=== PATIENT | female | born 1965 | race Caucasian/White ===

== ENCOUNTER 2019-11-18 10:42 | Day surgery (SDC) | payer OTHER ==
[2019-11-13 09:42] VITALS: BMI 32.5
[~2019-11-18 10:42] MED LIST: ACETAMINOPHEN TAB 500 MG TAB PO ONE; DEXAMETHASONE SOD PHOSPHATE 10 MG/ML 1 ML VIAL IV ONE; HEPARIN SODIUM,PORCINE 5,000 UNIT/ML 1 ML VIAL SQ ONE; LACTATED RINGERS 1,000 ML IV SCH; LIDOCAINE 1% (10MG/ML) FOR IV START INTRADERMA PRN; ONDANSETRON 4 MG/2 ML VIAL IVP ONE; Pre Op ABX Message 1 EACH MISC MISCELLANE ONE
[2019-11-18] MEDS ORDERED: HEPARIN SODIUM,PORCINE 5,000 UNIT/ML 1 ML VIAL ONE (11:16)
[2019-11-18] MEDS ORDERED: ACETAMINOPHEN TAB 500 MG TAB ONE (11:16)
[2019-11-18] MEDS ORDERED: ONDANSETRON 4 MG/2 ML VIAL ONE (11:16)
[2019-11-18] MEDS ORDERED: LIDOCAINE 1% INJ 10MG/ML (20 ML MDV) ONE (12:11)
[2019-11-18] MEDS ORDERED: PROPOFOL 10 MG/ML 20 ML VIAL IV ONE (12:11)
[2019-11-18] MEDS ORDERED: MIDAZOLAM 2 MG/2 ML VIAL ONE (12:11)
[2019-11-18] MEDS ORDERED: fentaNYL (PF) 50 MCG/ML 2 ML AMP ONE (12:11)
[2019-11-18] MEDS ORDERED: LIDOCAINE 1%-EPI 1:100,000 20 ML VIAL SQ ONE ×2 (12:23→12:31)
[2019-11-18 12:42] VITALS: RESP 16; TEMP 98
--- NOTE | 2019-11-18 12:49 | P.OP ---
Date of Procedure: 11/18/19 Preoperative Diagnosis: Right arm lipoma 2 Postoperative Diagnosis: Right arm lipoma 2 Procedure(s) Performed: Excision of right arm lipoma 2 Anesthesia: BENNY Surgeon: Bobby Mccullough Estimated Blood Loss (ml): 5 Pathology: other (Right arm lipoma) Condition: stable Disposition: PACU Description of Procedure: The patient's placed on the operating table in the supine position. She received general anesthesia. Her right arm was prepped and draped in sterile fashion. The patient to lipomas. The right upper lipoma was just below the elbow measuring 3 cm diameter. The second lower lipoma was located just above the wrist measuring 3 cm diameter. The skin was incised over each lipoma then using left cautery the lipoma was dissected free and sent to pathology. Identical fashion was used to dissect each lipoma. The skin was then closed interrupted 3-0 Monocryl suture. Dermabond was applied. Patient top she will well she was sent to recovery in stable condition.
--- NOTE | 2019-11-18 12:50 | P.GSHP ---
History of Present Illness H&P Date: 11/18/19 Chief Complaint: Right arm lipoma 2 This 54-year-old female comes today for excision of right arm with posterior patient is to lipomas right arm measuring approximately 3 cm diameter each the upper lipoma is located just below the elbow the lower lipomas located just above the wrist in the right arm. Past Medical History Past Medical History: Asthma, Deep Vein Thrombosis (DVT), GERD/Reflux, Hearing Disorder / Deafness, Hyperlipidemia, Osteoarthritis (OA), Sleep Apnea/CPAP/BIPAP, Thyroid Disorder Additional Past Medical History / Comment(s): BLOOD CLOT LEFT ARM, GRAVES DISEASE History of Any Multi-Drug Resistant Organisms: MRSA Date of last positivie culture/infection: 2017 MDRO Source:: UNDER THE RIGHT BREAST Past Surgical History: Breast Surgery, Cholecystectomy, Tubal Ligation Additional Past Surgical History / Comment(s): RIGHT BREAST SURGERY X2, RIGHT SHOULDER- LIPOMA ,THYROID REMOVED Past Anesthesia/Blood Transfusion Reactions: No Reported Reaction Smoking Status: Current every day smoker - Past Family History Mother Family Medical History: Cancer Father Family Medical History: Cancer Medications and Allergies Home Medications Medication Instructions Recorded Confirmed Type Albuterol Inhaler [Ventolin Hfa 2 puff INHALATION RT-TID PRN 11/13/19 11/18/19 History Inhaler] Chick [place] 4 ml PO BID 11/13/19 11/18/19 History Glysen 1 tab PO QID 11/13/19 11/18/19 History Hemp Oil 2 ml PO BID 11/13/19 11/18/19 History Levothyroxine Sodium [Synthroid] 175 mcg PO DAILY 11/13/19 11/18/19 History Milk Thistle 1,000 mg PO DAILY 11/13/19 11/18/19 History Omeprazole 20 mg PO DAILY 11/13/19 11/18/19 History Paratosin 2 tab PO HS 11/13/19 11/18/19 History Red Marine Algae 2 tab PO BID 11/13/19 11/18/19 History Repair Vit 1 mg pe PO DAILY 11/13/19 11/18/19 History diphenhydrAMINE [Benadryl] 25 mg PO BID 11/13/19 11/18/19 History Allergies Allergy/AdvReac Type Severity Reaction Status Date / Time adhesive tape Allergy Itching Verified 11/18/19 11:07 aripiprazole [From Abilify] Allergy Swelling Verified 11/18/19 11:07 OF THROAT guaifenesin [From Mucinex] Allergy Anaphylaxis Verified 11/18/19 11:07 haloperidol [From Haldol] Allergy Swelling Verified 11/18/19 11:07 OF THROAT latex Allergy Swelling Verified 11/18/19 11:07 tramadol Allergy Swelling Verified 11/18/19 11:07 OF THROAT Surgical - Exam Vital Signs Temp Pulse Resp BP Pulse Ox 97.2 F L 81 18 107/62 98 11/18/19 11:10 11/18/19 11:10 11/18/19 11:10 11/18/19 11:10 11/18/19 11:10 - General well developed, well nourished - Eyes PERRL - Integumentary 3 cm lipoma located on the right arm just below elbow, 3 cm lipoma located just above the right wrist Assessment and Plan Assessment: Lipoma 2. We'll perform excision. We'll perform excision.
[2019-11-18] MEDS: HYDROmorphone 0.5 MG/0.5 ML SYRINGE IVP PRN ×2 (13:05→13:17)
[2019-11-18] MEDS ORDERED: LACTATED RINGERS 1,000 ML IV ONE (13:22)
[2019-11-18 14:04] VITALS: BP 112/77; PULSE 69
== END 2019-11-18 14:10 | disposition home or self-care (01) ==
LOC: OR 10:42
PROVIDERS: ATTEND Surgery
DX: D17.21 Benign lipomatous neoplasm of skin and subcutaneous tissue of right arm (principal); E05.00 Thyrotoxicosis with diffuse goiter without thyrotoxic crisis or storm; K21.9 Gastro-esophageal reflux disease without esophagitis; M19.90 Unspecified osteoarthritis, unspecified site; E78.5 Hyperlipidemia, unspecified; G47.30 Sleep apnea, unspecified; E89.0 Postprocedural hypothyroidism; H91.90 Unspecified hearing loss, unspecified ear; F17.200 Nicotine dependence, unspecified, uncomplicated; Z91.040 Latex allergy status; Z91.048 Other nonmedicinal substance allergy status; Z88.6 Allergy status to analgesic agent; Z88.8 Allergy status to other drugs, medicaments and biological substances; Z86.718 Personal history of other venous thrombosis and embolism; J45.909 Unspecified asthma, uncomplicated; Z86.14 Personal history of Methicillin resistant Staphylococcus aureus infection; Z86.19 Personal history of other infectious and parasitic diseases; Z79.899 Other long term (current) drug therapy; Z80.9 Family history of malignant neoplasm, unspecified; Z90.49 Acquired absence of other specified parts of digestive tract; Z98.890 Other specified postprocedural states
CPT/HCPCS: 88304; 24071; 25071; J2250; J1644; J1100; J2405; J2001; J3010; J2704; J1170

== ENCOUNTER → 2019-12-26 | Day surgery (SDC) | payer OTHER ==
[2019-12-20 11:58] VITALS: BMI 30.9
[~2019-12-26] MED LIST changes: -ACETAMINOPHEN TAB 500 MG TAB PO ONE; -DEXAMETHASONE SOD PHOSPHATE 10 MG/ML 1 ML VIAL IV ONE; -HEPARIN SODIUM,PORCINE 5,000 UNIT/ML 1 ML VIAL SQ ONE; +LIDOCAINE 1% (10MG/ML) FOR IV START INTRADERMA ONE; -LIDOCAINE 1% (10MG/ML) FOR IV START INTRADERMA PRN; +LIDOCAINE 1% INJ 10MG/ML (20 ML MDV) ONE; -ONDANSETRON 4 MG/2 ML VIAL IVP ONE; +PROPOFOL 10 MG/ML 20 ML VIAL IV ONE; -Pre Op ABX Message 1 EACH MISC MISCELLANE ONE
[2019-12-26 08:22] VITALS: RESP 16; TEMP 97.4
--- NOTE | 2019-12-26 08:56 | P.GSHP ---
History of Present Illness H&P Date: 12/26/19 Chief Complaint: GERD, screening colonoscopy This a 54-year-old female been presents for EGD and screening colonoscopy. She's had issues with GERD. Past Medical History Past Medical History: Asthma, COPD, Deep Vein Thrombosis (DVT), GERD/Reflux, Hearing Disorder / Deafness, Hyperlipidemia, Liver Disease, Osteoarthritis (OA), Pneumonia, Sleep Apnea/CPAP/BIPAP, Thyroid Disorder Additional Past Medical History / Comment(s): hx BLOOD CLOT LEFT ARM, GRAVES DISEASE, no cpap used, IBS, diff swallowing, hx hepatitis C-tx 2018, History of Any Multi-Drug Resistant Organisms: MRSA Date of last positivie culture/infection: 2017 MDRO Source:: UNDER THE RIGHT BREAST Past Surgical History: Breast Surgery, Cholecystectomy, Orthopedic Surgery, Tubal Ligation Additional Past Surgical History / Comment(s): RIGHT BREAST SURGERY X2(cyst,abscess), mult lipoma removed from RIGHT SHOULDER, THYROIDECTOMY, lipoma x 2 removed rt arm Past Anesthesia/Blood Transfusion Reactions: No Reported Reaction Smoking Status: Current every day smoker - Past Family History Mother Family Medical History: Cancer Father Family Medical History: Cancer Medications and Allergies Home Medications Medication Instructions Recorded Confirmed Type Albuterol Inhaler [Ventolin Hfa 2 puff INHALATION RT-TID PRN 11/13/19 12/20/19 History Inhaler] Chick [place] 2 ml PO QAM 11/13/19 12/20/19 History Glysen 1 tab PO TID 11/13/19 12/20/19 History Levothyroxine Sodium [Synthroid] 175 mcg PO DAILY 11/13/19 12/20/19 History Milk Thistle 175 mg PO DAILY 11/13/19 12/20/19 History Omeprazole 20 mg PO DAILY 11/13/19 12/20/19 History Red Marine Algae 700 mg PO QAM 11/13/19 12/20/19 History Repair Vit 1 mg pe PO DAILY 11/13/19 12/20/19 History diphenhydrAMINE [Benadryl] 25 mg PO BID PRN 11/13/19 12/20/19 History Calcium/Magnesium/Zinc 1 each PO DAILY 12/20/19 12/20/19 History [Lpfwcbb-Jduetfxps-Ejsq Tablet] Calm 5 2 ml PO QAM 12/20/19 12/20/19 History Fuse 1 applicate PO BID 12/20/19 12/20/19 History Tiffany Cap 2 cap PO DAILY 12/20/19 12/20/19 History Magnesium 400 mg PO BID 12/20/19 12/20/19 History Parastosin 3 tab PO HS 12/20/19 12/20/19 History Allergies Allergy/AdvReac Type Severity Reaction Status Date / Time adhesive tape Allergy Itching Verified 12/26/19 08:17 aripiprazole [From Abilify] Allergy Swelling Verified 12/26/19 08:17 OF THROAT guaifenesin [From Mucinex] Allergy Anaphylaxis Verified 12/20/19 11:40 haloperidol [From Haldol] Allergy Swelling Verified 12/26/19 08:17 OF THROAT latex Allergy Swelling/it Verified 12/26/19 08:17 armand tramadol Allergy Swelling Verified 12/26/19 08:17 OF THROAT Surgical - Exam Vital Signs Temp Pulse Resp BP Pulse Ox 97.4 F L 69 16 107/66 99 12/26/19 08:21 12/26/19 08:21 12/26/19 08:21 12/26/19 08:21 12/26/19 08:21 - General well developed, well nourished, no distress - Eyes PERRL - ENT normal pinna - Neck no masses - Respiratory normal expansion - Cardiovascular Rhythm: regular - Abdomen Abdomen: soft, non tender Assessment and Plan Assessment: GERD we'll perform EGD and screening colonoscopy
--- NOTE | 2019-12-26 09:11 | P.OP ---
Date of Procedure: 12/26/19 Preoperative Diagnosis: . GERD Screening colonoscopy Postoperative Diagnosis: Antral gastritis Small hiatal hernia Procedure(s) Performed: EGD Colonoscopy Anesthesia: MAC Surgeon: Bobby Mccullough Pathology: other (Antrum) Condition: stable Disposition: PACU Description of Procedure: The patient's placed on the endoscopy table in the lateral position. She received IV sedation. The gastroscope was placed in the oropharynx passed in the esophagus and stomach. Scope was then placed through the pylorus. The first and second portion of the duodenum appeared normal. Scope was then brought back the antrum and this was mildly inflamed. A biopsies performed. Scope was retroflexed and remainder stomach appeared normal. There was a small hiatal hernia. The GE junction was at 40 cm. The distal esophagus appeared normal. The proximal esophagus. Normal. The scope was withdrawn for patient. Next digital rectal exam is performed which revealed external hemorrhoids. Flexible colonoscope was then placed patient anus passed throughout the entire colon. The ileocecal valve was visualized. The cecum, ascending and transverse colon appeared normal. In the descending colon was a few scattered diverticula. Scope was brought back the sigmoid colon this appeared normal. Scope was back the rectum there was a small sessile polyp removed with a cold forcep. Scope was withdrawn for patient.
[2019-12-26 09:46] VITALS: BP 121/80; PULSE 79
== END | disposition home or self-care (01) ==
LOC: MERGE 12-12 09:05 → ORWHC2ENDO 07:50
PROVIDERS: ATTEND Surgery
DX: Z12.11 Encounter for screening for malignant neoplasm of colon (principal); K62.1 Rectal polyp; K29.50 Unspecified chronic gastritis without bleeding; K21.9 Gastro-esophageal reflux disease without esophagitis; K44.9 Diaphragmatic hernia without obstruction or gangrene; K64.4 Residual hemorrhoidal skin tags; K57.30 Diverticulosis of large intestine without perforation or abscess without bleeding; J44.9 Chronic obstructive pulmonary disease, unspecified; R13.10 Dysphagia, unspecified; K58.9 Irritable bowel syndrome, unspecified; Z86.718 Personal history of other venous thrombosis and embolism; H91.90 Unspecified hearing loss, unspecified ear; E78.5 Hyperlipidemia, unspecified; E89.0 Postprocedural hypothyroidism; K76.9 Liver disease, unspecified; M19.90 Unspecified osteoarthritis, unspecified site; Z87.01 Personal history of pneumonia (recurrent); G47.30 Sleep apnea, unspecified; Z99.89 Dependence on other enabling machines and devices; E05.00 Thyrotoxicosis with diffuse goiter without thyrotoxic crisis or storm; F25.9 Schizoaffective disorder, unspecified; Z86.19 Personal history of other infectious and parasitic diseases; Z86.14 Personal history of Methicillin resistant Staphylococcus aureus infection; Z90.49 Acquired absence of other specified parts of digestive tract; Z98.51 Tubal ligation status; Z98.890 Other specified postprocedural states; F17.200 Nicotine dependence, unspecified, uncomplicated; Z80.9 Family history of malignant neoplasm, unspecified; Z79.890 Hormone replacement therapy; Z79.899 Other long term (current) drug therapy; Z91.040 Latex allergy status; Z88.5 Allergy status to narcotic agent; Z88.8 Allergy status to other drugs, medicaments and biological substances; Z91.09 Other allergy status, other than to drugs and biological substances
CPT/HCPCS: 88305; 45380; 43239; J2001; J2704

== ENCOUNTER 2020-06-30 19:23 | Observation (INO) | payer OTHER ==
[2020-06-30] MEDS ORDERED: SODIUM CHLORIDE 0.9% 500 ML 500 ML IV STA (19:44)
--- NOTE | 2020-06-30 19:59 | ED ---
General Adult HPI - General Chief complaint: Weakness Stated complaint: Slurred speach,Arm numbness Time Seen by Provider: 06/30/20 19:39 Source: patient, RN notes reviewed, old records reviewed Mode of arrival: ambulatory Limitations: no limitations - History of Present Illness Initial comments: 54-year-old female presenting with right arm weakness which has been ongoing for the past 2 weeks. This is associated with pain and she was scheduled to see her primary care for evaluation. However the symptoms have worsened. She states that she no reported some weakness in her right leg. And at 5:30 PM she had an episode of slurred speech. This has since resolved. She has no previous history of CVA. She states that her limb weakness was associated with pain and ongoing for several weeks but the slurred speech was new. She has no slurred speech or facial weakness at the time my evaluation the symptoms have completely resolved. No chest pain or dyspnea. No abdominal pain nausea vomiting. No fever. - Related Data Home Medications Medication Instructions Recorded Confirmed Albuterol Inhaler [Ventolin Hfa 2 puff INHALATION RT-Q4H PRN 11/13/19 06/30/20 Inhaler] Omeprazole 20 mg PO DAILY 11/13/19 06/30/20 Levothyroxine Sodium [Synthroid] 150 mcg PO DAILY 06/30/20 06/30/20 Lurasidone HCl [Latuda] 120 mg PO HS 06/30/20 06/30/20 Prazosin HCl 1 mg PO HS 06/30/20 06/30/20 Sulfamethox-Tmp 800-160Mg [Bactrim 1 tab PO BID 06/30/20 06/30/20 DS 800-160 mg] Varenicline [Chantix Continuing 1 mg PO BID 06/30/20 06/30/20 Pack] hydrOXYzine pamoate [hydrOXYzine 25 mg PO BID PRN 06/30/20 06/30/20 PAMOATE] metroNIDAZOLE [Flagyl] 500 mg PO DIRECTED 06/30/20 06/30/20 traZODone HCL 300 mg PO HS PRN 06/30/20 06/30/20 Allergies Allergy/AdvReac Type Severity Reaction Status Date / Time adhesive tape Allergy Itching Verified 06/30/20 21:36 aripiprazole [From Abilify] Allergy Swelling Verified 06/30/20 21:36 OF THROAT guaifenesin [From Mucinex] Allergy Anaphylaxis Verified 06/30/20 21:36 haloperidol [From Haldol] Allergy Swelling Verified 06/30/20 21:36 OF THROAT latex Allergy Swelling/it Verified 06/30/20 21:36 armand tramadol Allergy Swelling Verified 06/30/20 21:36 OF THROAT Review of Systems ROS Statement: Those systems with pertinent positive or pertinent negative responses have been documented in the HPI. ROS Other: All systems not noted in ROS Statement are negative. Past Medical History Past Medical History: Asthma, COPD, Deep Vein Thrombosis (DVT), GERD/Reflux, Hearing Disorder / Deafness, Hyperlipidemia, Liver Disease, Osteoarthritis (OA), Pneumonia, Sleep Apnea/CPAP/BIPAP, Thyroid Disorder Additional Past Medical History / Comment(s): hx BLOOD CLOT LEFT ARM, GRAVES DISEASE, no cpap used, IBS, diff swallowing, hx hepatitis C-tx 2017, History of Any Multi-Drug Resistant Organisms: MRSA Date of last positivie culture/infection: 2016 MDRO Source:: UNDER THE RIGHT BREAST Past Surgical History: Breast Surgery, Cholecystectomy, Orthopedic Surgery, Tubal Ligation Additional Past Surgical History / Comment(s): RIGHT BREAST SURGERY X2(cyst,abscess), mult lipoma removed from RIGHT SHOULDER, THYROIDECTOMY, lipoma x 2 removed rt arm Past Anesthesia/Blood Transfusion Reactions: No Reported Reaction Past Psychological History: Anxiety, Bipolar, Depression, PTSD, Schizoaffective Disorder Smoking Status: Current every day smoker Past Alcohol Use History: None Reported Past Drug Use History: None Reported - Past Family History Mother Family Medical History: Cancer Father Family Medical History: Cancer General Exam Limitations: no limitations General appearance: alert, in no apparent distress Head exam: Present: atraumatic, normocephalic Eye exam: Present: normal appearance, PERRL ENT exam: Present: normal exam Neck exam: Present: normal inspection, tenderness Respiratory exam: Present: normal lung sounds bilaterally. Absent: respiratory distress, wheezes Cardiovascular Exam: Present: regular rate, normal rhythm GI/Abdominal exam: Present: soft, distended. Absent: tenderness, guarding Extremities exam: Present: normal inspection, normal capillary refill. Absent: full ROM (Decreased range of motion of the right upper extremity secondary to pain.), pedal edema Neurological exam: Present: alert, oriented X3, CN II-XII intact, motor sensory deficit (Drift in the right upper extremity, normal speech) Psychiatric exam: Present: normal affect, normal mood Skin exam: Present: warm, dry, intact. Absent: cyanosis, diaphoretic Course Vital Signs 06/30/20 19:34 Temperature 98.6 F Pulse Rate 91 Respiratory 20 Rate Blood Pressure 131/77 O2 Sat by Pulse 97 Oximetry EKG Findings - EKG Comments: EKG Findings:: EKG: Normal sinus rhythm, possible left atrial enlargement, low voltage, rate of 88, Q ROS duration 68, NE interval 146, QTC 445, no ST segment elevation. Medical Decision Making - Medical Decision Making 54-year-old female with an episode of slurred speech currently resolved. Additional complaint of weakness in the right arm which is associated with pain and has been present for the last 2 weeks. This does seem more musculoskeletal rather than acute CVA. Her dysarthria was acute in onset and currently resolved suggestive of a TIA. Workup in the emergency department included CT CT angiography which is negative for intracranial hemorrhage, or acute occlusion or stenosis. Patient has normal CBC, normal CMP. She is given an aspirin in the emergency department. She will be admitted for TIA evaluation. Case discussed with Dr. Aden who will admit. Neurology placed on consult. - Lab Data Result diagrams: 06/30/20 20:16 06/30/20 20:16 Lab Results 06/30/20 06/30/20 06/30/20 Range/Units 20:16 20:16 20:16 WBC 8.5 (3.8-10.6) k/uL RBC 3.94 (3.80-5.40) m/uL Hgb 13.2 (11.4-16.0) gm/dL Hct 37.9 (34.0-46.0) % MCV 96.3 (80.0-100.0) fL MCH 33.5 (25.0-35.0) pg MCHC 34.7 (31.0-37.0) g/dL RDW 12.8 (11.5-15.5) % Plt Count 247 (150-450) k/uL MPV 6.6 Neutrophils % 45 % Lymphocytes % 42 % Monocytes % 5 % Eosinophils % 5 % Basophils % 1 % Neutrophils # 3.8 (1.3-7.7) k/uL Lymphocytes # 3.6 (1.0-4.8) k/uL Monocytes # 0.4 (0-1.0) k/uL Eosinophils # 0.5 (0-0.7) k/uL Basophils # 0.0 (0-0.2) k/uL PT 9.7 (9.0-12.0) sec INR 0.9 (<1.2) APTT 22.3 (22.0-30.0) sec Sodium (137-145) mmol/L Potassium (3.5-5.1) mmol/L Chloride (98-107) mmol/L Carbon Dioxide (22-30) mmol/L Anion Gap mmol/L BUN (7-17) mg/dL Creatinine (0.52-1.04) mg/dL Est GFR (CKD-EPI)AfAm (>60 ml/min/1.73 sqM) Est GFR (CKD-EPI)NonAf (>60 ml/min/1.73 sqM) Glucose (74-99) mg/dL Calcium (8.4-10.2) mg/dL Total Bilirubin (0.2-1.3) mg/dL AST (14-36) U/L ALT (4-34) U/L Alkaline Phosphatase (38-126) U/L Troponin I (0.000-0.034) ng/mL Total Protein (6.3-8.2) g/dL Albumin (3.5-5.0) g/dL Urine Color Yellow Urine Appearance Clear (Clear) Urine pH 7.5 (5.0-8.0) Ur Specific Craig 1.008 (1.001-1.035) Urine Protein Negative (Negative) Urine Glucose (UA) Negative (Negative) Urine Ketones Negative (Negative) Urine Blood Negative (Negative) Urine Nitrite Negative (Negative) Urine Bilirubin Negative (Negative) Urine Urobilinogen <2.0 (<2.0) mg/dL Ur Leukocyte Esterase Negative (Negative) 06/30/20 06/30/20 Range/Units 20:16 20:16 WBC (3.8-10.6) k/uL RBC (3.80-5.40) m/uL Hgb (11.4-16.0) gm/dL Hct (34.0-46.0) % MCV (80.0-100.0) fL MCH (25.0-35.0) pg MCHC (31.0-37.0) g/dL RDW (11.5-15.5) % Plt Count (150-450) k/uL MPV Neutrophils % % Lymphocytes % % Monocytes % % Eosinophils % % Basophils % % Neutrophils # (1.3-7.7) k/uL Lymphocytes # (1.0-4.8) k/uL Monocytes # (0-1.0) k/uL Eosinophils # (0-0.7) k/uL Basophils # (0-0.2) k/uL PT (9.0-12.0) sec INR (<1.2) APTT (22.0-30.0) sec Sodium 135 L (137-145) mmol/L Potassium 4.5 (3.5-5.1) mmol/L Chloride 102 (98-107) mmol/L Carbon Dioxide 26 (22-30) mmol/L Anion Gap 7 mmol/L BUN 11 (7-17) mg/dL Creatinine 1.07 H (0.52-1.04) mg/dL Est GFR (CKD-EPI)AfAm 68 (>60 ml/min/1.73 sqM) Est GFR (CKD-EPI)NonAf 59 (>60 ml/min/1.73 sqM) Glucose 100 H (74-99) mg/dL Calcium 9.2 (8.4-10.2) mg/dL Total Bilirubin 0.4 (0.2-1.3) mg/dL AST 23 (14-36) U/L ALT 14 (4-34) U/L Alkaline Phosphatase 57 (38-126) U/L Troponin I <0.012 (0.000-0.034) ng/mL Total Protein 7.9 (6.3-8.2) g/dL Albumin 4.6 (3.5-5.0) g/dL Urine Color Urine Appearance (Clear) Urine pH (5.0-8.0) Ur Specific Craig (1.001-1.035) Urine Protein (Negative) Urine Glucose (UA) (Negative) Urine Ketones (Negative) Urine Blood (Negative) Urine Nitrite (Negative) Urine Bilirubin (Negative) Urine Urobilinogen (<2.0) mg/dL Ur Leukocyte Esterase (Negative) Disposition Clinical Impression: TIA (transient ischemic attack) Disposition: ADMITTED IP TO THIS HOSP Condition: Stable Is patient prescribed a controlled substance at d/c from ED?: No Referrals: Corinne Guzmán MD [Primary Care Provider] - 1-2 days Decision to Admit Reason: Admit from EC Decision Date: 06/30/20 Decision Time: 21:55
[2020-06-30 20:31] LABS: Basophils % (A) 1 %; Eosinophils # (A) 0.5 k/uL (0-0.7); Eosinophils % (A) 5 %; HCT 37.9 % (34.0-46.0); HGB 13.2 gm/dL (11.4-16.0); Lymphocytes # (A) 3.6 k/uL (1.0-4.8); Lymphocytes % (A) 42 %; MCH 33.5 pg (25.0-35.0); MCHC 34.7 g/dL (31.0-37.0); MCV 96.3 fL (80.0-100.0); Mean Platelet Volume 6.6; Monocytes # (A) 0.4 k/uL (0-1.0); Monocytes % (A) 5 %; Neutrophils # (A) 3.8 k/uL (1.3-7.7); Neutrophils % (A) 45 %; Platelet Count 247 k/uL (150-450); RBC 3.94 m/uL (3.80-5.40); RDW 12.8 % (11.5-15.5); WBC 8.5 k/uL (3.8-10.6)
[2020-06-30 20:47] LABS: Appearance,Urine Clear (Clear); Bilirubin,Urine Negative (Negative); Blood,Urine Negative (Negative); Color,Urine Yellow; Glucose,Urine (UA) Negative (Negative); Ketones,Urine Negative (Negative); Leukocyte Esterase,Urine Negative (Negative); Nitrite,Urine Negative (Negative); PH, Urine 7.5 (5.0-8.0); Protein,Urine Negative (Negative); Specific Gravity,Urine 1.008 (1.001-1.035); Urobilinogen,Urine <2.0 mg/dL (<2.0)
[2020-06-30 20:51] LABS: Albumin 4.6 g/dL (3.5-5.0); Calcium 9.2 mg/dL (8.4-10.2); Potassium 4.5 mmol/L (3.5-5.1); Total Bilirubin 0.4 mg/dL (0.2-1.3); Total Protein 7.9 g/dL (6.3-8.2)
[2020-06-30 20:52] LABS: INR 0.9 (<1.2); Partial Thromboplastin Time 22.3 sec (22.0-30.0); Prothrombin Time 9.7 sec (9.0-12.0)
--- NOTE | 2020-06-30 21:13 | CT ---
EXAMINATION TYPE: CT brain wo con DATE OF EXAM: 06/30/2020 COMPARISON: None HISTORY: Neuro deficits. Pt c/o slurred speech, numbness in RT hands and bilateral feet. Not called a s code stroke CT DLP: 1161.8 mGycm Automated exposure control for dose reduction was used. Ventricles have normal size. There is no mass effect nor midline shift. There is no sign of intracran ial hemorrhage. Calvarium is intact. Skull base is intact. There is no evidence of cerebral edema. IMPRESSION: Negative unenhanced head CT scan.
--- NOTE | 2020-06-30 21:26 | XR ---
EXAMINATION TYPE: XR chest 2V DATE OF EXAM: 06/30/2020 COMPARISON: NONE HISTORY: Altered mental status. Weakness. TECHNIQUE: 2 views FINDINGS: Heart and mediastinum are normal. Lungs are clear. Diaphragm is normal. Bony thorax appears normal. There are chest leads. IMPRESSION: Normal chest. Normal heart.
--- NOTE | 2020-06-30 21:33 | CT ---
EXAMINATION TYPE: CT angio head neck DATE OF EXAM: 06/30/2020 COMPARISON: None HISTORY: Neuro deficits. Pt c/o slurred speech, numbness in RT hands and bilateral feet. Not called a s code stroke. Isovue CT DLP: 537.3 mGycm Automated exposure control for dose reduction was used. CONTRAST: Performed with IV Contrast, patient injected with 100 mL of Isovue 370. There are 3-D post processed images. There is normal branching pattern of the great vessels on the aortic arch. There is bilateral arteria l flow in the subclavian arteries. There is arterial flow in the common internal and external carotid arteries bilaterally. There is arterial flow in both vertebral arteries. There is arterial flow in t he vertebrobasilar artery system. There is wide patency of the carotid artery bifurcations. I see no significant plaque formation. There is no evidence of carotid or vertebral artery aneurysm or dissect ion. There is arterial flow in the anterior middle and posterior cerebral arteries. There is no mass effec t. There is no evidence of intracranial aneurysm or neovascularity. There is normal contrast opacific ation of the venous sinuses. There is no evidence of intracranial arterial stenosis. IMPRESSION: Negative CT angiogram of the neck. Negative CT angiogram of the brain.
[2020-06-30] MEDS ORDERED: ASPIRIN 325 MG TAB PO STA (21:37)
[2020-06-30] MEDS ORDERED: ACETAMINOPHEN TAB 325 MG TAB PO PRN (21:52)
[2020-06-30] MEDS ORDERED: KETOROLAC 15 MG/ML 1 ML VIAL IVP STA (21:56)
[2020-06-30] MEDS: SODIUM CHLORIDE 0.9% 1,000 ML IV SCH (22:06)
[2020-07-01] MEDS ORDERED: hydrOXYzine pamoate 25 MG CAP PO PRN (01:00)
[2020-07-01] MEDS: traZODone HCL 100 MG TAB PO PRN ×2 (02:13→20:56)
[2020-07-01] MEDS: LURASIDONE HCL 120 MG PO SCH ×2 (02:14→20:53)
[2020-07-01 05:26] LABS: Cholesterol 211 mg/dL (<200); HDL Cholesterol 45 mg/dL (40-60); LDL Cholesterol,Calculated 133 mg/dL (0-99); Triglycerides 166 mg/dL (<150)
[2020-07-01] MEDS: LEVOTHYROXINE 75 MCG TAB PO SCH (05:49)
[2020-07-01] MEDS: SODIUM CHLORIDE 0.9% 1,000 ML IV SCH ×2 (08:49→18:08)
[2020-07-01] MEDS: PANTOPRAZOLE 40 MG TABLET PO SCH (08:49)
[2020-07-01] MEDS ORDERED: ASPIRIN 325 MG TAB PO SCH (09:00)
[2020-07-01] MEDS ORDERED: ALPRAZolam 0.5 MG TAB PO STA (09:18)
--- NOTE | 2020-07-01 12:01 | P.CNNES ---
History of Present Illness Consult date: 07/01/20 Requesting physician: Delroy Sahu Reason for Consult: transient episode of slurred speech History of Present Illness: This is a 54-year-old woman with medical history of poly-drug abuse for years (sober for 3 years), heavy alcohol use (sober for past 1 year), alcohol withdrawl seizue, hyperlipidemia, hypothyroidism, DVT (from IV drug use about 3 years ago), hepatitis C (from IV drug use that received treatment in past and is in remission for past 3 years) that presented emergency department on 06/30/2020 for a transient episode of slurred speech. Patient stated that the according to her sister yesterday she was at the patient had slurring the speech that lasted for a few hours to and resolved. Per the ED note the it is mentioned that the she had the episode of slurring the speech at 5:30 PM yesterday. Upon asking the patient if she felt like she was slurring her speech she said was hard for her to tell. But she denies any focal weakness or any new numbness she was seen with this. She stated for the last 2 weeks she's been having right arm pain that it's very excruciating and she is having difficulty raising her arm as a result of her right arm pain. He said the right arm radiates down all the way to her entire right hand. She said that this has happened all of a sudden about 2 weeks ago. Upon asking her if she is having neck pain that's rating down she said yes with further history she said she has chronic neck pain that radiates down basically bilateral arms but it seems that this is a new right arm pain but it is very hard to get that history from the patient. As well as she is having the pain and her right medial thigh region also going on for last 2 weeks and she's having difficulty as well as the raising the leg but she said the arm is worse than that the leg. She said that she has numbness in the the all the fingertips of the right hand as well as the right foot numbness but then later she was tell me that that she has numbness that been going on for some years of both hands and feet but possibly this is as been worsening. He notices intermittent cramping of her bilateral lower extremity mostly in the feet that intermittent for past couple weeks. She has this chronic back pain that sometimes shoots down all the way to the hands. She said she also has a chronic lower back pain and she was told the by optimization specialist that she has a missing disc in her lower back and the she was supposed to get surgery in the past but is was never addressed since she moved back after being the clean from drugs. She also has a chronic bilateral hip pain and she was told that she has some tearing of bilateral hips. As stated above the patient has a chronic history of poly-drug use but she is been the clean for the last 3 years. She stated that she was the IV drugs as a heroin and multiple drugs. She as a result of the IV drug use she had DVT about was not on any the long-term anticoagulation. She's been the heavy alcohol use and she's been sober for last 1 year. She said in the past she stopped a optimization specialist at at [place] and she was told that she needed surgery but this was not addressed because she was doing drugs and the currently moved back home since being sober Workup in the hospital consisted of: Initial vital signs: Blood pressure 131/77, heart rate of 91, temperature of 98.6 Fahrenheit, respiratory of 20, pulse ox of 97% at room air. CT of the head is reported as negative unenhanced head CT scan. CT angiography of the head and neck is reported as negative for both. EKG is reported as normal sinus rhythm. Possible left atrial enlargement. Low voltage QRS. Septal infarct, age undetermined. Abnormal EKG. Initial white blood cells 8.5 which is normal. Initial serum glucose was 100. Lipid panel: Triglyceride 166, triglyceride of 211, LDL is 133, HDL is 45. The ED felt the patient and they felt her weakness of the right arm is likely due to musculoskeletal because of the pain and felt this was more transient ischemic attack because of the slurred speech. Review of Systems Review of system: The 12 point system was reviewed and apparent positive and negative per HPI. Past Medical History Past Medical History: Asthma, COPD, Deep Vein Thrombosis (DVT), GERD/Reflux, Hearing Disorder / Deafness, Hyperlipidemia, Liver Disease, Osteoarthritis (OA), Pneumonia, Sleep Apnea/CPAP/BIPAP, Thyroid Disorder Additional Past Medical History / Comment(s): hx BLOOD CLOT LEFT ARM, GRAVES DISEASE, no cpap used, IBS, diff swallowing, hx hepatitis C-tx 2017, History of Any Multi-Drug Resistant Organisms: MRSA Date of last positivie culture/infection: 2016 MDRO Source:: UNDER THE RIGHT BREAST Past Surgical History: Breast Surgery, Cholecystectomy, Orthopedic Surgery, Tubal Ligation Additional Past Surgical History / Comment(s): RIGHT BREAST SURGERY X2(cyst,abscess), mult lipoma removed from RIGHT SHOULDER, THYROIDECTOMY, lipoma x 2 removed rt arm Past Anesthesia/Blood Transfusion Reactions: No Reported Reaction Past Psychological History: Anxiety, Bipolar, Depression, PTSD, Schizoaffective Disorder Smoking Status: Current every day smoker Past Alcohol Use History: None Reported Additional Past Alcohol Use History / Comment(s): STARTED SMOKING AT AGE 5 QUIT ON AND OFF (TRYING TO QUIT NOW) 1/2 PPD. HISTORY OF ALCOHOL ABUSE Past Drug Use History: None Reported Additional Drug Use History / Comment(s): LAST DRUGS TAKEN DEC 2017. USES HEMP OIL(fuse) NOW FOR DEPRESSION - Past Family History Mother Family Medical History: Cancer Father Family Medical History: Cancer Medications and Allergies Home Medications Medication Instructions Recorded Confirmed Type Albuterol Inhaler [Ventolin Hfa 2 puff INHALATION RT-Q4H PRN 11/13/19 06/30/20 History Inhaler] Omeprazole 20 mg PO DAILY 11/13/19 06/30/20 History Levothyroxine Sodium [Synthroid] 150 mcg PO DAILY 06/30/20 06/30/20 History Lurasidone HCl [Latuda] 120 mg PO HS 06/30/20 06/30/20 History Prazosin HCl 1 mg PO HS 06/30/20 06/30/20 History Sulfamethox-Tmp 800-160Mg [Bactrim 1 tab PO BID 06/30/20 06/30/20 History DS 800-160 mg] Varenicline [Chantix Continuing 1 mg PO BID 06/30/20 06/30/20 History Pack] hydrOXYzine pamoate [hydrOXYzine 25 mg PO BID PRN 06/30/20 06/30/20 History PAMOATE] metroNIDAZOLE [Flagyl] 500 mg PO DIRECTED 06/30/20 06/30/20 History traZODone HCL 300 mg PO HS PRN 06/30/20 06/30/20 History Allergies Allergy/AdvReac Type Severity Reaction Status Date / Time adhesive tape Allergy Itching Verified 06/30/20 21:36 aripiprazole [From Abilify] Allergy Swelling Verified 06/30/20 21:36 OF THROAT guaifenesin [From Mucinex] Allergy Anaphylaxis Verified 06/30/20 21:36 haloperidol [From Haldol] Allergy Swelling Verified 06/30/20 21:36 OF THROAT latex Allergy Swelling/it Verified 06/30/20 21:36 armand tramadol Allergy Swelling Verified 06/30/20 21:36 OF THROAT Physical Examination - Vital Signs Vital Signs: Vital Signs Temp Pulse Pulse Resp BP BP Pulse Ox 07/01/20 07:15 98.1 F 64 18 98/59 96 07/01/20 04:53 97.6 F 73 18 115/73 98 07/01/20 02:53 97.5 F L 75 18 115/73 96 07/01/20 02:00 97.6 F 73 18 110/75 96 07/01/20 00:53 97.4 F L 67 18 117/88 99 07/01/20 00:35 97.4 F L 67 18 117/58 99 07/01/20 00:00 98.8 F 91 20 138/65 97 06/30/20 22:00 91 20 139/75 97 06/30/20 21:00 91 20 97 06/30/20 19:34 98.6 F 91 20 131/77 97 Intake and Output 06/30/20 07/01/20 07/01/20 22:59 06:59 14:59 Other: Voiding Method Toilet # Voids 2 Weight 80.4 kg 86.183 kg GENERAL: The patient is lying in bed and is in moderate acute distress. CHEST: The heart rate is regular rate rhythm. No murmurs to auscultation. No carotid bruit bilaterally. LUNG: Clear to auscultation bilaterally no wheezing noted throughout. Not labored breathing. ABDOMEN/GI: Bowel sounds present in all 4 quadrants. No tenderness to palpation throughout. NEUROLOGICAL: Higher mental function: The patient is awake, alert, oriented to self, place and time. Patient is following commands. No aphasia and no neglect. Cranial nerves: The pupils are round, equal and reactive to light and accommodation. Visual guerrier are full to confrontation throughout. Extraocular movement is intact no nystagmus is noted. Facial sensation is normal to touch throughout (at times she felt it was decreased sporadically in different spots but with multiple repeated it was normal). The facial strength is normal throughout. Hearing is normal bilaterally to hand rub. Tongue is midline and moved [id number] without any difficulty. No dysarthria is noted. Shoulder shrug is limited over the right because of pain. While left is normal. Motor: Gait is deferred because of pain. The strength is able to have 4/5 over the right distal hand but entire right upper extremity is limited because of pain. The right lower extremity was able to lift above gravity but again limit ed because of pain. The left is 5 over 5 throughout. Normal tone and bulk. Cerebellum: Normal finger to nose bilaterally. Sensation: Sensation is normal to touch throughout (at times she felt it was decreased sporadically in different spots but with multiple repeated it was normal). Reflexes (right/left): 2+ throughout except patellar are 3+ bilaterally. Plantars are downgoing bilaterally. Results Sodium is 135 which is minimally low. Coagulation study: PT of 9.7, INR 0.9 and PTT of 22.3. Che virus PCR is nondetected Urinalysis is negative for urinary tract infection. - Laboratory Findings CBC and BMP: 06/30/20 20:16 06/30/20 20:16 Abnormal Lab Findings: Abnormal Labs 06/30/20 07/01/20 20:16 04:30 Sodium 135 L Creatinine 1.07 H Glucose 100 H Triglycerides 166 H Cholesterol 211 H LDL Cholesterol, Calc 133 H Assessment and Plan Assessment: This is a 54-year-old woman with medical history of hyperlipidemia, hypothyroidism, DVT, hepatitis C, sleep apnea that presented emergency department on 06/30/2020 for a transient episode of slurred speech. She's been having right arm pain as well as right medial thigh pain for the last 2 weeks to arm is worse in the thigh as well as chronic neck pain that radiates down as well as chronic lower back pain. He is been complaining of intermittent sensory loss in the hands and feet but she said that it's been going on for a while but may be worse lately ?Transient episode of dysarthria seems possibly transient ischemic attack (per patient she was not sure if she slurred or not but her sister felt that way) Two-week history of right arm pain and right thigh pain with chronic neck pain as well as lower back pain one of the consideration is a little radiculopathic/plexopathy/mononeuritis multiplex Chronic history of polysubstance use and the patient's been in the remission for 3 years Chronic heavy alcohol use and been sober for the last 1 year Dyslipidemia Hypothyroidism History of sleep apnea History of hepatitis C History of DVT from IV drug use in the past (not on anticoagulation). Plan: CT of the head is reported as negative unenhanced head CT scan. CT angiography of the head and neck is reported as negative for both. Lipid panel: Triglyceride 166, triglyceride of 211, LDL is 133, HDL is 45. Patient is on aspirin 325 mg daily. I lowered the aspirin from 325 to 81 mg. I started the patient on Lipitor 10 mg (for now since has arm pain and leg pain. If CPK is normal then increase lipitor to 40mg qhs). The goal strokes of LDL less than 70. I ordered MRI of the brain and MRI Cervical spine Ordered TSH, hemoglobin A1c (to rule out diabetes that can cause polyneuropathy or polyradiculopathy), Vitamin B12 level, b6, folate level. Ordered Hepatitis B and C panel 2-D echo was ordered by the ED and is pending PT, OT and [employer] team are consulted. Per speech therapy team "Pt exhibited a mild lateral lisp with distorted /s, sh/ phonemes. Performance was inconsistent at times with pt intermittently exhibiting normal articulatory precision. Abnormal jaw posturing was also observed with pt inconsistently exhibiting an underbite". Continue every 4 hour neuro checks Placed the patient on continuous cardiac monitoring. Place patient on thiamine 100mg daily. The patient needs EMG with nerve conduction study as an outpatient since we don't have one now facility. Recommend getting it within 1-2 weeks as outpatient. I consulted orthopedic team since patient has chronic neck pain and lower back pain and was told she needed surgery of lower back since missing a disc. The plan was discussed with the patient as well as the patient's nurse. Thank you for the consultation. Sabino Baez M.D. Neuro-hospitalist Time with Patient: Greater than 30
--- NOTE | 2020-07-01 12:29 | ECHOF ---
Referral Reason:Thrombus MEASUREMENTS -------- HEIGHT: 162.6 cm WEIGHT: 86.2 kg BP: IVSd: 1.1 cm (0.6 - 1.1) LVIDd: 3.9 cm (3.9 - 5.3) LVPWd: 1.4 cm (0.6 - 1.1) IVSs: 1.7 cm LVIDs: 2.4 cm LVPWs: 1.8 cm LAESV Index (A-L): 29.92 ml/m Ao Diam: 3.1 cm (2.0 - 3.7) AV Cusp: 1.7 cm (1.5 - 2.6) MV EXCURSION: 11.800 mm (> 18.000) MV EF SLOPE: 127 mm/s (70 - 150) EPSS: 0.8 cm MV E Billy: 0.76 m/s MV DecT: 213 ms MV A Billy: 0.62 m/s MV E/A Ratio: 1.22 AV maxP.16 mmHg AV meanP.79 mmHg RAP: 5.00 mmHg RVSP: 26.80 mmHg FINDINGS -------- This was a technically good study. The left ventricular size is normal. There is mild concentric left ventricular hypertrophy. Overa ll left ventricular systolic function is normal with, an EF between 55 - 60 %. The diastolic fillin g pattern is normal for the age of the patient 9.34. The right ventricle is normal in size. LA is midly dilated 29-33ml/m2. The right atrial size is normal. Interatrial and interventricular septum intact. Aortic valve is trileaflet and is mildly thickened. There is mild aortic valve sclerosis. Peak/me an gradient across the Aortic Valve is 12.16mmHg / 6.79mmHg. The mitral valve is normal. Mild mitral regurgitation is present. The tricuspid valve appears structurally normal. Mild tricuspid regurgitation present. Right vent ricular systolic pressure is normal at < 35 mmHg. There is no pulmonic regurgitation present. The aortic root size is normal. Normal inferior vena cava with normal inspiratory collapse consistent with estimated right atrial pre ssure of 5 mmHg. There is no pericardial effusion. CONCLUSIONS -------- 1. The left ventricular size is normal. 2. There is mild concentric left ventricular hypertrophy. 3. Overall left ventricular systolic function is normal with, an EF between 55 - 60 %. 4. The diastolic filling pattern is normal for the age of the patient 9.34 5. LA is midly dilated 29-33ml/m2. 6. Aortic valve is trileaflet and is mildly thickened. 7. There is mild aortic valve sclerosis. 8. Peak/mean gradient across the Aortic Valve is 12.16mmHg / 6.79mmHg. 9. Mild mitral regurgitation is present. 10. Mild tricuspid regurgitation present. 11. There is no pericardial effusion. WAREHOUSE ORDER SELECTOR: Mira Bruno RDCS
--- NOTE | 2020-07-01 16:59 | MR ---
EXAMINATION TYPE: MR brain wo con DATE OF EXAM: 07/01/2020 COMPARISON: CT brain from yesterday HISTORY: Acute onset neuro deficit, slurred speech. TECHNIQUE: Multiplanar, multisequence imaging of the brain and brainstem is performed without IV cont rast. FINDINGS: Exam noted suboptimal as due to claustrophobia, patient could not continue for complete im aging sequence. Diffusion weighted images demonstrate no evidence of a recent infarct or other diffusion abnormality. There is no extraaxial fluid collection or significant white matter signal abnormality. The ventricu lar system and cisternal spaces are normal in size and appearance. The brain volume is age appropria te. Midline structures demonstrate normal morphology. The craniocervical junction appears within normal limits. Normal vascular flow voids are present. The visualized sinuses are clear and the globes are i ntact. IMPRESSION: No MRI evidence for a recent infarct. Suboptimal otherwise unremarkable study.
[2020-07-01] MEDS ORDERED: PRAZOSIN 1 MG CAP PO SCH (21:00)
[2020-07-01] MEDS ORDERED: ATORVASTATIN 10 MG TAB PO SCH (21:00)
[2020-07-01 21:39] LABS: Hemoglobin A1C 4.8 % (4.0-6.0)
--- NOTE | 2020-07-01 23:47 | P.HPIM ---
History of Present Illness H&P Date: 07/01/20 Chief Complaint: weakness Qi Pena is a 54-year-old woman with PMH of alcoholism, IV drug use, hepatitis C, DVT who presented to the ED complaining of slurred speech and R sided paresthesia. She states that over the past few weeks she has been having RUE pain as well as decreased sensation along the entire RUE and RLE. Yesterday pt was with her sister and noticed she seemed to be slurring her speech. Pt reports a history of chronic neck and back pain and has not regularly followed with a physician. On presentation vitals stable, CT and CTA neck wnl, labs unremarkable. Review of Systems All systems: negative Constitutional: Reports weakness, Denies chills, Denies fever Eyes: denies blurred vision, denies pain Ears, nose, mouth and throat: Denies headache, Denies sore throat Cardiovascular: Denies chest pain, Denies shortness of breath Respiratory: Denies cough Gastrointestinal: Denies abdominal pain, Denies diarrhea, Denies nausea, Denies vomiting Genitourinary: Denies dysuria, Denies hematuria Musculoskeletal: Denies myalgias Integumentary: Denies pruritus, Denies rash Neurological: Reports change in speech, Reports numbness, Reports weakness Psychiatric: Denies anxiety, Denies depression Endocrine: Denies fatigue, Denies weight change Past Medical History Past Medical History: Asthma, COPD, Deep Vein Thrombosis (DVT), GERD/Reflux, Hearing Disorder / Deafness, Hyperlipidemia, Liver Disease, Osteoarthritis (OA), Pneumonia, Sleep Apnea/CPAP/BIPAP, Thyroid Disorder Additional Past Medical History / Comment(s): hx BLOOD CLOT LEFT ARM, GRAVES D ISEASE, no cpap used, IBS, diff swallowing, hx hepatitis C-tx 2018, History of Any Multi-Drug Resistant Organisms: MRSA Date of last positivie culture/infection: 2017 MDRO Source:: UNDER THE RIGHT BREAST Past Surgical History: Breast Surgery, Cholecystectomy, Orthopedic Surgery, Tubal Ligation Additional Past Surgical History / Comment(s): RIGHT BREAST SURGERY X2(cyst,abs cess), mult lipoma removed from RIGHT SHOULDER, THYROIDECTOMY, lipoma x 2 removed rt arm Past Anesthesia/Blood Transfusion Reactions: No Reported Reaction Past Psychological History: Anxiety, Bipolar, Depression, PTSD, Schizoaffective Disorder Smoking Status: Current every day smoker Past Alcohol Use History: None Reported Additional Past Alcohol Use History / Comment(s): STARTED SMOKING AT AGE 5 QUIT ON AND OFF (TRYING TO QUIT NOW) 1/2 PPD. HISTORY OF ALCOHOL ABUSE Past Drug Use History: None Reported Additional Drug Use History / Comment(s): LAST DRUGS TAKEN DEC 2017. USES HEMP OIL(fuse) NOW FOR DEPRESSION - Past Family History Mother Family Medical History: Cancer Father Family Medical History: Cancer Medications and Allergies Home Medications Medication Instructions Recorded Confirmed Type Albuterol Inhaler [Ventolin Hfa 2 puff INHALATION RT-Q4H PRN 11/13/19 06/30/20 History Inhaler] Omeprazole 20 mg PO DAILY 11/13/19 06/30/20 History Levothyroxine Sodium [Synthroid] 150 mcg PO DAILY 06/30/20 06/30/20 History Lurasidone HCl [Latuda] 120 mg PO HS 06/30/20 06/30/20 History Prazosin HCl 1 mg PO HS 06/30/20 06/30/20 History Sulfamethox-Tmp 800-160Mg [Bactrim 1 tab PO BID 06/30/20 06/30/20 History DS 800-160 mg] Varenicline [Chantix Continuing 1 mg PO BID 06/30/20 06/30/20 History Pack] hydrOXYzine pamoate [hydrOXYzine 25 mg PO BID PRN 06/30/20 06/30/20 History PAMOATE] metroNIDAZOLE [Flagyl] 500 mg PO DIRECTED 06/30/20 06/30/20 History traZODone HCL 300 mg PO HS PRN 06/30/20 06/30/20 History Allergies Allergy/AdvReac Type Severity Reaction Status Date / Time adhesive tape Allergy Itching Verified 06/30/20 21:36 aripiprazole [From Abilify] Allergy Swelling Verified 06/30/20 21:36 OF THROAT guaifenesin [From Mucinex] Allergy Anaphylaxis Verified 06/30/20 21:36 haloperidol [From Haldol] Allergy Swelling Verified 06/30/20 21:36 OF THROAT latex Allergy Swelling/it Verified 06/30/20 21:36 armand tramadol Allergy Swelling Verified 06/30/20 21:36 OF THROAT Physical Exam Vitals: Vital Signs Temp Pulse Pulse Resp BP BP BP 07/01/20 19:42 98.2 F 86 16 97/58 07/01/20 13:58 97.7 F 75 18 101/63 07/01/20 13:37 64 18 07/01/20 08:00 64 18 07/01/20 07:15 98.1 F 64 18 98/59 07/01/20 04:53 97.6 F 73 18 115/73 07/01/20 02:53 97.5 F L 75 18 115/73 07/01/20 02:00 97.6 F 73 18 110/75 07/01/20 00:53 97.4 F L 67 18 117/88 07/01/20 00:35 97.4 F L 67 18 117/58 07/01/20 00:00 98.8 F 91 20 138/65 Pulse Ox 07/01/20 19:42 95 07/01/20 13:58 96 07/01/20 13:37 07/01/20 08:00 07/01/20 07:15 96 07/01/20 04:53 98 07/01/20 02:53 96 07/01/20 02:00 96 07/01/20 00:53 99 07/01/20 00:35 99 07/01/20 00:00 97 Intake and Output 07/01/20 07/01/20 07/02/20 14:59 22:59 06:59 Intake Total 300 300 Balance 300 300 Intake: Oral 300 300 Other: Voiding Method Toilet # Voids 2 General: well nourished, well developed, NAD. Vitals reviewed Eyes: PERRL, EOMI, conjunctiva normal HENT: normocephalic, mucus membranes moist Neck: supple, no JVD Lungs: normal respiratory effort, no wheezes or rales CV: Regular rate and rhythm, no murmur. Peripheral pulses 2+ Abdomen: soft, nondistended, no organomegaly Lymph: no cervical or axillary LAD Skin: warm and dry. Neuro: A&Ox3, normal mood and affect. CN II-XII intact. RUE and RLE with decreased sensation Results CBC & Chem 7: 06/30/20 20:16 06/30/20 20:16 Labs: Abnormal Lab Results - Last 24 Hours (Table) 07/01/20 07/01/20 Range/Units 04:30 11:42 Creatine Kinase 156 H (30-135) U/L Triglycerides 166 H (<150) mg/dL Cholesterol 211 H (<200) mg/dL LDL Cholesterol, Calc 133 H (0-99) mg/dL Thrombosis Risk Factor Assmnt - Choose All That Apply Each Factor Represents 1 point: Age 41-60 years, Obesity (BMI >25) Other Risk Factors: No Other congenital or acquired thrombophilia - If yes, enter type in comment: No Thrombosis Risk Factor Assessment Total Risk Factor Score: 2 Thrombosis Risk Factor Assessment Level: Low Risk Assessment and Plan (1) Slurred speech Current Visit: Yes Status: Acute Code(s): R47.81 - SLURRED SPEECH SNOMED Code(s): 036801204 (2) Right sided numbness Current Visit: Yes Status: Acute Code(s): R20.0 - ANESTHESIA OF SKIN SNOMED Code(s): 90874105 (3) TIA (transient ischemic attack) Current Visit: Yes Status: Acute Code(s): G45.9 - TRANSIENT CEREBRAL ISCHEMIC ATTACK, UNSPECIFIED SNOMED Code(s): 442556134 Plan: 1. Slurred speech and R sided numbness. Possibly secondary to cervical strain vs TIA. Slurred speech now resolved. Neurology consulted, add lipitor. MRI ordered 2. Tobacco abuse 3. Hypothyroidism. Continue synthroid 4. PTSD. Continue prazosin qhs
[2020-07-02 04:04] LABS: Hepatitis B Core IgM Non-Reactive (Non-Reactive); Hepatitis B Surface AB- Quant >1000.0 mIU/mL; Hepatitis B Surface Antibody Reactive (Non-Reactive); Hepatitis B Surface Antigen Non-Reactive (Non-Reactive); Hepatitis C IgG Antibody Reactive (Non-Reactive)
[2020-07-02] MEDS: SODIUM CHLORIDE 0.9% 1,000 ML IV SCH (04:28)
[2020-07-02] MEDS: LEVOTHYROXINE 75 MCG TAB PO SCH (06:03)
[2020-07-02 08:32] VITALS: BP 101/69; PULSE 69; RESP 18; TEMP 97.7
[2020-07-02] MEDS: PANTOPRAZOLE 40 MG TABLET PO SCH (08:36)
[2020-07-02] MEDS ORDERED: THIAMINE 100 MG TAB PO SCH (09:00)
[2020-07-02] MEDS ORDERED: ASPIRIN 81 MG PO SCH (09:00)
--- NOTE | 2020-07-02 10:24 | P.CNOR ---
History of Present Illness - [facility] Consult date: 07/02/20 Consult reason: neck pain, other History of present illness: Patient is seen and examined at bedside. She 54-year-old pleasant female who presented in regards to possibility of transient ischemic attack when she felt she had significant weakness at her right upper extremity right lower extremity and changes in her speech. Things have been resolving and she feels she is making progress. She does have history of chronic neck and low back pain. She has a chronic history of some radicular symptoms at her right upper extremity as well as her right lower extremity. She says that all those together and it ch anges frequently for her. She has been having these symptoms for the past several years. She's been on disability since 2014 she says due to mental issues as well as pain in her lower back and issues in her bilateral hips. She says she is walker dependent for the past several years. She has been having increasing pain at her right upper extremity over the past several years with numbness into her middle 3 fingers. She says that has been giving her pain for years but has somewhat worsened over the past 6 months or so. She does not have acute change without pain. He denies any chest pain or shortness of breath. She denies any new weakness today. She feels overall her symptoms have improved since been in the hospital. She denies any specific treatment for her neck and low back. She says that a few years ago she was told that she was missing a disc at her lower back and was considering surgical intervention. Review of Systems Generalized complaints of pain at her neck and right upper extremity right lower extremity and into her left lower extremity without specific pattern. She denies any specific neck pain or abdominal pain. She denies any chest pain or shortness of breath. Past Medical History Past Medical History: Asthma, COPD, Deep Vein Thrombosis (DVT), GERD/Reflux, Hearing Disorder / Deafness, Hyperlipidemia, Liver Disease, Osteoarthritis (OA), Pneumonia, Sleep Apnea/CPAP/BIPAP, Thyroid Disorder Additional Past Medical History / Comment(s): hx BLOOD CLOT LEFT ARM, GRAVES DISEASE, no cpap used, IBS, diff swallowing, hx hepatitis C-tx 2018, History of Any Multi-Drug Resistant Organisms: MRSA Year Discovered:: 2017 MDRO Source:: UNDER THE RIGHT BREAST Past Surgical History: Breast Surgery, Cholecystectomy, Orthopedic Surgery, Tubal Ligation Additional Past Surgical History / Comment(s): RIGHT BREAST SURGERY X2(cyst,abscess), mult lipoma removed from RIGHT SHOULDER, THYROIDECTOMY, lipoma x 2 removed rt arm Past Anesthesia/Blood Transfusion Reactions: No Reported Reaction Past Psychological History: Anxiety, Bipolar, Depression, PTSD, Schizoaffective Disorder Smoking Status: Current every day smoker Past Alcohol Use History: None Reported Additional Past Alcohol Use History / Comment(s): STARTED SMOKING AT AGE 5 QUIT ON AND OFF (TRYING TO QUIT NOW) 1/2 PPD. HISTORY OF ALCOHOL ABUSE Past Drug Use History: None Reported Additional Drug Use History / Comment(s): LAST DRUGS TAKEN DEC 2017. USES HEMP OIL(fuse) NOW FOR DEPRESSION - Past Family History Mother Family Medical History: Cancer Father Family Medical History: Cancer Medications and Allergies Home Medications Medication Instructions Recorded Confirmed Type Albuterol Inhaler [Ventolin Hfa 2 puff INHALATION RT-Q4H PRN 11/13/19 06/30/20 History Inhaler] Omeprazole 20 mg PO DAILY 11/13/19 06/30/20 History Levothyroxine Sodium [Synthroid] 150 mcg PO DAILY 06/30/20 06/30/20 History Lurasidone HCl [Latuda] 120 mg PO HS 06/30/20 06/30/20 History Prazosin HCl 1 mg PO HS 06/30/20 06/30/20 History Sulfamethox-Tmp 800-160Mg [Bactrim 1 tab PO BID 06/30/20 06/30/20 History DS 800-160 mg] Varenicline [Chantix Continuing 1 mg PO BID 06/30/20 06/30/20 History Pack] hydrOXYzine pamoate [hydrOXYzine 25 mg PO BID PRN 06/30/20 06/30/20 History PAMOATE] metroNIDAZOLE [Flagyl] 500 mg PO DIRECTED 06/30/20 06/30/20 History traZODone HCL 300 mg PO HS PRN 06/30/20 06/30/20 History Aspirin 81 mg PO DAILY chew 07/02/20 Rx Thiamine [Vitamin B-1] 100 mg PO DAILY tab 07/02/20 Rx Allergies Allergy/AdvReac Type Severity Reaction Status Date / Time adhesive tape Allergy Itching Verified 06/30/20 21:36 aripiprazole [From Abilify] Allergy Swelling Verified 06/30/20 21:36 OF THROAT guaifenesin [From Mucinex] Allergy Anaphylaxis Verified 06/30/20 21:36 haloperidol [From Haldol] Allergy Swelling Verified 06/30/20 21:36 OF THROAT latex Allergy Swelling/it Verified 06/30/20 21:36 armand tramadol Allergy Swelling Verified 06/30/20 21:36 OF THROAT Physical Examination Osteopathic Statement: *. No significant issues noted on an osteopathic structural exam other than those noted in the History and Physical/Consult. - Wrist & Hand right Symptoms: wrist stiffness (At her right upper extremity she is able to do motion but does so swollen slowly. She feels as though she has tight clamping around her biceps with motion. She has sustained flexion and extension at her elbow wrist hand and fingers. Negative Justyn's. No hyperreflexia.) - L Spine: dermatomal strength & reflexes bilateral Strength: hip flexion: 5/5 (Lower extremities have sustained dorsal flexion plantar flexion and EHL intact no clonus) Results - Labs Labs: Abnormal Lab Results - Last 24 Hours (Table) 07/01/20 07/01/20 Range/Units 11:42 11:42 Creatine Kinase 156 H (30-135) U/L Hep Bs Antibody Reactive A (Non-Reactive) Hep C IgG Ab Reactive A (Non-Reactive) H & H 06/30/20 Range/Units 20:16 Hgb 13.2 (11.4-16.0) gm/dL Hct 37.9 (34.0-46.0) % Coagulation 06/30/20 Range/Units 20:16 INR 0.9 (<1.2) Result Diagrams: 06/30/20 20:16 06/30/20 20:16 Assessment and Plan Assessment: Possible transient ischemic attack continue workup with neurology and medicine with some resolution of symptoms Chronic neck pain and low back pain Chronic right upper extremity radicular symptoms without specific progressive loss Chronic right lower extremity radicular symptoms Plan: Possible transient ischemic attack continue workup with neurology and medicine with some resolution of symptoms Chronic neck pain and low back pain Chronic right upper extremity radicular symptoms without specific progressive loss Chronic right lower extremity radicular symptoms The patient is continuing her workup in regards to her possible TIA. I think her workup has been appropriately thus far and she should continue with that treatment as well as therapy for mobilization. The patient has chronic cervical and lumbar issues with some radicular symptoms at her upper and lower extremities. I do not think that she is having acute neurologic loss from her cervical or lumbar spine at this point. It is okay for her to mobilize. She was unable to tolerate the full MRI yesterday and was not able to complete her cervical MRI. She did have a brain MRI yesterday which did not show evidence of bleed. From a spine standpoint I think it is okay for the patient to be discharged home when she is cleared with medicine and neurology. I can follow her up outpatient where she will may need further workup and treatment with possible interventional pain management. I think that she should continue with her therapy and is okay for discharge home from a orthopedic spine standpoint.
[2020-07-02 10:49] LABS: African American GFR (CKD) 82 (>60 ml/min/1.73 sqM); Anion Gap 8 mmol/L; Blood Urea Nitrogen 13 mg/dL (7-17); Calcium 8.5 mg/dL (8.4-10.2); Carbon Dioxide 22 mmol/L (22-30); Chloride 108 mmol/L (98-107); Glucose 103 mg/dL (74-99); Non-African American GFR(CKD) 71 (>60 ml/min/1.73 sqM); Potassium 4.2 mmol/L (3.5-5.1); Sodium 138 mmol/L (137-145)
--- NOTE | 2020-07-02 11:04 | P.PN ---
Subjective Progress Note Date: 07/02/20 The patient was seen at bedside and she states she had not had any further episodes of slurring the speech or denies any focal deficits. Regarding her pain in the right arm as well as that the right medial thigh she stated is it's the improving compared to yesterday and she feels much better. She continues to have some pain in the right arm but better than her initial presentation. She stated that she was able to walk to the bathroom on her own without any assistance. She denies any further neurological deficits. She stated that she would like to go home today. I spoke with the patient's sister via phone the since the patient requested and she stated that the patient had an episode of slurring the speech lasting 30 minutes and thats what presented to her to the hospital. MRI of the brain and cervical spine was attempted yesterday but patient is anxious and only had the MRI the brain and could tolerate MRI the cervical spine. She received 0.5 mg of Xanax by the primary team for the MRI. MRI the brain is reported as no MRI evidence for recent infarct. Suboptimal otherwise unremarkable study. Objective - Vital Signs Vital signs: Vital Signs Temp 97.7 F 07/02/20 07:00 Pulse 69 07/02/20 07:00 Resp 18 07/02/20 07:00 BP 101/69 07/02/20 07:00 Pulse Ox 97 07/02/20 07:00 Intake & Output 07/01/20 07/02/20 07/02/20 18:59 06:59 18:59 Intake Total 600 800 Balance 600 800 Intake: Intake, IV Titration 800 Amount Sodium Chloride 0.9% 1, 800 000 ml @ 100 mls/hr IV . Q10H SOLEDAD Rx#:[id number] Oral 600 Other: Voiding Method Toilet Toilet # Voids 2 1 - Labs CBC & Chem 7: 06/30/20 20:16 07/02/20 09:34 Labs: Abnormal Lab Results - Last 24 Hours (Table) 07/01/20 07/01/20 07/02/20 Range/Units 11:42 11:42 09:34 Chloride 108 H (98-107) mmol/L Glucose 103 H (74-99) mg/dL Creatine Kinase 156 H (30-135) U/L Hep Bs Antibody Reactive A (Non-Reactive) Hep C IgG Ab Reactive A (Non-Reactive) Assessment and Plan Assessment: This is a 54-year-old woman with medical history of hyperlipidemia, hypothyroidism, DVT, hepatitis C, sleep apnea that [facility] for a transient episode of slurred speech. She's been having right arm pain as well as right medial thigh pain for the last 2 weeks to arm is worse in the thigh as well as chronic neck pain that radiates down as well as chronic lower back pain. He is been complaining of intermittent sensory loss in the hands and feet but she said that it's been going on for a while but may be worse lately Transient episode of dysarthria seems possibly transient ischemic attack (per patient she was not sure if she slurred or not but her sister felt that way) Two-week history of right arm pain and right thigh pain with chronic neck pain as well as lower back pain one of the consideration is a little radiculopathic/plexopathy/?mononeuritis multiplex ---her pain today is improving compared to yesterday. Chronic history of polysubstance use and the patient's been in the remission for 3 years Chronic heavy alcohol use and been sober for the last 1 year Dyslipidemia Hypothyroidism History of sleep apnea History of hepatitis C History of DVT from IV drug use in the past (not on anticoagulation). Plan: CT of the head is reported as negative unenhanced head CT scan. CT angiography of the head and neck is reported as negative for both. Lipid panel: Triglyceride 166, triglyceride of 211, LDL is 133, HDL is 45. Continue Aspirin 81 mg daily and increased Lipitor to 20mg daily (one muscle pain is resolved can increase it to 40mg daily). The goal for LDL in strokes is less than 70. MRI of the brain and cervical spine was attempted yesterday but patient is a nxious and only had the MRI the brain and could tolerate MRI the cervical spine. She received 0.5 mg of Xanax by the primary team for the MRI. MRI the brain is reported as no MRI evidence for recent infarct. Suboptimal otherwise unremarkable study. Recommend MRI of the cervical as well as the lumbar as an outpatient (patient wants an open MRI). Vitamin B12 is 554 (normal) Hemoglobin A1c is 4.8 which is normal. Lipid panel as triglyceride of 166, cholesterol is 211, LDLs 133 and HDL is 45. The CK level is 156 which is minimally elevated the not that astonishing. Hepatitis: Hepatitis B surface is nonreactive, hepatitis B antibody is reactive, hepatitis B core IgM antibodies nonreactive. Hepatitis C IgG antibody is reactive. Pending Vitamin B6, folate level. 2-D echo: Mild concentric left ventricle hypertrophy. Ejection fraction of 55- 60%. Left it was mildly dilated that. PT, OT and [employer] HELPER team are consulted. Per speech therapy team "Pt exhibited a mild lateral lisp with distorted /s, sh/ phonemes. Performance was inconsistent at times with pt intermittently exhibiting normal articulatory precision. Abnormal jaw posturing was also observed with pt inconsistently exhibiting an underbite". Continue every 4 hour neuro checks Placed the patient on continuous cardiac monitoring. Continue thiamine 100mg daily. The patient needs EMG with nerve conduction study as an outpatient since we don't have one now facility. Recommend getting it within 1-2 weeks as outpatient. I consulted orthopedic team since patient has chronic neck pain and lower back pain and was told she needed surgery of lower back since missing a disc. From a neurological standpoint the patient is clear and to follow-up with a neurologist as outpatient within 1-2 weeks. The plan was discussed with the patient as well as the patient's nurse. Sabino Baez M.D. Neuro-hospitalist Time with Patient: Less than 30
[2020-07-02] MEDS ORDERED: ATORVASTATIN 20 MG TAB PO SCH (21:00)
--- NOTE | 2020-07-03 15:58 | P.DS ---
Providers Date of admission: 06/30/20 21:52 Expected date of discharge: 07/03/20 Attending physician: Junaid Domínguez MD Consults: 06/30/20 21:53 Consult Physician Routine Consulting Provider: Sabino Baez Consult Reason/Comments: TIA Do you want consulting provider notified?: Yes 07/01/20 11:07 Consult Physician Routine Consulting Provider: Joyce Miranda Consult Reason/Comments: back and neck pain Do you want consulting provider notified?: Yes Primary care physician: Corinne Guzmán [facility] Course: Final Diagnoses: Slurred speech and right-sided weakness, suspect secondary to cervical strain, possible TIA, in a patient with chronic neck, right arm and lower back pain, radiculopathy. Nicotine dependence Polysubstance abuse reports in remission 3 years Hepatitis C History of DVT from IV drug abuse, not on anticoagulation Hypothyroidism PTSD Hospital course:Qi Pena is a 54-year-old woman with PMH of alcoholism, IV drug use, hepatitis C, DVT who presented to the ED complaining of slurred speech and R sided paresthesia. She states that over the past few weeks she has been having RUE pain as well as decreased sensation along the entire RUE and RLE. Yesterday pt was with her sister and noticed she seemed to be slurring her speech. Pt reports a history of chronic neck and back pain and has not regularly followed with a physician. On presentation vitals stable, CT and CTA neck wnl, labs unremarkable. Evaluated by neurology and orthopedic surgery. Significant clinical improvement, slurred speech resolved. CT of the head is reported as negative un enhanced head CT scan.CT angiography of the head and neck is reported as negative for both.Lipid panel: Triglyceride 166, triglyceride of 211, LDL is 133, HDL is 45.MRI of the brain and cervical spine was attempted yesterday but patient is anxious and only had the MRI the brain and could not tolerate MRI the cervical spine. MRI the brain is reported as no MRI evidence for recent infarct. Suboptimal otherwise unremarkable study. Recommend MRI outpatient of cervical and lumbar spine and EMG with nerve conduction study. Further follow-up recommended outpatient with orthopedic spine/neurology.. There bowel consults for discharge. Patient will be discharged home today in stable condition with guarded prognosis. The impression and plan of care has been dictated as directed. : I performed a history and examination of this patient, discussed the same with the dictator. I agree with the dictator's note ,documented as a scribe. Any additional findings or plans will be noted. Patient Condition at Discharge: Stable Plan - Discharge Summary Discharge Rx Participant: No New Discharge Prescriptions: New Thiamine [Vitamin B-1] 100 mg PO DAILY tab Aspirin 81 mg PO DAILY chew Continue Omeprazole 20 mg PO DAILY Albuterol Inhaler [Ventolin Hfa Inhaler] 2 puff INHALATION RT-Q4H PRN PRN Reason: Shortness Of Breath traZODone HCL 300 mg PO HS PRN PRN Reason: SLEEP Sulfamethox-Tmp 800-160Mg [Bactrim DS 800-160 mg] 1 tab PO BID metroNIDAZOLE [Flagyl] 500 mg PO DIRECTED Prazosin HCl 1 mg PO HS Levothyroxine Sodium [Synthroid] 150 mcg PO DAILY hydrOXYzine pamoate [hydrOXYzine PAMOATE] 25 mg PO BID PRN PRN Reason: Anxiety Varenicline [Chantix Continuing Pack] 1 mg PO BID Lurasidone HCl [Latuda] 120 mg PO HS Discharge Medication List Albuterol Inhaler [Ventolin Hfa Inhaler] 2 puff INHALATION RT-Q4H PRN 11/13/19 [History] Omeprazole 20 mg PO DAILY 11/13/19 [History] Levothyroxine Sodium [Synthroid] 150 mcg PO DAILY 06/30/20 [History] Lurasidone HCl [Latuda] 120 mg PO HS 06/30/20 [History] Prazosin HCl 1 mg PO HS 06/30/20 [History] Sulfamethox-Tmp 800-160Mg [Bactrim DS 800-160 mg] 1 tab PO BID 06/30/20 [History] Varenicline [Chantix Continuing Pack] 1 mg PO BID 06/30/20 [History] hydrOXYzine pamoate [hydrOXYzine PAMOATE] 25 mg PO BID PRN 06/30/20 [History] metroNIDAZOLE [Flagyl] 500 mg PO DIRECTED 06/30/20 [History] traZODone HCL 300 mg PO HS PRN 06/30/20 [History] Aspirin 81 mg PO DAILY chew 07/02/20 [Rx] Thiamine [Vitamin B-1] 100 mg PO DAILY tab 07/02/20 [Rx] Follow up Appointment(s)/Referral(s): Joyce Miranda DO [Doctor of Osteopathic Medicine] - 1 Week Corinne Guzmán MD [Primary Care Provider] - 3 Days Lance Case MD [Medical Doctor] - 2 Weeks
== END 2020-07-02 11:50 ==
LOC: EC 19:23 → 6NMEDSUR 21:52
PROVIDERS: ADMIT Family Medicine; ATTEND Family Medicine
DX: R47.81 Slurred speech (principal); R53.1 Weakness; R20.2 Paresthesia of skin; R06.02 Shortness of breath; G89.29 Other chronic pain; M54.5 Low back pain; R47.1 Dysarthria and anarthria; M54.2 Cervicalgia; M79.601 Pain in right arm; M25.551 Pain in right hip; M25.552 Pain in left hip; M79.651 Pain in right thigh; M54.10 Radiculopathy, site unspecified; F43.10 Post-traumatic stress disorder, unspecified; F25.9 Schizoaffective disorder, unspecified; F31.9 Bipolar disorder, unspecified; E89.0 Postprocedural hypothyroidism; E78.5 Hyperlipidemia, unspecified; G47.30 Sleep apnea, unspecified; J44.9 Chronic obstructive pulmonary disease, unspecified; K21.9 Gastro-esophageal reflux disease without esophagitis; H91.90 Unspecified hearing loss, unspecified ear; M19.90 Unspecified osteoarthritis, unspecified site; E05.00 Thyrotoxicosis with diffuse goiter without thyrotoxic crisis or storm; F15.11 Other stimulant abuse, in remission; E66.9 Obesity, unspecified; Z68.32 Body mass index [BMI] 32.0-32.9, adult; R94.31 Abnormal electrocardiogram [ECG] [EKG]; Z86.718 Personal history of other venous thrombosis and embolism; Z86.19 Personal history of other infectious and parasitic diseases; Z87.01 Personal history of pneumonia (recurrent); Z86.14 Personal history of Methicillin resistant Staphylococcus aureus infection; Z90.49 Acquired absence of other specified parts of digestive tract; F17.210 Nicotine dependence, cigarettes, uncomplicated; Z79.899 Other long term (current) drug therapy; Z79.82 Long term (current) use of aspirin; Z79.890 Hormone replacement therapy; Z91.040 Latex allergy status; Z88.5 Allergy status to narcotic agent; Z88.8 Allergy status to other drugs, medicaments and biological substances; Z91.048 Other nonmedicinal substance allergy status; Z80.9 Family history of malignant neoplasm, unspecified; Z20.822 Contact with and (suspected) exposure to COVID-19
CPT/HCPCS: 96361 ×2; 96374; 99285; 36415; 93005; 93306; 97162; 97165; 92610; 92522; 84207; 86803; 86705; 82747; 80061; 87522; 80053; 80048; 82607; 82550; 84484; 85025; 85610; 85730; 86706; 87340; 81003; 83036; 87635; 71046; 70496; 70450; 70498; 70551; G0378 ×3; J1885; Q9967

== ENCOUNTER 2020-08-26 23:22 | Inpatient (IN) | payer MEDICAID, OTHER ==
[2020-08-26] MEDS ORDERED: SODIUM CHLORIDE 0.9% 1,000 ML IV STA (23:52)
[2020-08-26] MEDS ORDERED: LORazepam 2 MG/ML INJ IV STA (23:53)
--- NOTE | 2020-08-26 23:53 | ED ---
Psych HPI - General Chief Complaint: Psychiatric Symptoms Stated Complaint: Mental health Time Seen by Provider: 08/26/20 23:31 Source: patient, RN notes reviewed, old records reviewed Mode of arrival: wheelchair Limitations: no limitations - History of Present Illness MD Complaint: suicidal ideation, feels depressed, other (Chest pain) -: unknown Associated Psychiatric Symptoms: depression, suicidal ideation, racing thoughts Quality: constant Improves With: none Worsens With: none Context: not taking psychiatric medications Associated Symptoms: denies other symptoms Treatments Prior to Arrival: placed on mental health hold If Self Harm: admits thoughts of self harm - Related Data Home Medications Medication Instructions Recorded Confirmed Albuterol Inhaler [Ventolin Hfa 2 puff INHALATION RT-Q4H PRN 11/13/19 06/30/20 Inhaler] Omeprazole 20 mg PO DAILY 11/13/19 06/30/20 Levothyroxine Sodium [Synthroid] 150 mcg PO DAILY 06/30/20 06/30/20 Lurasidone HCl [Latuda] 120 mg PO HS 06/30/20 06/30/20 Prazosin HCl 1 mg PO HS 06/30/20 06/30/20 Sulfamethox-Tmp 800-160Mg [Bactrim 1 tab PO BID 06/30/20 06/30/20 DS 800-160 mg] Varenicline [Chantix Continuing 1 mg PO BID 06/30/20 06/30/20 Pack] hydrOXYzine pamoate [hydrOXYzine 25 mg PO BID PRN 06/30/20 06/30/20 PAMOATE] metroNIDAZOLE [Flagyl] 500 mg PO DIRECTED 06/30/20 06/30/20 traZODone HCL 300 mg PO HS PRN 06/30/20 06/30/20 Previous Rx's Medication Instructions Recorded Aspirin 81 mg PO DAILY chew 07/02/20 Thiamine [Vitamin B-1] 100 mg PO DAILY tab 07/02/20 Allergies Allergy/AdvReac Type Severity Reaction Status Date / Time adhesive tape Allergy Itching Verified 08/26/20 23:28 aripiprazole [From Abilify] Allergy Swelling Verified 08/26/20 23:28 OF THROAT guaifenesin [From Mucinex] Allergy Anaphylaxis Verified 08/26/20 23:28 haloperidol [From Haldol] Allergy Swelling Verified 08/26/20 23:28 OF THROAT latex Allergy Swelling/it Verified 08/26/20 23:28 armand tramadol Allergy Swelling Verified 08/26/20 23:28 OF THROAT Review of Systems ROS Statement: Those systems with pertinent positive or pertinent negative responses have been documented in the HPI. ROS Other: All systems not noted in ROS Statement are negative. Past Medical History Past Medical History: Asthma, Heart Failure, COPD, Deep Vein Thrombosis (DVT), GERD/Reflux, Hearing Disorder / Deafness, Hyperlipidemia, Liver Disease, Osteoarthritis (OA), Pneumonia, Sleep Apnea/CPAP/BIPAP, Thyroid Disorder Additional Past Medical History / Comment(s): hx BLOOD CLOT LEFT ARM, GRAVES DISEASE, no cpap used, IBS, diff swallowing, hx hepatitis C-tx 2018, History of Any Multi-Drug Resistant Organisms: MRSA Date of last positivie culture/infection: 2017 MDRO Source:: UNDER THE RIGHT BREAST Past Surgical History: Breast Surgery, Cholecystectomy, Orthopedic Surgery, Tubal Ligation Additional Past Surgical History / Comment(s): RIGHT BREAST SURGERY X2(cyst,abscess), mult lipoma removed from RIGHT SHOULDER, THYROIDECTOMY, lipoma x 2 removed rt arm Past Anesthesia/Blood Transfusion Reactions: No Reported Reaction Past Psychological History: Anxiety, Bipolar, Depression, PTSD, Schizoaffective Disorder Smoking Status: Current every day smoker Past Alcohol Use History: None Reported Past Drug Use History: Marijuana - Past Family History Mother Family Medical History: Cancer Father Family Medical History: Cancer General Exam Limitations: no limitations General appearance: alert, in no apparent distress Head exam: Present: atraumatic, normocephalic, normal inspection Eye exam: Present: normal appearance, PERRL, EOMI. Absent: scleral icterus, conjunctival injection, periorbital swelling ENT exam: Present: normal exam, mucous membranes moist Neck exam: Present: normal inspection. Absent: tenderness, meningismus, lymphadenopathy Respiratory exam: Present: normal lung sounds bilaterally. Absent: respiratory distress, wheezes, rales, rhonchi, stridor Cardiovascular Exam: Present: normal rhythm, tachycardia, normal heart sounds. Absent: systolic murmur, diastolic murmur, rubs, gallop, clicks GI/Abdominal exam: Present: soft, normal bowel sounds. Absent: distended, tenderness, guarding, rebound, rigid Extremities exam: Present: normal inspection, full ROM, normal capillary refill. Absent: tenderness, pedal edema, joint swelling, calf tenderness Back exam: Present: normal inspection Neurological exam: Present: alert, oriented X3, CN II-XII intact Psychiatric exam: Present: normal affect, normal mood Skin exam: Present: warm, dry, intact, normal color. Absent: rash Course Vital Signs 08/26/20 08/27/20 08/27/20 23:24 00:06 01:59 Temperature 98.6 F Pulse Rate 116 H 104 H 99 Respiratory 20 18 20 Rate Blood Pressure 153/79 160/80 O2 Sat by Pulse 98 99 98 Oximetry - Reevaluation(s) Reevaluation #1: 08/27/20 02:30 Medical record is reviewed Reevaluation #2: 08/27/20 02:30 Medical clear for psychiatric evaluation Medical Decision Making - Lab Data Result diagrams: 08/26/20 00:09 08/26/20 00:09 Lab Results 08/26/20 08/26/20 08/26/20 Range/Units 00:09 00:09 00:09 WBC 9.7 (3.8-10.6) k/uL RBC 3.93 (3.80-5.40) m/uL Hgb 12.5 (11.4-16.0) gm/dL Hct 37.7 (34.0-46.0) % MCV 95.7 (80.0-100.0) fL MCH 31.9 (25.0-35.0) pg MCHC 33.3 (31.0-37.0) g/dL RDW 13.5 (11.5-15.5) % Plt Count 309 (150-450) k/uL MPV 6.9 Neutrophils % 78 % Lymphocytes % 17 % Monocytes % 4 % Eosinophils % 0 % Basophils % 0 % Neutrophils # 7.6 (1.3-7.7) k/uL Lymphocytes # 1.6 (1.0-4.8) k/uL Monocytes # 0.4 (0-1.0) k/uL Eosinophils # 0.0 (0-0.7) k/uL Basophils # 0.0 (0-0.2) k/uL PT 9.6 (9.0-12.0) sec INR 0.9 (<1.2) APTT 22.4 (22.0-30.0) sec D-Dimer 0.40 (<0.60) mg/L FEU Sodium 138 (137-145) mmol/L Potassium 4.8 (3.5-5.1) mmol/L Chloride 106 (98-107) mmol/L Carbon Dioxide 23 (22-30) mmol/L Anion Gap 9 mmol/L BUN 18 H (7-17) mg/dL Creatinine 0.97 (0.52-1.04) mg/dL Est GFR (CKD-EPI)AfAm 77 (>60 ml/min/1.73 sqM) Est GFR (CKD-EPI)NonAf 67 (>60 ml/min/1.73 sqM) Glucose 129 H (74-99) mg/dL Calcium 10.0 (8.4-10.2) mg/dL Phosphorus 3.5 (2.5-4.5) mg/dL Magnesium 2.3 (1.6-2.3) mg/dL Total Bilirubin 0.3 (0.2-1.3) mg/dL AST 28 (14-36) U/L ALT 24 (4-34) U/L Alkaline Phosphatase 62 (38-126) U/L Troponin I (0.000-0.034) ng/mL NT-Pro-B Natriuret Pep pg/mL Total Protein 8.7 H (6.3-8.2) g/dL Albumin 5.0 (3.5-5.0) g/dL TSH 0.388 L (0.465-4.680) mIU/L Urine Color Urine Appearance (Clear) Urine pH (5.0-8.0) Ur Specific [place] (1.001-1.035) Urine Protein (Negative) Urine Glucose (UA) (Negative) Urine Ketones (Negative) Urine Blood (Negative) Urine Nitrite (Negative) Urine Bilirubin (Negative) Urine Urobilinogen (<2.0) mg/dL Ur Leukocyte Esterase (Negative) Urine RBC (0-5) /hpf Urine WBC (0-5) /hpf Ur Squamous Epith Cells (0-4) /hpf Urine Opiates Screen (NotDetected) Ur Oxycodone Screen (NotDetected) Urine Methadone Screen (NotDetected) Ur Propoxyphene Screen (NotDetected) Ur Barbiturates Screen (NotDetected) U Tricyclic Antidepress (NotDetected) Ur Phencyclidine Scrn (NotDetected) Ur Amphetamines Screen (NotDetected) U Methamphetamines Scrn (NotDetected) U Benzodiazepines Scrn (NotDetected) Urine Cocaine Screen (NotDetected) U Marijuana (THC) Screen (NotDetected) 08/26/20 08/26/20 08/26/20 Range/Units 00:09 00:09 23:53 WBC (3.8-10.6) k/uL RBC (3.80-5.40) m/uL Hgb (11.4-16.0) gm/dL Hct (34.0-46.0) % MCV (80.0-100.0) fL MCH (25.0-35.0) pg MCHC (31.0-37.0) g/dL RDW (11.5-15.5) % Plt Count (150-450) k/uL MPV Neutrophils % % Lymphocytes % % Monocytes % % Eosinophils % % Basophils % % Neutrophils # (1.3-7.7) k/uL Lymphocytes # (1.0-4.8) k/uL Monocytes # (0-1.0) k/uL Eosinophils # (0-0.7) k/uL Basophils # (0-0.2) k/uL PT (9.0-12.0) sec INR (<1.2) APTT (22.0-30.0) sec D-Dimer (<0.60) mg/L FEU Sodium (137-145) mmol/L Potassium (3.5-5.1) mmol/L Chloride (98-107) mmol/L Carbon Dioxide (22-30) mmol/L Anion Gap mmol/L BUN (7-17) mg/dL Creatinine (0.52-1.04) mg/dL Est GFR (CKD-EPI)AfAm (>60 ml/min/1.73 sqM) Est GFR (CKD-EPI)NonAf (>60 ml/min/1.73 sqM) Glucose (74-99) mg/dL Calcium (8.4-10.2) mg/dL Phosphorus (2.5-4.5) mg/dL Magnesium (1.6-2.3) mg/dL Total Bilirubin (0.2-1.3) mg/dL AST (14-36) U/L ALT (4-34) U/L Alkaline Phosphatase (38-126) U/L Troponin I <0.012 (0.000-0.034) ng/mL NT-Pro-B Natriuret Pep 212 pg/mL Total Protein (6.3-8.2) g/dL Albumin (3.5-5.0) g/dL TSH (0.465-4.680) mIU/L Urine Color Urine Appearance (Clear) Urine pH (5.0-8.0) Ur Specific [place] (1.001-1.035) Urine Protein (Negative) Urine Glucose (UA) (Negative) Urine Ketones (Negative) Urine Blood (Negative) Urine Nitrite (Negative) Urine Bilirubin (Negative) Urine Urobilinogen (<2.0) mg/dL Ur Leukocyte Esterase (Negative) Urine RBC (0-5) /hpf Urine WBC (0-5) /hpf Ur Squamous Epith Cells (0-4) /hpf Urine Opiates Screen Not Detected (NotDetected) Ur Oxycodone Screen Not Detected (NotDetected) Urine Methadone Screen Not Detected (NotDetected) Ur Propoxyphene Screen Not Detected (NotDetected) Ur Barbiturates Screen Not Detected (NotDetected) U Tricyclic Antidepress Not Detected (NotDetected) Ur Phencyclidine Scrn Not Detected (NotDetected) Ur Amphetamines Screen Not Detected (NotDetected) U Methamphetamines Scrn Not Detected (NotDetected) U Benzodiazepines Scrn Not Detected (NotDetected) Urine Cocaine Screen Not Detected (NotDetected) U Marijuana (THC) Screen Not Detected (NotDetected) 08/26/20 Range/Units 23:57 WBC (3.8-10.6) k/uL RBC (3.80-5.40) m/uL Hgb (11.4-16.0) gm/dL Hct (34.0-46.0) % MCV (80.0-100.0) fL MCH (25.0-35.0) pg MCHC (31.0-37.0) g/dL RDW (11.5-15.5) % Plt Count (150-450) k/uL MPV Neutrophils % % Lymphocytes % % Monocytes % % Eosinophils % % Basophils % % Neutrophils # (1.3-7.7) k/uL Lymphocytes # (1.0-4.8) k/uL Monocytes # (0-1.0) k/uL Eosinophils # (0-0.7) k/uL Basophils # (0-0.2) k/uL PT (9.0-12.0) sec INR (<1.2) APTT (22.0-30.0) sec D-Dimer (<0.60) mg/L FEU Sodium (137-145) mmol/L Potassium (3.5-5.1) mmol/L Chloride (98-107) mmol/L Carbon Dioxide (22-30) mmol/L Anion Gap mmol/L BUN (7-17) mg/dL Creatinine (0.52-1.04) mg/dL Est GFR (CKD-EPI)AfAm (>60 ml/min/1.73 sqM) Est GFR (CKD-EPI)NonAf (>60 ml/min/1.73 sqM) Glucose (74-99) mg/dL Calcium (8.4-10.2) mg/dL Phosphorus (2.5-4.5) mg/dL Magnesium (1.6-2.3) mg/dL Total Bilirubin (0.2-1.3) mg/dL AST (14-36) U/L ALT (4-34) U/L Alkaline Phosphatase (38-126) U/L Troponin I (0.000-0.034) ng/mL NT-Pro-B Natriuret Pep pg/mL Total Protein (6.3-8.2) g/dL Albumin (3.5-5.0) g/dL TSH (0.465-4.680) mIU/L Urine Color Light Yellow Urine Appearance Clear (Clear) Urine pH 7.5 (5.0-8.0) Ur Specific [place] 1.008 (1.001-1.035) Urine Protein Negative (Negative) Urine Glucose (UA) Negative (Negative) Urine Ketones Negative (Negative) Urine Blood Negative (Negative) Urine Nitrite Negative (Negative) Urine Bilirubin Negative (Negative) Urine Urobilinogen <2.0 (<2.0) mg/dL Ur Leukocyte Esterase Negative (Negative) Urine RBC <1 (0-5) /hpf Urine WBC <1 (0-5) /hpf Ur Squamous Epith Cells <1 (0-4) /hpf Urine Opiates Screen (NotDetected) Ur Oxycodone Screen (NotDetected) Urine Methadone Screen (NotDetected) Ur Propoxyphene Screen (NotDetected) Ur Barbiturates Screen (NotDetected) U Tricyclic Antidepress (NotDetected) Ur Phencyclidine Scrn (NotDetected) Ur Amphetamines Screen (NotDetected) U Methamphetamines Scrn (NotDetected) U Benzodiazepines Scrn (NotDetected) Urine Cocaine Screen (NotDetected) U Marijuana (THC) Screen (NotDetected) - EKG Data -: EKG Interpreted by Me (EKG is sinus tachycardia 108 MT 136 QRS 78 QTc 460) Disposition Clinical Impression: Depression, Suicidal ideation, Psychosis Disposition: TRANSFER TO PSYCH HOSP/UNIT Condition: Fair Is patient prescribed a controlled substance at d/c from ED?: No
[2020-08-27 00:12] LABS: Amphetamine Screen,Urine Not Detected (NotDetected); Barbiturate Screen,Urine Not Detected (NotDetected); Benzodiazepines Screen,Urine Not Detected (NotDetected); Cocaine Screen,Urine Not Detected (NotDetected); Methadone Screen, Urine Not Detected (NotDetected); Opiate Screen,Urine Not Detected (NotDetected); Oxycodone Screen, Urine Not Detected (NotDetected); Phencyclidine Screen,Urine Not Detected (NotDetected); Tricyclic Antidepressant,Urine Not Detected (NotDetected)
[2020-08-27 00:13] LABS: Urn Cannabinoid Scrn Not Detected (NotDetected)
[2020-08-27 00:20] LABS: Appearance,Urine Clear (Clear); Bilirubin,Urine Negative (Negative); Blood,Urine Negative (Negative); Color,Urine Light Yellow; Glucose,Urine (UA) Negative (Negative); Ketones,Urine Negative (Negative); Leukocyte Esterase,Urine Negative (Negative); Nitrite,Urine Negative (Negative); PH, Urine 7.5 (5.0-8.0); Protein,Urine Negative (Negative); RBC,Urine <1 /hpf (0-5); Specific Gravity,Urine 1.008 (1.001-1.035); Squamous Epithelial Cell,Urine <1 /hpf (0-4); Urobilinogen,Urine <2.0 mg/dL (<2.0); WBC,Urine <1 /hpf (0-5)
[2020-08-27 00:26] LABS: Basophils % (A) 0 %; Eosinophils % (A) 0 %; HCT 37.7 % (34.0-46.0); HGB 12.5 gm/dL (11.4-16.0); Lymphocytes # (A) 1.6 k/uL (1.0-4.8); Lymphocytes % (A) 17 %; MCH 31.9 pg (25.0-35.0); MCHC 33.3 g/dL (31.0-37.0); MCV 95.7 fL (80.0-100.0); Mean Platelet Volume 6.9; Monocytes # (A) 0.4 k/uL (0-1.0); Monocytes % (A) 4 %; Neutrophils # (A) 7.6 k/uL (1.3-7.7); Neutrophils % (A) 78 %; Platelet Count 309 k/uL (150-450); RBC 3.93 m/uL (3.80-5.40); RDW 13.5 % (11.5-15.5); WBC 9.7 k/uL (3.8-10.6)
--- NOTE | 2020-08-27 00:30 | XR ---
EXAMINATION TYPE: XR chest 1V portable DATE OF EXAM: 08/27/2020 COMPARISON: 06/30/2020 HISTORY: Altered mental status. Weakness. TECHNIQUE: FINDINGS: Heart and mediastinum are normal. Lungs are clear. Diaphragm is normal. Bony thorax appears intact. IMPRESSION: Normal chest. No change. IMPRESSION:
[2020-08-27 00:46] LABS: D-Dimer 0.4 mg/L FEU (<0.60); INR 0.9 (<1.2); Partial Thromboplastin Time 22.4 sec (22.0-30.0); Prothrombin Time 9.6 sec (9.0-12.0)
[2020-08-27] MEDS ORDERED: ACETAMINOPHEN TAB 500 MG TAB PO STA (01:08)
[2020-08-27 01:32] LABS: Magnesium 2.3 mg/dL (1.6-2.3); Phosphorus 3.5 mg/dL (2.5-4.5); Potassium 4.8 mmol/L (3.5-5.1); Total Bilirubin 0.3 mg/dL (0.2-1.3); Total Protein 8.7 g/dL (6.3-8.2)
[2020-08-27] MEDS ORDERED: KETOROLAC 15 MG/ML 1 ML VIAL IVP ONE (02:45)
[2020-08-27] MEDS ORDERED: ACETAMINOPHEN TAB 325 MG TAB PO PRN (02:52)
[2020-08-27] MEDS ORDERED: MAG HYDROX/AL HYDROX/SIMETH 30 ML CUP PO PRN (02:52)
[2020-08-27] MEDS ORDERED: LORazepam 1 MG TAB PO PRN (02:52)
[2020-08-27] MEDS ORDERED: MAGNESIUM HYDROXIDE 2,400 MG/10 ML CUP PO PRN (02:52)
[2020-08-27] MEDS ORDERED: KETOROLAC 15 MG/ML 1 ML VIAL ONE (02:55)
[2020-08-27] MEDS ORDERED: ALBUTEROL HFA INHALER INHALATION PRN (02:57)
[2020-08-27] MEDS ORDERED: traZODone HCL 100 MG TAB PO PRN (02:57)
[2020-08-27] MEDS ORDERED: LORazepam 2 MG/ML INJ IM PRN (02:59)
[2020-08-27] MEDS ORDERED: haloperidoL 1 MG TAB PO PRN (03:00)
[2020-08-27] MEDS ORDERED: HALOPERIDOL LACTATE 5 MG/ML 1 ML VIAL IM PRN (03:00)
[2020-08-27] MEDS ORDERED: metroNIDAZOLE 500 MG TAB PO SCH (03:00)
[2020-08-27] MEDS ORDERED: PROCHLORPERAZINE INJ 10 MG/2 ML VIAL IVP ONE (03:00)
[2020-08-27] MEDS: LEVOTHYROXINE 75 MCG TAB PO SCH (06:36)
[2020-08-27] MEDS: VARENICLINE 1 MG TAB PO SCH ×2 (08:41→21:09)
[2020-08-27] MEDS: THIAMINE 100 MG TAB PO SCH (08:41)
[2020-08-27] MEDS: ASPIRIN 81 MG PO SCH (08:41)
[2020-08-27] MEDS: SULFAMETHOX-TMP 800-160MG 1 EACH TAB PO SCH ×2 (08:41→21:09)
[2020-08-27] MEDS: PANTOPRAZOLE 40 MG TABLET PO SCH (08:41)
[2020-08-27] MEDS: NICOTINE 21MG/24HR PATCH TRANSDERM SCH (08:44)
[2020-08-27] MEDS ORDERED: OLANZapine 10 MG VIAL IM PRN (10:03)
[2020-08-27] MEDS ORDERED: OLANZapine ODT 5 MG TAB PO PRN (10:03)
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
[2020-08-27 14:59] LABS: T4, Free (Free Thyroxine) 1.22 ng/dL (0.78-2.19)
--- NOTE | 2020-08-27 19:10 | CONS ---
CONSULTATION I am covering for Dr. Domínguez. DATE OF SERVICE: 08/27/2020 REASON FOR CONSULTATION: Advice regarding asthma, COPD, and medical multiple medical issues, requested by Psychiatry. HISTORY OF PRESENT ILLNESS: This 54-year-old woman with a past medical history of asthma, COPD, CHF, DVT, GERD, being followed by Dr. Domínguez in the outpatient setting, was admitted for psychiatric evaluation. There is no history of any fever or rigors. No history of headache, nausea. The patient says that medically she is okay. Patient has some psychiatric symptoms. Patient has depression, suicidal ideations, psychosis. PAST MEDICAL HISTORY: History of asthma, CHF, COPD, DVT. HOME MEDICATIONS: Trazodone, Flagyl, Chantix, vitamin B1, Bactrim, prazosin, Latuda, Synthroid, aspirin, albuterol. ALLERGIES: ADHESIVE TAPE, ABILIFY, MUCINEX, HALDOL, LATEX, ULTRAM. FAMILY HISTORY: History of cancer in the family. SOCIAL HISTORY: No history of smoking. REVIEW OF SYSTEMS: CARDIOVASCULAR SYSTEM: No angina, palpitations. RESPIRATORY SYSTEM: No cough, hemoptysis. GI: No nausea, vomiting. : No dysuria or retention. NERVOUS SYSTEM: No numbness, weakness. ALLERGY/IMMUNOLOGY: No asthma, hayfever. MUSCULOSKELETAL: As mentioned earlier. HEMATOLOGY/ONCOLOGY: No history of anemia. ENDOCRINE: No history of diabetes, hypothyroidism. CONSTITUTIONAL: As mentioned earlier. DERMATOLOGY: Negative. RHEUMATOLOGY: Negative. PSYCHIATRY: As mentioned earlier. PHYSICAL EXAMINATION: Patient alert and oriented x3. Pulse 94, blood pressure 120/80, respiration 18, temperature 98.6, pulse ox 97%. HEENT: Conjunctivae normal. NECK: No jugular venous distention. CARDIOVASCULAR SYSTEM: S1, S2 muffled. RESPIRATORY SYSTEM: Breath sounds diminished at the bases. No rhonchi. No crackles. ABDOMEN: Soft, non-tender. NERVOUS SYSTEM: No focal deficit. LABS: Labs at this time show CBC within normal limits. Otherwise, BUN is 18, glucose 129. TSH is 0.388 and free T3, free T4 are normal. COVID-19 is negative. ASSESSMENT: 1. Depression, suicidal ideations, psychosis, present on admission. 2. History of asthma, chronic obstructive pulmonary disease. 3. History of congestive heart failure. 4. History of deep vein thrombosis. 5. History of gastroesophageal reflux disease. 6. Hyperlipidemia. 7. History of liver disease. 8. History of degenerative joint disease. 9. History of pneumonia. 10.History of sleep apnea. 11.History of blood clot in the left arm. 12.History of Graves' disease. 13.History of methicillin-resistant Staphylococcus aeruginosa. 14.History of breast surgery. 15.Elevated TSH with normal free T3 and free T4. 16.History of cholecystectomy. 17.Anxiety, bipolar, depression, post-traumatic stress disorder, schizoaffective disorder. 18.History of nicotine dependence. RECOMMENDATIONS AND DISCUSSION: I recommend to continue current medications, continue with the monitoring, symptomatic treatment. Resume the home medications when they are confirmed. Otherwise, recommend close followup with primary physician Dr. Corinne Guzmán in the outpatient setting. MMODL / IJN: [id number] /
[2020-08-27] MEDS ORDERED: LURASIDONE 40 MG TAB PO SCH (21:00)
[2020-08-27] MEDS ORDERED: PRAZOSIN 1 MG CAP PO SCH (21:00)
[2020-08-28] MEDS: LEVOTHYROXINE 75 MCG TAB PO SCH (06:03)
[2020-08-28 06:21] VITALS: BP 117/71; PULSE 92; RESP 16; TEMP 98
[2020-08-28 06:54] LABS: Basophils % (A) 0 %; Eosinophils # (A) 0.1 k/uL (0-0.7); Eosinophils % (A) 1 %; HCT 37.8 % (34.0-46.0); Lymphocytes # (A) 2.6 k/uL (1.0-4.8); Lymphocytes % (A) 31 %; MCH 33.3 pg (25.0-35.0); MCHC 34.4 g/dL (31.0-37.0); MCV 96.6 fL (80.0-100.0); Monocytes # (A) 0.4 k/uL (0-1.0); Monocytes % (A) 5 %; Neutrophils # (A) 5.1 k/uL (1.3-7.7); Neutrophils % (A) 61 %; Platelet Count 280 k/uL (150-450); RBC 3.91 m/uL (3.80-5.40); RDW 12.7 % (11.5-15.5); WBC 8.4 k/uL (3.8-10.6)
[2020-08-28 07:07] LABS: Albumin 4.4 g/dL (3.5-5.0); Calcium 9.3 mg/dL (8.4-10.2); Potassium 4.9 mmol/L (3.5-5.1); Total Bilirubin 0.4 mg/dL (0.2-1.3); Total Protein 7.7 g/dL (6.3-8.2)
[2020-08-28] MEDS: THIAMINE 100 MG TAB PO SCH (08:07)
[2020-08-28] MEDS: ASPIRIN 81 MG PO SCH (08:07)
[2020-08-28] MEDS: VARENICLINE 1 MG TAB PO SCH (08:07)
[2020-08-28] MEDS: PANTOPRAZOLE 40 MG TABLET PO SCH (08:07)
[2020-08-28] MEDS: NICOTINE 21MG/24HR PATCH TRANSDERM SCH (08:08)
[2020-08-28] MEDS: SULFAMETHOX-TMP 800-160MG 1 EACH TAB PO SCH (08:08)
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
== END 2020-08-28 13:52 | disposition home or self-care (01) | DRG 885 ==
LOC: EC 23:22 → 3MHU 08-27 02:34
PROVIDERS: ADMIT Psychiatry & Neurology Psychiatry; ATTEND Psychiatry & Neurology Psychiatry
DX: F25.0 Schizoaffective disorder, bipolar type (principal); F43.10 Post-traumatic stress disorder, unspecified; E78.5 Hyperlipidemia, unspecified; E89.0 Postprocedural hypothyroidism; F12.10 Cannabis abuse, uncomplicated; F17.210 Nicotine dependence, cigarettes, uncomplicated; H91.90 Unspecified hearing loss, unspecified ear; I50.9 Heart failure, unspecified; Z20.822 Contact with and (suspected) exposure to COVID-19; J44.9 Chronic obstructive pulmonary disease, unspecified; Z79.82 Long term (current) use of aspirin; Z79.890 Hormone replacement therapy; Z79.899 Other long term (current) drug therapy; Z80.9 Family history of malignant neoplasm, unspecified; Z86.718 Personal history of other venous thrombosis and embolism; Z87.01 Personal history of pneumonia (recurrent); Z90.49 Acquired absence of other specified parts of digestive tract; Z91.5 Personal history of self-harm
CPT/HCPCS: 36415; 71045; 80053; 80061; 80306; 81003; 82075; 83036; 83735; 83880; 84100; 84439; 84443; 84481; 84484; 85025; 85379; 85610; 85730; 87635; 93005; 96361; 96374; 96375; 99285

== ENCOUNTER 2021-02-15 06:59 | Day surgery (SDC) | payer OTHER ==
[2021-02-11 10:34] VITALS: BMI 37.8
[~2021-02-15 06:59] MED LIST changes: +ACETAMINOPHEN TAB 500 MG TAB PO PRN; +HEPARIN SODIUM,PORCINE/PF 5,000 UNIT/0.5 ML SYRINGE SQ PRN; -LIDOCAINE 1% (10MG/ML) FOR IV START INTRADERMA ONE; +LIDOCAINE 1% (10MG/ML) FOR IV START INTRADERMA PRN; -LIDOCAINE 1% INJ 10MG/ML (20 ML MDV) ONE; -PROPOFOL 10 MG/ML 20 ML VIAL IV ONE; +Pre Op ABX Message 1 EACH MISC MISCELLANE ONE
[2021-02-15] MEDS ORDERED: ONDANSETRON 4 MG/2 ML VIAL ONE (07:27)
[2021-02-15] MEDS ORDERED: DEXAMETHASONE SOD PHOSPHATE 4 MG/ML 1 ML VIAL IV ONE (07:32)
[2021-02-15] MEDS ORDERED: LIDOCAINE 1% INJ 10MG/ML (20 ML MDV) ONE (07:57)
[2021-02-15] MEDS ORDERED: PROPOFOL 10 MG/ML 20 ML VIAL IV ONE (07:57)
[2021-02-15] MEDS ORDERED: ePHEDrine 50 MG/ML 1 ML AMP ONE (07:57)
[2021-02-15] MEDS ORDERED: fentaNYL (PF) 50 MCG/ML 2 ML AMP ONE (07:57)
[2021-02-15] MEDS ORDERED: MIDAZOLAM 2 MG/2 ML VIAL ONE (07:57)
[2021-02-15] MEDS ORDERED: KETOROLAC 15 MG/ML 1 ML VIAL ONE (07:57)
[2021-02-15] MEDS ORDERED: SUCCINYLCHOLINE CHLORIDE 100 MG/5 ML SYR IV ONE (07:57)
--- NOTE | 2021-02-15 08:05 | P.GSHP ---
History of Present Illness H&P Date: 02/15/21 Chief Complaint: Arm lipomas of right and left arm Is a 55-year-old female presents today for excision of multiple lipomas right left arm. Patient has 4 lipomas on the left arm measuring between 1 and 2 cm. She has 2 lipomas of the right arm measuring between 12 cm. She presents today for excision. Past Medical History Past Medical History: Asthma, Heart Failure, COPD, Deep Vein Thrombosis (DVT), GERD/Reflux, Hearing Disorder / Deafness, Hyperlipidemia, Liver Disease, Osteoarthritis (OA), Pneumonia, Sleep Apnea/CPAP/BIPAP, Thyroid Disorder Additional Past Medical History / Comment(s): hx BLOOD CLOT LEFT ARM, GRAVES DISEASE, no cpap used, IBS, diff swallowing, hx hepatitis C-tx 2017,short term memory loss History of Any Multi-Drug Resistant Organisms: MRSA Date of last positivie culture/infection: 2016 MDRO Source:: UNDER THE RIGHT BREAST Past Surgical History: Breast Surgery, Cholecystectomy, Orthopedic Surgery, Tubal Ligation Additional Past Surgical History / Comment(s): RIGHT BREAST SURGERY X2(cyst,abscess), mult lipoma removed from RIGHT SHOULDER, THYROIDECTOMY, lipoma x 2 removed rt arm Past Anesthesia/Blood Transfusion Reactions: No Reported Reaction Smoking Status: Current every day smoker - Past Family History Mother Family Medical History: Cancer Father Family Medical History: Cancer Brother(s) Family Medical History: Diabetes Mellitus Sister(s) Family Medical History: Myocardial Infarction (NM) Medications and Allergies Home Medications Medication Instructions Recorded Confirmed Type Albuterol Inhaler [Ventolin Hfa 2 puff INHALATION RT-Q4H PRN 11/13/19 02/15/21 History Inhaler] Omeprazole 40 mg PO DAILY 11/13/19 02/15/21 History Levothyroxine Sodium [Synthroid] 175 mcg PO DAILY 06/30/20 02/15/21 History hydrOXYzine pamoate [hydrOXYzine 25 mg PO BID PRN 06/30/20 02/15/21 History PAMOATE] Aspirin 81 mg PO DAILY chew 07/02/20 02/11/21 Rx Albuterol Nebulized [Ventolin 2.5 mg INHALATION Q6H PRN 02/11/21 02/15/21 History Nebulized] Albuterol Sulfate [Proair Hfa] 1 - 2 puff INHALATION DAILY PRN 02/11/21 02/15/21 History Atorvastatin Calcium [Lipitor] 40 mg PO HS 02/11/21 02/15/21 History Brexpiprazole [Rexulti] 0.5 mg PO HS 02/11/21 02/15/21 History Pregabalin [Lyrica] 150 mg PO BID 02/11/21 02/15/21 History SUMAtriptan SUCCINATE [Imitrex] 50 mg PO DAILY PRN 02/11/21 02/15/21 History valACYclovir HCL 1,000 mg PO TID 02/11/21 02/15/21 History Allergies Allergy/AdvReac Type Severity Reaction Status Date / Time adhesive tape Allergy Itching Verified 02/15/21 07:18 aripiprazole [From Abilify] Allergy Swelling Verified 02/15/21 07:18 OF THROAT guaifenesin [From Mucinex] Allergy Anaphylaxis Verified 02/15/21 07:18 haloperidol [From Haldol] Allergy Swelling Verified 02/15/21 07:18 OF THROAT latex Allergy Swelling/it Verified 02/15/21 07:18 armand tramadol Allergy Swelling Verified 02/15/21 07:18 OF THROAT Surgical - Exam Vital Signs Temp Pulse Resp BP Pulse Ox 98.6 F 83 16 107/72 100 02/15/21 07:24 02/15/21 07:24 02/15/21 07:24 02/15/21 07:24 02/15/21 07:24 - General well developed, well nourished, no distress - Eyes PERRL - ENT normal pinna - Neck no masses - Respiratory normal expansion - Cardiovascular Rhythm: regular - Abdomen Abdomen: soft, non tender - Integumentary Patient's 4 lipomas on her left arm. 2 on the lower arm into her on the upper arm they measured between 12 cm each. On the right arm neuro 2 lipomas one in the lower arm one in the upper arm measuring between 1 and 2 cm each Assessment and Plan Assessment: Multiple bilateral arm lipomas. We'll perform excision.
[2021-02-15] MEDS ORDERED: BUPIVACAINE (PF) 0.25% 30 ML VIAL SQ ONE ×2 (08:25)
--- NOTE | 2021-02-15 09:01 | P.OP ---
Date of Procedure: 02/15/21 Preoperative Diagnosis: Multiple arm lipomas Postoperative Diagnosis: Left arm lipoma 4 Right arm lipoma 2 Procedure(s) Performed: Excision of multiple arm lipomas Anesthesia: BENNY Surgeon: Bobby Mccullough Estimated Blood Loss (ml): 5 Pathology: other (Multiple arm lipomas) Condition: stable Disposition: PACU Description of Procedure: The patient's placed on the operating table in supine position where she received general endotracheal tube anesthesia. Her arms were prepped and draped in sterile fashion. The lipomas were removed and identical fashion. A skin incision was made over the lipoma then using blunt sharp dissection with cautery the lipoma was dissected free. 6 lipomas were dissected and sent to pathology. Left lower arm lipoma 1 x 2 cm Left lower arm lipoma 1 x 2 cm Left upper arm lipoma 2 x 2 centimeters Left upper arm lipoma 2 x 2 centimeters Right lower arm lipoma 1 x 2 cm Right upper arm lipoma 1 x 2 cm The skin was closed with interrupted 3-0 Monocryl suture. Dermabond dressing applied. Patient top she will she was sent to recovery room in stable condition
[2021-02-15 09:05] VITALS: RESP 18; TEMP 96.9
[2021-02-15] MEDS ORDERED: HYDROmorphone 0.5 MG/0.5 ML SYRINGE IVP ONE (09:09)
[2021-02-15 10:16] VITALS: BP 148/87; PULSE 80
== END 2021-02-15 10:22 | disposition home or self-care (01) ==
LOC: OR 06:59
PROVIDERS: ATTEND Surgery
DX: D17.21 Benign lipomatous neoplasm of skin and subcutaneous tissue of right arm (principal); D17.22 Benign lipomatous neoplasm of skin and subcutaneous tissue of left arm; J44.9 Chronic obstructive pulmonary disease, unspecified; I50.9 Heart failure, unspecified; K21.9 Gastro-esophageal reflux disease without esophagitis; H91.90 Unspecified hearing loss, unspecified ear; E78.5 Hyperlipidemia, unspecified; M19.90 Unspecified osteoarthritis, unspecified site; Z87.01 Personal history of pneumonia (recurrent); K76.9 Liver disease, unspecified; E07.9 Disorder of thyroid, unspecified; Z86.718 Personal history of other venous thrombosis and embolism; G47.30 Sleep apnea, unspecified; E05.00 Thyrotoxicosis with diffuse goiter without thyrotoxic crisis or storm; K58.9 Irritable bowel syndrome, unspecified; F17.200 Nicotine dependence, unspecified, uncomplicated; Z86.19 Personal history of other infectious and parasitic diseases; R41.3 Other amnesia; Z86.14 Personal history of Methicillin resistant Staphylococcus aureus infection; Z90.49 Acquired absence of other specified parts of digestive tract; Z98.51 Tubal ligation status; Z98.890 Other specified postprocedural states; Z80.9 Family history of malignant neoplasm, unspecified; Z83.3 Family history of diabetes mellitus; Z79.82 Long term (current) use of aspirin; Z79.890 Hormone replacement therapy; Z79.899 Other long term (current) drug therapy; Z91.040 Latex allergy status; Z88.5 Allergy status to narcotic agent; Z88.8 Allergy status to other drugs, medicaments and biological substances; Z91.09 Other allergy status, other than to drugs and biological substances
CPT/HCPCS: 88304; 25071; 24071; J2250; J1100; J2405; J2001; J3010; J1885; J0330; J2704; J1170; J1644

== ENCOUNTER → 2021-05-11 | Outpatient (CLI) | payer OTHER ==
[~2021-05-11] MED LIST changes: -ACETAMINOPHEN TAB 500 MG TAB PO PRN; -HEPARIN SODIUM,PORCINE/PF 5,000 UNIT/0.5 ML SYRINGE SQ PRN; +IODINE/POTASS IOD (LUGOLS) BOTTLE TOPICAL ONE; -LACTATED RINGERS 1,000 ML IV SCH; -LIDOCAINE 1% (10MG/ML) FOR IV START INTRADERMA PRN; -Pre Op ABX Message 1 EACH MISC MISCELLANE ONE
--- NOTE | 2021-05-12 11:39 | NM ---
EXAMINATION TYPE: NM DatScan Brain SPECT DATE OF EXAM: 05/11/2021 COMPARISON: Brain MR 07/01/2020 HISTORY: G 25.0 TECHNIQUE: 10 drops of Lugol's solution was administered 1 hour prior to injection as a thyroid bloc pritesh agent. After the administration of 4.43 mCi I-123 Ioflupane DaTscan. Images obtained 3 hours p ost injection. SPECT images of the brain were acquired with axial and coronal reconstructions. FINDINGS: Uptake along the striata is symmetric and normal IMPRESSION: Normal HECTOR scan
== END | disposition home or self-care (01) ==
LOC: RADNMMAIN 10:40
PROVIDERS: ATTEND Psychiatry & Neurology Neurology
DX: G25.0 Essential tremor (principal)
CPT/HCPCS: 78803; A9584

== ENCOUNTER → 2021-08-31 | Outpatient (CLI) | payer OTHER ==
--- NOTE | 2021-08-31 15:57 | MM ---
Reason for Exam: Clinical finding. Last screening mammogram was performed 10 month(s) ago. Indicated Problems: Pain of the right side for 6 Month(s) : PT STATES ENLARGED PAINFUL LYMPH NODES. Pain of the right side. Patient History: Menarche at age 9. First Full-Term at age 17. Postmenopausal. Paternal aunt had breast cancer. Risk Values: Elizabeth 5 year model risk: 0.9%. NCI Lifetime model risk: 6.6%. Film Views: Bilateral CC views were taken. Bilateral MLO views were taken. Prior Study Comparison: 10/15/2020 Bilateral MG 3D screening mammo w/cad, [facility]. Tissue Density: There are scattered fibroglandular densities. Findings: Analyzed By CAD. Mammogram No significant change from prior exam. Technique: Method: Targeted. Findings: The upper outer quadrant of the right breast and the axilla of the right breast were scanned. Breast Ultrasound There is no solid or cystic lesion or axillary lymphadenopathy. Overall Assessment: Negative, BI-RAD 1 Assessment: MG 3D diag mammo w/cad PAM - Bilateral: Negative, BI-RAD 1. US breast limited RT - Right: Negative, BI-RAD 1. Management: Screening Mammogram of both breasts in 1 year. 1. Further clinical management of patient's right upper quadrant/axillary pain. 2. A clinical breast exam by your physician is recommended on an annual basis and results should be correlated with mammographic findings. Patient should continue monthly self breast exam. 3. This exam should not preclude additional follow-up of suspicious palpable abnormalities.
== END | disposition home or self-care (01) ==
LOC: RADMAMWWP 14:47
PROVIDERS: ATTEND Family Medicine
DX: R92.8 Other abnormal and inconclusive findings on diagnostic imaging of breast (principal); Z78.0 Asymptomatic menopausal state; R59.9 Enlarged lymph nodes, unspecified; Z80.3 Family history of malignant neoplasm of breast
CPT/HCPCS: 77066; 76642; G0279; 77062

== ENCOUNTER 2021-10-25 11:56 | Day surgery (SDC) | payer OTHER ==
[2021-10-20 12:28] VITALS: BMI 42.0
[~2021-10-25 11:56] MED LIST changes: -IODINE/POTASS IOD (LUGOLS) BOTTLE TOPICAL ONE; +LACTATED RINGERS 1,000 ML IV SCH
[2021-10-25 13:09] LABS: Glucose,Whole Blood 112 mg/dL (70-110)
[2021-10-25 13:10] VITALS: RESP 20; TEMP 97.4
[2021-10-25] MEDS ORDERED: PROPOFOL 10 MG/ML 20 ML VIAL IV ONE (13:10)
[2021-10-25] MEDS ORDERED: LIDOCAINE 2% INJ 20 MG/ML (2 ML VIAL) ONE (13:10)
--- NOTE | 2021-10-25 13:14 | P.GSHP ---
History of Present Illness H&P Date: 10/25/21 Chief Complaint: Dysphagia This a 56-year-old female with history of dysphagia. Patient presents today for EGD. Past Medical History Past Medical History: Asthma, Heart Failure, COPD, Deep Vein Thrombosis (DVT), GERD/Reflux, Hearing Disorder / Deafness, Hyperlipidemia, Hypertension, Liver Disease, Osteoarthritis (OA), Pneumonia, Seizure Disorder, Sleep Apnea/CPAP/BIPAP, Thyroid Disorder Additional Past Medical History / Comment(s): Hx BLOOD CLOT LEFT ARM, GRAVES DISEASE, CPAP use, IBS, difficulty swallowing, hx Hepatitis C with treatment in 2018, short term memory loss, hard of hearing, hx seizures, "none in many yrs", "Borderline Diabetic." History of Any Multi-Drug Resistant Organisms: MRSA Date of last positivie culture/infection: 2017 MDRO Source:: UNDER THE RIGHT BREAST Past Surgical History: Breast Surgery, Cholecystectomy, Orthopedic Surgery, Tubal Ligation Additional Past Surgical History / Comment(s): RIGHT BREAST SURGERY X2(cyst/abscess), multiple lipomas removed from right shoulder and X2 from right arm, thyroidectomy. Past Anesthesia/Blood Transfusion Reactions: No Reported Reaction Additional Drug Use History / Comment(s): No Marijuana in over a yr. - Past Family History Mother Family Medical History: Cancer, Deep Vein Thrombosis (DVT) Father Family Medical History: Cancer Brother(s) Family Medical History: Diabetes Mellitus Sister(s) Family Medical History: Myocardial Infarction ([place]) Medications and Allergies Home Medications Medication Instructions Recorded Confirmed Type Albuterol Inhaler [Ventolin Hfa 2 puff INHALATION Q4H PRN 11/13/19 10/20/21 History Inhaler] Omeprazole 40 mg PO DAILY 11/13/19 10/20/21 History Albuterol Nebulized [Ventolin 2.5 mg INHALATION BID 02/11/21 10/20/21 History Nebulized] Albuterol Sulfate [Proair Hfa] 1 - 2 puff INHALATION DAILY PRN 02/11/21 10/20/21 History Atorvastatin Calcium [Lipitor] 40 mg PO HS 02/11/21 10/20/21 History Pregabalin [Lyrica] 150 mg PO BID 02/11/21 10/20/21 History SUMAtriptan succinate [Imitrex] 50 mg PO DAILY PRN 02/11/21 10/20/21 History Cyclobenzaprine [Flexeril] 10 mg PO HS 10/20/21 10/20/21 History Levothyroxine Sodium 200 mcg PO QAM 10/20/21 10/20/21 History Paliperidone [Invega] 3 mg PO HS 10/20/21 10/20/21 History Umeclidinium [place] [Incruse 62.5 mcg INHALATION QAM 10/20/21 10/20/21 History Ellipta] cloNIDine HCL 0.2 mg PO QAM 10/20/21 10/20/21 History hydrOXYzine HCL [Hydroxyzine HCl] 10 mg PO BID 10/20/21 10/20/21 History traMADol HCL 50 mg PO TID PRN 10/20/21 10/20/21 History valACYclovir HCL [Valacyclovir] 500 mg PO DAILY 10/20/21 10/20/21 History Allergies Allergy/AdvReac Type Severity Reaction Status Date / Time adhesive tape Allergy Itching Verified 10/25/21 12:49 almond Allergy Swelling Verified 10/25/21 12:49 aripiprazole [From Abilify] Allergy Swelling Verified 10/25/21 12:49 OF THROAT guaifenesin [From Mucinex] Allergy Anaphylaxis Verified 10/25/21 12:49 haloperidol [From Haldol] Allergy Swelling Verified 10/25/21 12:49 OF THROAT latex Allergy Swelling/it Verified 10/25/21 12:49 armand Mushroom Allergy Swelling Verified 10/25/21 12:49 tree nut [Pecan] Allergy Swelling Verified 10/25/21 12:49 watermelon Allergy Swelling Verified 10/25/21 12:49 Surgical - Exam Vital Signs Temp Pulse Resp BP Pulse Ox 97.4 F L 91 20 124/80 99 10/25/21 13:07 10/25/21 13:07 10/25/21 13:07 10/25/21 13:07 10/25/21 13:07 - General well developed, well nourished, no distress - Eyes PERRL - ENT normal pinna - Neck no masses - Respiratory normal expansion - Cardiovascular Rhythm: regular - Abdomen Abdomen: soft, non tender Results - Labs Abnormal Lab Results - Last 24 Hours (Table) 10/25/21 Range/Units 13:08 POC Glucose (mg/dL) 112 H (70-110) mg/dL Assessment and Plan Assessment: History dysphagia. We'll perform EGD.
--- NOTE | 2021-10-25 13:20 | P.OP ---
Date of Procedure: 10/25/21 Preoperative Diagnosis: Dysphagia Postoperative Diagnosis: Antral gastritis Esophagitis Small hiatal hernia Procedure(s) Performed: EGD Anesthesia: MAC Surgeon: Bobby Mccullough Pathology: other (Antrum, esophagus) Condition: stable Disposition: PACU Description of Procedure: Patient's placed on the endoscopy table in the lateral position. She received IV sedation. The gastroscope placed oropharynx passed in the esophagus and stomach. Scope was then placed through the pylorus. The first and second portion of the duodenum appeared normal. Scope summer back the antrum was mildly inflamed. A biopsies performed. Scope was then retroflexed and the remainder of the stomach appeared normal. The patient had a small hiatal hernia. The GE junction was at 40 cm. The distal esophagus appeared inflamed. This was biopsied. The proximal esophagus appeared normal. Scope withdrawn for patient.
[2021-10-25 13:42] VITALS: BP 113/71; PULSE 86
== END 2021-10-25 13:45 | disposition home or self-care (01) ==
LOC: ORWHC2ENDO 11:56
PROVIDERS: ATTEND Surgery
DX: K21.00 Gastro-esophageal reflux disease with esophagitis, without bleeding (principal); K29.50 Unspecified chronic gastritis without bleeding; K44.9 Diaphragmatic hernia without obstruction or gangrene; I11.0 Hypertensive heart disease with heart failure; I50.9 Heart failure, unspecified; J44.9 Chronic obstructive pulmonary disease, unspecified; E78.5 Hyperlipidemia, unspecified; F17.210 Nicotine dependence, cigarettes, uncomplicated; K76.9 Liver disease, unspecified; M19.90 Unspecified osteoarthritis, unspecified site; G47.33 Obstructive sleep apnea (adult) (pediatric); E05.00 Thyrotoxicosis with diffuse goiter without thyrotoxic crisis or storm; G40.909 Epilepsy, unspecified, not intractable, without status epilepticus; K58.9 Irritable bowel syndrome, unspecified; R73.03 Prediabetes; H91.90 Unspecified hearing loss, unspecified ear; R41.3 Other amnesia; E89.0 Postprocedural hypothyroidism; Z86.718 Personal history of other venous thrombosis and embolism; Z87.01 Personal history of pneumonia (recurrent); Z83.3 Family history of diabetes mellitus; Z82.49 Family history of ischemic heart disease and other diseases of the circulatory system; Z90.49 Acquired absence of other specified parts of digestive tract; Z98.890 Other specified postprocedural states; Z86.19 Personal history of other infectious and parasitic diseases; Z98.51 Tubal ligation status; Z79.899 Other long term (current) drug therapy; Z79.890 Hormone replacement therapy; Z91.040 Latex allergy status; Z91.018 Allergy to other foods; Z88.8 Allergy status to other drugs, medicaments and biological substances; Z91.09 Other allergy status, other than to drugs and biological substances
CPT/HCPCS: 88305; 43239; J2704; J2001

== ENCOUNTER → 2021-12-29 | Outpatient (CLI) | payer OTHER ==
--- NOTE | 2021-12-29 14:38 | P.PN ---
Subjective DATE: 12/29/2021 FOLLOW UP VISIT. Patient with obstructive sleep apnea hypopnea syndrome return to sleep center for follow-up visit. Recently patient had sleep study which documented obstructive sleep apnea hypopnea syndrome. Patient was initiated on PAP therapy and today is first visit after treatment was started. Patient was able to use PAP equipment every night for the whole night. The patient does not have significant problems with the mask or humidification. She feels that sometimes pressure is not enough at the beginning when started to use CPAP and also in the middle of the night. [place] sleepiness scale is still increased to 18. I checked information from PAP unit and Pap unit itself. PAP unit pressure 5-12, average 11.9 cm H2O. Usage is 90 % for more then 4 hours, average 6.25 hours per night. Leak is 0.4 l/m, which is great. Apnea Hypopnea Index is 1.3, which is perfect. MEDICATIONS:1. Levothyroxine 200 g once a day 2. Omeprazole 40 mg once a day 3. Atorvastatin 20 mg once a day 4. Gabapentin 150 mg twice a day 5. Sumatriptan 40 mg once a day 6. Hydroxyzine 50 mg twice a day 7. Motrin as needed During physical exam: GENERAL: A pleasant patient without any distress. VITAL SIGNS: BP 121/81, HR 106, RR 18 , weight 246.6, temperature 97.2, oxygen saturation at room air 98% . HEENT: PERRLA, EOMI.low position of soft palate, Mallapati 4 . NECK: Supple. No JVD. LUNGS: Clear to percussion and to auscultation. Good air exchange. No wheezing or rhonchi. HEART: S1, S2 regular. ABDOMEN: Soft and nontender. Obese EXTREMITIES: No clubbing or cyanosis. OIL HEAT TECHNICIAN: Awake, alert, and oriented x3. No focal deficit. Impressions: 1. Obstructive sleep apnea-hypopnea syndrome. Patient demonstrated great compliance with treatment, benefiting from treatment. 2. [place] Sleepiness Scale steel is in a high range of 18. 3. History of graves disease status post tonsillectomy, on thyroid replacement therapy. 4. Migraines. 5. Anxiety. 6. Acid reflux. 7. Hyperlipidemia. 8. Status post cholecystectomy. 9. Status post right shoulder surgery. Plan: 1. Continue using PAP equipment every night for the whole night. I adjusted ramp pressure up to 7 and AutoPap pressure to the range 7-15 cm of water. Patient tried to use CPAP equipment with increased pressure in the office. 2. To change air filter at least 1-2 times per month. 3. PAP unit should stay lower then position of the head. 4. Advised patient to remove all remaining water from humidifier canister daily and make it dry after each usage. Refill canister with fresh distilled water before each usage. 5. Sleep hygiene with regular time in bed for at least 8 hours. 6. Precautions related to driving. No driving if feel any sleepiness. 7. I will maintain prescription for PAP supplies including mask, tube, filters. 8. Follow up visit in 6 months or earlier if patient has any problems. 9. Watching and losing weight. Thank you very much for allowing me to participate in the management of your patient. Stephen Chiu MD, PhD, FAASM. Diplomat of [place] [employer], Sleep Medicine Board by [place] [employer] Switch Operator [facility] [place]
== END ==
LOC: SLEEP 13:36
PROVIDERS: ATTEND Internal Medicine
DX: G47.33 Obstructive sleep apnea (adult) (pediatric) (principal); G43.909 Migraine, unspecified, not intractable, without status migrainosus; F41.9 Anxiety disorder, unspecified; K21.9 Gastro-esophageal reflux disease without esophagitis; E78.5 Hyperlipidemia, unspecified; Z90.49 Acquired absence of other specified parts of digestive tract; Z98.890 Other specified postprocedural states; Z86.39 Personal history of other endocrine, nutritional and metabolic disease; Z90.09 Acquired absence of other part of head and neck; Z99.89 Dependence on other enabling machines and devices; Z91.048 Other nonmedicinal substance allergy status; Z91.018 Allergy to other foods; Z91.040 Latex allergy status; Z88.9 Allergy status to unspecified drugs, medicaments and biological substances

== ENCOUNTER 2022-08-29 05:44 | Day surgery (SDC) | payer OTHER ==
[2022-08-25 10:48] VITALS: BMI 39.3
[~2022-08-29 05:44] MED LIST changes: +ACETAMINOPHEN TAB 500 MG TAB PO PRN; +HEPARIN SODIUM,PORCINE/PF 5,000 UNIT/0.5 ML SYRINGE SQ PRN; -LACTATED RINGERS 1,000 ML IV SCH; +Pre Op ABX Message 1 EACH MISC MISCELLANE ONE
[2022-08-29] MEDS ORDERED: ONDANSETRON 4 MG/2 ML VIAL ONE (07:10)
[2022-08-29] MEDS ORDERED: BUPIVACAINE (PF) 0.25% 30 ML VIAL SQ ONE ×2 (07:13→08:20)
[2022-08-29 07:29] LABS: Glucose,Whole Blood 116 mg/dL (70-110)
[2022-08-29] MEDS ORDERED: LACTATED RINGERS 1,000 ML IV ONE (07:29)
[2022-08-29] MEDS ORDERED: DEXAMETHASONE SOD PHOSPHATE 4 MG/ML 1 ML VIAL IVP ONE (07:29)
[2022-08-29] MEDS ORDERED: MIDAZOLAM 2 MG/2 ML VIAL ONE (07:46)
[2022-08-29] MEDS ORDERED: LIDOCAINE 2% INJ 20 MG/ML (2 ML VIAL) ONE (07:46)
[2022-08-29] MEDS ORDERED: fentaNYL (PF) 50 MCG/ML 2 ML AMP ONE (07:46)
[2022-08-29] MEDS ORDERED: SODIUM CHLORIDE 0.9% 100 ML BAG ONE (07:46)
[2022-08-29] MEDS ORDERED: PROPOFOL 10 MG/ML 20 ML VIAL IV ONE (07:46)
[2022-08-29] MEDS ORDERED: ceFAZolin 1,000 MG VIAL ONE (07:46)
[2022-08-29 07:59] LABS: ALT 17 U/L (4-34); AST 20 U/L (14-36); African American GFR (CKD) >90 (>60 ml/min/1.73 sqM); Albumin 3.9 g/dL (3.5-5.0); Alkaline Phosphatase 73 U/L (38-126); Anion Gap 8 mmol/L; Blood Urea Nitrogen 13 mg/dL (7-17); Calcium 8.4 mg/dL (8.4-10.2); Carbon Dioxide 25 mmol/L (22-30); Chloride 108 mmol/L (98-107); Glucose 106 mg/dL (74-99); Non-African American GFR(CKD) 82 (>60 ml/min/1.73 sqM); Potassium 4.3 mmol/L (3.5-5.1); Sodium 141 mmol/L (137-145); Total Bilirubin 0.5 mg/dL (0.2-1.3); Total Protein 6.8 g/dL (6.3-8.2)
[2022-08-29] MEDS ORDERED: SODIUM CHLORIDE 0.9% 50 ML with ceFAZolin 2,000 MG IV ONE ×2 (08:07)
[2022-08-29 08:37] VITALS: RESP 16; TEMP 96.8
--- NOTE | 2022-08-29 08:47 | P.OP ---
Date of Procedure: 08/29/22 Preoperative Diagnosis: Multiple lipomas right and left arm Postoperative Diagnosis: Multiple lipomas right and left arm Procedure(s) Performed: Excision of left lower arm lipoma 2 Excision of right upper arm lipoma Excision of right lower arm lipoma Anesthesia: BENNY Surgeon: Bobby Mccullough Estimated Blood Loss (ml): 5 Pathology: other (Arm lipoma) Condition: stable Disposition: PACU Description of Procedure: Patient's placed on the operative table in the supine position. She received general endotracheal tube anesthesia. Her arms were prepped and draped usual fashion. The patient had 2 lipomas on her left lower arm. Using a 15 blade the skin was incised over each lipoma. Then using blunt and sharp dissection with cautery lipoma was excised. Each lipoma measured approximately 2 cm there. They were sent to pathology. Next the right lower arm lipoma was was removed. The skin was incised over the lipoma and then using blunt and sharp scissors dissection with cautery the lipoma was dissected free so pathology. This lipoma measured 2 cm diameter. Next the right upper arm was removed. The skin was incised with a 15 blade and then using blunt and sharp dissection with cautery the lipoma was excised. The lipoma measured 3 cm stable. Next all of the incision sites were anesthetized 1% local Xylocaine. And then using a 3-0 Monocryl suture the skin was closed. Dermabond was applied. Patient top she will was sent to recovery room stable condition.
[2022-08-29] MEDS ORDERED: HYDROmorphone 0.5 MG/0.5 ML SYRINGE IVP ONE (08:48)
[2022-08-29 08:55] LABS: Glucose,Whole Blood 128 mg/dL (70-110)
[2022-08-29 09:45] VITALS: BP 93/51; PULSE 80
== END 2022-08-29 10:01 | disposition home or self-care (01) ==
LOC: OR 05:44
PROVIDERS: ATTEND Surgery
DX: D17.21 Benign lipomatous neoplasm of skin and subcutaneous tissue of right arm (principal); D17.22 Benign lipomatous neoplasm of skin and subcutaneous tissue of left arm; J44.9 Chronic obstructive pulmonary disease, unspecified; F41.9 Anxiety disorder, unspecified; F32.A Depression, unspecified; I11.0 Hypertensive heart disease with heart failure; G47.33 Obstructive sleep apnea (adult) (pediatric); F12.90 Cannabis use, unspecified, uncomplicated; I50.9 Heart failure, unspecified; F17.200 Nicotine dependence, unspecified, uncomplicated; E78.5 Hyperlipidemia, unspecified; Z98.51 Tubal ligation status; Z90.49 Acquired absence of other specified parts of digestive tract; Z90.89 Acquired absence of other organs; K21.9 Gastro-esophageal reflux disease without esophagitis; Z98.890 Other specified postprocedural states; Z79.890 Hormone replacement therapy; Z79.899 Other long term (current) drug therapy
CPT/HCPCS: 80053; 24075; J2250; J1100; J2405; J0690; J3010; J2704; J1170; J1644; J2001; 88304

== ENCOUNTER → 2022-09-13 | Outpatient (CLI) | payer OTHER ==
--- NOTE | 2022-09-13 12:34 | MM ---
Reason for Exam: Clinical finding. Last screening mammogram was performed 12 month(s) ago. Patient History: Menarche at age 9. First Full-Term at age 17. Postmenopausal. Paternal aunt had breast cancer. Risk Values: Elizabeth 5 year model risk: 1.0%. NCI Lifetime model risk: 6.4%. Prior Study Comparison: 10/15/2020 Bilateral MG 3D screening mammo w/cad, [facility]. 08/31/2021 Right US breast limited RT, [facility]. 08/31/2021 Bilateral MG 3D diag mammo w/cad PAM, [facility]. Tissue Density: The breast tissue is almost entirely fat. Findings: Analyzed By CAD. No new suspicious masses, calcifications or distortions. Overall Assessment: Negative, BI-RAD 1 Management: Diagnostic Breast Ultrasound of both breasts. Ultrasound was ordered by provider. No finding to target. Results were given to the patient verbally at the time of exam. Patient should continue monthly self-breast exams. A clinical breast exam by your physician is recommended on an annual basis. This exam should not preclude additional follow-up of suspicious palpable abnormalities. Note on Elizabeth scores and lifetime risk: 1. A Elizabeth score greater than 3% is considered moderate risk. If this is the case, consider specialist referral to assess eligibility for a risk reducing agent. 2. If overall lifetime risk for the development of breast cancer is 20% or higher, the patient may qualify for future screening with alternating mammogram and breast MRI. Electronically signed and approved by: Delroy Lagunas DO
--- NOTE | 2022-09-13 13:30 | USB ---
Reason for Exam: Clinical finding. Patient History: Menarche at age 9. First Full-Term at age 17. Postmenopausal. Paternal aunt had breast cancer. Risk Values: Elizabeth 5 year model risk: 1.0%. NCI Lifetime model risk: 6.4%. Technique: Method: Whole Breast Handheld. Prior Study Comparison: 10/15/2020 Bilateral MG 3D screening mammo w/cad, [facility]. 08/31/2021 Bilateral MG 3D diag mammo w/cad [facility]. Findings: The whole breast of the right breast, the axilla of the right breast and the retroareolar of the right breast were scanned. Imaged: Ultrasound imaging of: All 4 quadrants, the retroareolar region and axilla. No evidence for organizing fluid collection or mass. Overall Assessment: Negative, BI-RAD 1 Management: Screening Mammogram of both breasts in 1 year. A clinical breast exam by your physician is recommended on an annual basis and results should be correlated with mammographic findings. This exam should not preclude additional follow-up of suspicious palpable abnormalities. Results were given to the patient verbally at the time of exam. Electronically signed and approved by: Delroy Lagunas DO
== END | disposition home or self-care (01) ==
LOC: RADMAMWWP 11:43
PROVIDERS: ATTEND Surgery
DX: N64.52 Nipple discharge (principal); Z78.0 Asymptomatic menopausal state; Z80.3 Family history of malignant neoplasm of breast
CPT/HCPCS: 77066; 76641; G0279; 77062

== ENCOUNTER → 2022-09-28 | Outpatient (CLI) | payer OTHER ==
--- NOTE | 2022-09-28 12:28 | P.PN ---
Subjective Progress Note Date: 09/28/22 Principal diagnosis: Chronic draining site right nipple areolar area recurrent breasst abcesses Qi is a 56 year old white female seen in consultation for Lina Callaway regarding multiple abcesses in the breast. Patient has had 2 right breast excisional biopsies in 1987 and 1996. Those were done for benign cyst or abscess drainage. The first surgery was in [place] and the second surgery was in [place]. She did not have any cancer. The patient states since 1996 every several weeks she develops swelling of the breast near the nipple areolar complex on the right and then drainage either through a site near the areolar or through the nipple. She has not had any fever or chills. She had a bilateral mammogram and a right breast ultrasound on 09-13-22. This was BIRAD 1. Caffeine: 2 coffee/day, soda nicotine: 15 cigarettes/day chocolate: weekly BCP: none Family History: maternal grandmother: breast cancer maternal aunt: breast cancer father: cancer ? type mother: lung cancer Hormonal History: menarche: 9 breast fed: yes, age at first : 17 menopause: 35 hormones: none Surgical History: breast surgery shoulder surgery lipoma removed tubaligation gallbladder Medical History: back pain COPD skizophrenic bipolar PTSD anxiety/panic attacks seizures in the past Social History: nicotine: As per HPI Alcohol: none, stopped 65 days ago used to black out drugs: none, used to used them stopped 65 days ago - Constitutional Constitutional: Denies chills, Denies fever - EENT Eyes: denies blurred vision, denies pain Ears: bilateral: decreased hearing, tinnitus Ears, nose, mouth and throat: Reports headache - Breasts Breasts: bilateral: as per HPI - Cardiovascular Cardiovascular: Reports shortness of breath, Denies chest pain - Respiratory Respiratory: Reports cough - Gastrointestinal Comment: hiatal hernia Gastrointestinal: Denies abdominal pain, Denies diarrhea, Denies nausea, Denies vomiting - Genitourinary (Female) Genitourinary: Denies dysuria, Denies hematuria - Menstruation Menstruation: Reports postmenopausal - Musculoskeletal Musculoskeletal: Reports myalgias - Integumentary Integumentary: Reports as per HPI - Neurological Neurological: Reports numbness, Reports weakness - Psychiatric Psychiatric: Reports as per HPI, Reports anxiety, Reports depression - Endocrine Endocrine: Reports fatigue, Reports weight change - Hematologic/Lymphatic Comment: none - Allergic/Immunologic Allergic/Immunologic: Reports seasonal allergies Past Medical History Past Medical History: Asthma, Heart Failure, COPD, Deep Vein Thrombosis (DVT), GERD/Reflux, Hearing Disorder / Deafness, Hyperlipidemia, Hypertension, Liver Disease, Osteoarthritis (OA), Pneumonia, Seizure Disorder, Sleep Apnea/CPAP/BIPAP, Thyroid Disorder Additional Past Medical History / Comment(s): Hx BLOOD CLOT LEFT ARM, GRAVES DISEASE, CPAP use, IBS, difficulty swallowing, hx Hepatitis C with treatment in 2018, short term memory loss, hard of hearing, hx seizures, "none in many yrs", "Borderline Diabetic." History of Any Multi-Drug Resistant Organisms: MRSA Date of last positivie culture/infection: 2017 MDRO Source:: UNDER THE RIGHT BREAST Past Surgical History: Breast Surgery, Cholecystectomy, Orthopedic Surgery, Tubal Ligation Additional Past Surgical History / Comment(s): RIGHT BREAST SURGERY X2(cyst/abscess), multiple lipomas removed from right shoulder and X2 from right arm, thyroidectomy. Past Anesthesia/Blood Transfusion Reactions: No Reported Reaction Past Psychological History: Anxiety, Bipolar, Depression, PTSD, Schizoaffective Disorder Smoking Status: Current every day smoker Past Alcohol Use History: Abuse Additional Past Alcohol Use History / Comment(s): STARTED SMOKING AT AGE 5 QUIT ON AND OFF (TRYING TO QUIT NOW), 1/2 PPD. HISTORY OF ALCOHOL ABUSE NONE IN OVER ONE YEAR. Past Drug Use History: Cocaine, Marijuana Additional Drug Use History / Comment(s): No Marijuana in over a yr. - Past Family History Mother Family Medical History: Cancer, Deep Vein Thrombosis (DVT) Father Family Medical History: Cancer Brother(s) Family Medical History: Diabetes Mellitus Sister(s) Family Medical History: Myocardial Infarction ([place]) Medications and Allergies Home Medications Medication Instructions Recorded Confirmed Type Acetaminophen Tab [Tylenol] 650 mg PO Q6HR PRN 30 Days #240 tab 06/24/22 08/19/22 Rx Albuterol Inhaler [Ventolin Hfa 1 puff INHALATION RT-QID PRN 30 06/24/22 08/19/22 Rx Inhaler] Days #1 each Atorvastatin Calcium [Lipitor] 40 mg PO HS 30 Days #30 tab 06/24/22 08/19/22 Rx Furosemide [Lasix] 20 mg PO DAILY 30 Days #30 tab 06/24/22 08/19/22 Rx Ibuprofen 600 mg PO Q8H PRN 30 Days #90 tab 06/24/22 08/19/22 Rx Lurasidone [Latuda] 80 mg PO 1800 30 Days #30 tab 06/24/22 08/19/22 Rx Omeprazole 40 mg PO DAILY 30 Days #30 cap 06/24/22 08/19/22 Rx Pregabalin [Lyrica] 150 mg PO BID 14 Days #28 cap 06/24/22 08/19/22 Rx Vortioxetine Hydrobromide 20 mg PO HS 30 Days #30 tab 06/24/22 08/19/22 Rx [Trintellix] hydrOXYzine HCL [Atarax] 50 mg PO TID 30 Days #90 tab 06/24/22 08/19/22 Rx lisinopriL [Prinivil] 20 mg PO DAILY 30 Days #30 tab 06/24/22 08/19/22 Rx valACYclovir HCL [Valacyclovir] 500 mg PO DAILY 30 Days #30 tab 06/24/22 08/19/22 Rx Cyclobenzaprine [Flexeril] 10 mg PO HS 08/19/22 08/19/22 History Deutetrabenazine [Austedo] 9 mg PO DAILY 08/19/22 08/19/22 History Levothyroxine Sodium [Synthroid] 150 mcg PO DAILY 08/19/22 08/19/22 History oxyCODONE-APAP 10-325MG [Percocet 1 tab PO Q8HR PRN 08/19/22 08/19/22 History 10-325 mg] Allergies Allergy/AdvReac Type Severity Reaction Status Date / Time adhesive tape Allergy Itching Verified 08/19/22 14:14 almond Allergy Swelling Verified 08/19/22 14:14 aripiprazole [From Abilify] Allergy Swelling Verified 08/19/22 14:14 OF THROAT guaifenesin [From Mucinex] Allergy Anaphylaxis Verified 08/19/22 14:14 haloperidol [From Haldol] Allergy Swelling Verified 08/19/22 14:14 OF THROAT latex Allergy Swelling/it Verified 08/19/22 14:14 armand Mushroom Allergy Swelling Verified 08/19/22 14:14 tree nut [Pecan] Allergy Swelling Verified 08/19/22 14:14 watermelon Allergy Swelling Verified 08/19/22 14:14 Objective - Constitutional General appearance: Present: cooperative - EENT Eyes: Present: EOMI ENT: Present: hearing grossly normal - Neck Neck: Present: normal ROM - Respiratory Respiratory: bilateral: CTA - Cardiovascular Rhythm: regular Heart sounds: normal: S1, S2 - Gastrointestinal General gastrointestinal: Present: soft - Integumentary Integumentary: Present: normal turgor - Musculoskeletal Musculoskeletal: Present: gait normal - Psychiatric Psychiatric: Present: A&O x's 3, appropriate affect, intact judgment & insight - Additional findings Additional findings: RA: sports bra XXX inspection: Bilateral grade 2 ptosis Palpation: Right breast: Multi-positional exam fibrocystic changes, in the 12:30 position in the near nipple area there is a small punctate opening that the patient states has drainage at times, she is able to express sebum-like material from the nipple area Right axilla: No adenopathy of concern Left breast: Multi-positional exam fibrocystic changes no dominant masses or nodules of concern Left axilla: No adenopathy of concern Assessment and Plan Assessment: Impression: Probable chronic abscess right periareolar area Possible sebaceous cyst in the right periareolar region Plan: Bilateral mammogram and right breast ultrasound done on 09-13-22 BIRAD 1 Resection of chronic abscess site/ possible sebaceous cyst right breast CC: Dr. Arielle Mueller
== END ==
LOC: WWCWWP 11:10
PROVIDERS: ATTEND Surgery
DX: N64.52 Nipple discharge (principal); N61.1 Abscess of the breast and nipple; Z80.3 Family history of malignant neoplasm of breast; E11.9 Type 2 diabetes mellitus without complications; J44.9 Chronic obstructive pulmonary disease, unspecified; F31.9 Bipolar disorder, unspecified; F43.10 Post-traumatic stress disorder, unspecified; F41.9 Anxiety disorder, unspecified; M54.50 Low back pain, unspecified; G40.909 Epilepsy, unspecified, not intractable, without status epilepticus; E78.5 Hyperlipidemia, unspecified; F17.210 Nicotine dependence, cigarettes, uncomplicated; G47.30 Sleep apnea, unspecified; I11.0 Hypertensive heart disease with heart failure; I50.9 Heart failure, unspecified; K21.9 Gastro-esophageal reflux disease without esophagitis; M19.90 Unspecified osteoarthritis, unspecified site; Z80.1 Family history of malignant neoplasm of trachea, bronchus and lung; N63.10 Unspecified lump in the right breast, unspecified quadrant; K76.9 Liver disease, unspecified; F12.90 Cannabis use, unspecified, uncomplicated; Z99.89 Dependence on other enabling machines and devices; Z86.718 Personal history of other venous thrombosis and embolism; Z83.3 Family history of diabetes mellitus; Z82.49 Family history of ischemic heart disease and other diseases of the circulatory system; Z90.49 Acquired absence of other specified parts of digestive tract; Z88.8 Allergy status to other drugs, medicaments and biological substances; Z79.890 Hormone replacement therapy; Z91.048 Other nonmedicinal substance allergy status; Z91.040 Latex allergy status; Z91.018 Allergy to other foods; Z79.899 Other long term (current) drug therapy; Z79.51 Long term (current) use of inhaled steroids; Z79.84 Long term (current) use of oral hypoglycemic drugs

== ENCOUNTER → 2022-12-14 | Outpatient (CLI) | payer OTHER ==
--- NOTE | 2022-12-14 13:38 | P.PN ---
Subjective DATE: 12/14/2022 FOLLOW UP VISIT. Patient with obstructive sleep apnea hypopnea syndrome return to sleep center for follow-up visit. Information from previous visit have been reviewed. Patient is using PAP equipment every night for the whole night, getting PAP supplies in time. The patient does not have significant problems with the mask, PAP unit and humidification. [place] sleepiness scale is increased to 15. I checked information from PAP unit. PAP unit pressure 7-15, average 14.1 cm H2O. Usage is 80 % for more then 4 hours, average 5.7 hours per night. Leak is in perfect range 0 l/m. Apnea Hypopnea Index is 1.2, which is normal. MEDICATIONS:1. Levothyroxine 2. Atorvastatin 3. clonidine 4. Omeprazole 5. Lisinopril 6. Furosemide 7. Wellbutrin During physical exam: GENERAL: A pleasant patient without any distress. VITAL SIGNS: BP 117/75, HR 85, RR 16 , weight 224.0, temperature 97.1, oxygen saturation at room air 98 % . HEENT: PERRLA, EOMI.low position of soft palate, Mall[place]ati 4 . NECK: Supple. No JVD. LUNGS: Clear to percussion and to auscultation. Good air exchange. No wheezing or rhonchi. HEART: S1, S2 regular. ABDOMEN: Soft and nontender.[] EXTREMITIES: No clubbing or cyanosis. SECURITY CONTROL ROOM OFFICER: Awake, alert, and oriented x3. No focal deficit. Impressions: 1. Obstructive sleep apnea-hypopnea syndrome. Patient demonstrated good compliance with treatment, benefiting from treatment. sometimes patient felt that is not enough pressure at the moment when she started to use CPAP equipment . Minimal pressure was adjusted to 9 and patient feels comfortable with this level of pressure to start. Maximal pressure is the same 15 cm of water. 2. obesity, BMI 38.2. 3. History of anxiety. 4. Hypothyroidism secondary to thyroidectomy for Graves' disease. 5. History of migraines 6. Hyperlipidemia. 7. Status post cholecystectomy. 8. Status post right shoulder surgery. Plan: 1. Continue using PAP equipment every night for the whole night. 2. To change air filter at least 1-2 times per month. 3. PAP unit should stay lower then position of the head. 4. Advised patient to remove all remaining water from humidifier canister daily and make it dry after each usage. Refill canister with fresh distilled water before each usage. 5. Sleep hygiene with regular time in bed for at least 8 hours. 6. Precautions related to driving. No driving if feel any sleepiness. 7. I will maintain prescription for PAP supplies including mask, tube, filters. 8. Watching and losing weight. 9. Follow up visit in 6 months or earlier if patient has any problems. Thank you very much for allowing me to participate in the management of your patient. Stephen Chiu MD, PhD, FAASM. Diplomat of [place] [employer], Sleep Medicine Board by [place] [employer] Director Case Management of [facility] [place]
== END ==
LOC: 3 N SLEEP 13:02
PROVIDERS: ATTEND Internal Medicine
DX: G47.33 Obstructive sleep apnea (adult) (pediatric) (principal); E66.9 Obesity, unspecified; E05.00 Thyrotoxicosis with diffuse goiter without thyrotoxic crisis or storm; E78.5 Hyperlipidemia, unspecified; E89.0 Postprocedural hypothyroidism; F41.9 Anxiety disorder, unspecified; Z68.38 Body mass index [BMI] 38.0-38.9, adult; Z90.49 Acquired absence of other specified parts of digestive tract; Z98.890 Other specified postprocedural states; Z86.69 Personal history of other diseases of the nervous system and sense organs; Z99.89 Dependence on other enabling machines and devices; Z79.890 Hormone replacement therapy; Z91.048 Other nonmedicinal substance allergy status; Z91.040 Latex allergy status; Z91.018 Allergy to other foods; Z88.8 Allergy status to other drugs, medicaments and biological substances
CPT/HCPCS: 99212

== ENCOUNTER 2022-12-20 06:35 | Day surgery (SDC) | payer OTHER ==
[2022-12-13 12:12] VITALS: BMI 38.0
--- NOTE | 2022-12-15 13:33 | P.PN ---
Subjective Progress Note Date: 12/15/22 Principal diagnosis: chronic abscess/ possible sebaceous cyst right breast Chronic draining site right nipple areolar area recurrent breasst abcesses Qi is a 56 year old white female seen in consultation for Lina Callaway regarding multiple abcesses in the breast. Patient has had 2 right breast excisional biopsies in 1987 and 1996. Those were done for benign cyst or abscess drainage. The first surgery was in [place] and the second surgery was in [place]. She did not have any cancer. The patient states since 1996 every several weeks she develops swelling of the breast near the nipple areolar complex on the right and then drainage either through a site near the areolar or through the nipple. She has not had any fever or chills. She had a bilateral mammogram and a right breast ultrasound on 09-13-22. This was BIRAD 1. Caffeine: 2 coffee/day, soda nicotine: 15 cigarettes/day chocolate: weekly BCP: none Family History: maternal grandmother: breast cancer maternal aunt: breast cancer father: cancer ? type mother: lung cancer Hormonal History: menarche: 9 breast fed: yes, age at first : 17 menopause: 35 hormones: none Surgical History: breast surgery shoulder surgery lipoma removed tubaligation gallbladder Medical History: back pain COPD skizophrenic bipolar PTSD anxiety/panic attacks seizures in the past Social History: nicotine: As per HPI Alcohol: none, stopped 65 days ago used to black out drugs: none, used to used them stopped 65 days ago - Constitutional Constitutional: Denies chills, Denies fever - EENT Eyes: denies blurred vision, denies pain Ears: bilateral: decreased hearing, tinnitus Ears, nose, mouth and throat: Reports headache - Breasts Breasts: bilateral: as per HPI - Cardiovascular Cardiovascular: Reports shortness of breath, Denies chest pain - Respiratory Respiratory: Reports cough - Gastrointestinal Comment: hiatal hernia Gastrointestinal: Denies abdominal pain, Denies diarrhea, Denies nausea, Denies vomiting - Genitourinary (Female) Genitourinary: Denies dysuria, Denies hematuria - Menstruation Menstruation: Reports postmenopausal - Musculoskeletal Musculoskeletal: Reports myalgias - Integumentary Integumentary: Reports as per HPI - Neurological Neurological: Reports numbness, Reports weakness - Psychiatric Psychiatric: Reports as per HPI, Reports anxiety, Reports depression - Endocrine Endocrine: Reports fatigue, Reports weight change - Hematologic/Lymphatic Comment: none - Allergic/Immunologic Allergic/Immunologic: Reports seasonal allergies Past Medical History Past Medical History: Asthma, Heart Failure, COPD, Deep Vein Thrombosis (DVT), GERD/Reflux, Hearing Disorder / Deafness, Hyperlipidemia, Hypertension, Liver Disease, Osteoarthritis (OA), Pneumonia, Seizure Disorder, Sleep Apnea/CPAP/BIPAP, Thyroid Disorder Additional Past Medical History / Comment(s): Hx BLOOD CLOT LEFT ARM, GRAVES DISEASE, CPAP use, IBS, difficulty swallowing, hx Hepatitis C with treatment in 2018, short term memory loss, hard of hearing, hx seizures, "none in many yrs", "Borderline Diabetic." History of Any Multi-Drug Resistant Organisms: MRSA Date of last positivie culture/infection: 2017 MDRO Source:: UNDER THE RIGHT BREAST Past Surgical History: Breast Surgery, Cholecystectomy, Orthopedic Surgery, Tubal Ligation Additional Past Surgical History / Comment(s): RIGHT BREAST SURGERY X2(cyst/abscess), multiple lipomas removed from right shoulder and X2 from right arm, thyroidectomy. Past Anesthesia/Blood Transfusion Reactions: No Reported Reaction Past Psychological History: Anxiety, Bipolar, Depression, PTSD, Schizoaffective Disorder Smoking Status: Current every day smoker Past Alcohol Use History: Abuse Additional Past Alcohol Use History / Comment(s): STARTED SMOKING AT AGE 5 QUIT ON AND OFF (TRYING TO QUIT NOW), 1/2 PPD. HISTORY OF ALCOHOL ABUSE NONE IN OVER ONE YEAR. Past Drug Use History: Cocaine, Marijuana Additional Drug Use History / Comment(s): No Marijuana in over a yr. - Past Family History Mother Family Medical History: Cancer, Deep Vein Thrombosis (DVT) Father Family Medical History: Cancer Brother(s) Family Medical History: Diabetes Mellitus Sister(s) Family Medical History: Myocardial Infarction ([place]) Medications and Allergies Home Medications Medication Instructions Recorded Confirmed Type Acetaminophen Tab [Tylenol] 650 mg PO Q6HR PRN 30 Days #240 tab 06/24/22 08/19/22 Rx Albuterol Inhaler [Ventolin Hfa 1 puff INHALATION RT-QID PRN 30 06/24/22 08/19/22 Rx Inhaler] Days #1 each Atorvastatin Calcium [Lipitor] 40 mg PO HS 30 Days #30 tab 06/24/22 08/19/22 Rx Furosemide [Lasix] 20 mg PO DAILY 30 Days #30 tab 03/10/23 05/05/23 Rx Ibuprofen 600 mg PO Q8H PRN 30 Days #90 tab 06/24/22 08/19/22 Rx Lurasidone [Latuda] 80 mg PO 1800 30 Days #30 tab 06/24/22 08/19/22 Rx Omeprazole 40 mg PO DAILY 30 Days #30 cap 06/24/22 08/19/22 Rx Pregabalin [Lyrica] 150 mg PO BID 14 Days #28 cap 06/24/22 08/19/22 Rx Vortioxetine Hydrobromide 20 mg PO HS 30 Days #30 tab 06/24/22 08/19/22 Rx [Trintellix] hydrOXYzine HCL [Atarax] 50 mg PO TID 30 Days #90 tab 06/24/22 08/19/22 Rx lisinopriL [Prinivil] 20 mg PO DAILY 30 Days #30 tab 06/24/22 08/19/22 Rx valACYclovir HCL [Valacyclovir] 500 mg PO DAILY 30 Days #30 tab 06/24/22 08/19/22 Rx Cyclobenzaprine [Flexeril] 10 mg PO HS 08/19/22 08/19/22 History Deutetrabenazine [Austedo] 9 mg PO DAILY 08/19/22 08/19/22 History Levothyroxine Sodium [Synthroid] 150 mcg PO DAILY 08/19/22 08/19/22 History oxyCODONE-APAP 10-325MG [Percocet 1 tab PO Q8HR PRN 08/19/22 08/19/22 History 10-325 mg] Allergies Allergy/AdvReac Type Severity Reaction Status Date / Time adhesive tape Allergy Itching Verified 08/19/22 14:14 almond Allergy Swelling Verified 08/19/22 14:14 aripiprazole [From Abilify] Allergy Swelling Verified 08/19/22 14:14 OF THROAT guaifenesin [From Mucinex] Allergy Anaphylaxis Verified 08/19/22 14:14 haloperidol [From Haldol] Allergy Swelling Verified 08/19/22 14:14 OF THROAT latex Allergy Swelling/it Verified 08/19/22 14:14 armand Mushroom Allergy Swelling Verified 08/19/22 14:14 tree nut [Pecan] Allergy Swelling Verified 08/19/22 14:14 watermelon Allergy Swelling Verified 08/19/22 14:14 Objective - Constitutional General appearance: Present: cooperative - EENT Eyes: Present: EOMI ENT: Present: hearing grossly normal - Neck Neck: Present: normal ROM - Respiratory Respiratory: bilateral: CTA - Cardiovascular Heart sounds: normal: S1, S2 - Gastrointestinal General gastrointestinal: Present: soft - Integumentary Integumentary: Present: normal turgor - Musculoskeletal Musculoskeletal: Present: gait normal - Psychiatric Psychiatric: Present: A&O x's 3, appropriate affect, intact judgment & insight - Additional findings Additional findings: RA: sports bra XXX inspection: Bilateral grade 2 ptosis Palpation: Right breast: Multi-positional exam fibrocystic changes, in the 12:30 position in the near nipple area there is a small punctate opening that the patient states has drainage at times, she is able to express sebum-like material from the nipple area Right axilla: No adenopathy of concern Left breast: Multi-positional exam fibrocystic changes no dominant masses or nodules of concern Left axilla: No adenopathy of concern Assessment and Plan Assessment: Impression: Probable chronic abscess right periareolar area Possible sebaceous cyst in the right periareolar region Plan: Bilateral mammogram and right breast ultrasound done on 09-13-22 BIRAD 1 Resection of chronic abscess site/ possible sebaceous cyst right breast CC: Dr. Arielle Mueller
[~2022-12-20 06:35] MED LIST changes: -ACETAMINOPHEN TAB 500 MG TAB PO PRN
[2022-12-20] MEDS ORDERED: HYDROmorphone 0.5 MG/0.5 ML SYRINGE IVP PRN (07:05)
[2022-12-20] MEDS ORDERED: LIDOCAINE 1% (10MG/ML) FOR IV START INTRADERMA PRN (07:05)
[2022-12-20] MEDS ORDERED: ONDANSETRON 4 MG/2 ML VIAL IVP ONE (07:05)
[2022-12-20] MEDS ORDERED: LACTATED RINGERS 1,000 ML IV SCH (07:05)
[2022-12-20 07:43] LABS: Glucose,Whole Blood 109 mg/dL (70-110)
[2022-12-20] MEDS ORDERED: DEXAMETHASONE SOD PHOSPHATE 4 MG/ML 1 ML VIAL IVP ONE (07:47)
[2022-12-20] MEDS ORDERED: PROPOFOL 10 MG/ML 20 ML VIAL IV ONE (08:46)
[2022-12-20] MEDS ORDERED: PHENYLEPHRINE-0.9% NACL SYG 1,000 MCG/10 ML SYRINGE ONE (08:46)
[2022-12-20] MEDS ORDERED: LIDOCAINE 2% INJ 20 MG/ML (2 ML VIAL) ONE (08:46)
[2022-12-20] MEDS ORDERED: MIDAZOLAM 2 MG/2 ML VIAL ONE (08:46)
[2022-12-20] MEDS ORDERED: fentaNYL (PF) 50 MCG/ML 2 ML AMP ONE (08:46)
[2022-12-20] MEDS ORDERED: SODIUM CHLORIDE 0.9% 50 ML with ceFAZolin 2,000 MG IV ONE ×2 (08:50)
--- NOTE | 2022-12-20 09:24 | P.OP ---
Date of Procedure: 12/20/22 Preoperative Diagnosis: Chronic abscess site right areolar complex Postoperative Diagnosis: Same Procedure(s) Performed: Excision of chronic abscess site Anesthesia: BENNY Surgeon: Ashley Bhatt Estimated Blood Loss (ml): 3 IV fluids (ml): 400 Pathology: other (Tissue right nipple areolar complex) Condition: stable Disposition: same day Indications for Procedure: Chronic abscess right breast Operative Findings: Abscess site right breast, no active infection today Description of Procedure: The patient was brought to the operative suite and following induction of anesthesia the right breast was prepped and draped in a sterile fashion. A site of dimpling in the chronic abscess site was prepped and draped in a sterile fashion. Wide excision of this site was performed. The area of resection was approximately 8 mm x 4 mm. The wound was well irrigated. Cultures were obtained. The deep tissues were closed using 3-0 Vicryl suture. The skin was closed using nylon suture. The patient tolerated procedure in stable condition. All instrument and sponge counts were correct at the end of the case.
--- NOTE | 2022-12-20 09:26 | P.DS ---
Providers Attending physician: Ashley Bhatt Primary care physician: Junaid Domínguez MD Plan - Discharge Summary Discharge Rx Participant: No New Discharge Prescriptions: New HYDROcodone/APAP 5-325MG [Waves 5] 1 - 2 each PO Q6HR PRN #10 tab PRN Reason: Pain No Action Furosemide [Lasix] 20 mg PO DAILY 30 Days #30 tab valACYclovir HCL [Valacyclovir] 500 mg PO DAILY 30 Days #30 tab Levothyroxine Sodium [Synthroid] 150 mcg PO QAM Umeclidinium Brm/Vilanterol Tr [Anoro Ellipta 62.5-25 Mcg INH] 1 puff INHALATION DAILY Albuterol Inhaler [Ventolin Hfa Inhaler] 2 puff INHALATION RT-QID PRN PRN Reason: Shortness Of Breath cloNIDine HCL [Catapres] 0.2 mg PO HS Albuterol Nebulized [Ventolin Nebulized] 2.5 mg INHALATION Q6H PRN PRN Reason: sob Liraglutide [Saxenda] 3 mg SQ DAILY hydrOXYzine HCL [Atarax] 50 mg PO TID 30 Days #90 tab Atorvastatin Calcium [Lipitor] 40 mg PO HS 30 Days #30 tab Pregabalin [Lyrica] 150 mg PO BID 14 Days #28 cap Vortioxetine Hydrobromide [Trintellix] 20 mg PO HS 30 Days #30 tab Deutetrabenazine [Austedo] 9 mg PO QAM lisinopriL [Prinivil] 20 mg PO QAM Omeprazole 40 mg PO QAM Lurasidone [Latuda] 80 mg PO HS Discharge Medication List Atorvastatin Calcium [Lipitor] 40 mg PO HS 30 Days #30 tab 06/24/22 [Rx] Furosemide [Lasix] 20 mg PO DAILY 30 Days #30 tab 06/24/22 [Rx] Pregabalin [Lyrica] 150 mg PO BID 14 Days #28 cap 06/24/22 [Rx] Vortioxetine Hydrobromide [Trintellix] 20 mg PO HS 30 Days #30 tab 06/24/22 [Rx] hydrOXYzine HCL [Atarax] 50 mg PO TID 30 Days #90 tab 06/24/22 [Rx] valACYclovir HCL [Valacyclovir] 500 mg PO DAILY 30 Days #30 tab 06/24/22 [Rx] Deutetrabenazine [Austedo] 9 mg PO QAM 08/19/22 [History] Levothyroxine Sodium [Synthroid] 150 mcg PO QAM 08/19/22 [History] Albuterol Inhaler [Ventolin Hfa Inhaler] 2 puff INHALATION RT-QID PRN 08/25/22 [History] Albuterol Nebulized [Ventolin Nebulized] 2.5 mg INHALATION Q6H PRN 08/25/22 [History] Lurasidone [Latuda] 80 mg PO HS 08/25/22 [History] Omeprazole 40 mg PO QAM 08/25/22 [History] Umeclidinium Brm/Vilanterol Tr [Anoro Ellipta 62.5-25 Mcg INH] 1 puff INHALATION DAILY 08/25/22 [History] cloNIDine HCL [Catapres] 0.2 mg PO HS 08/25/22 [History] lisinopriL [Prinivil] 20 mg PO QAM 08/25/22 [History] Liraglutide [Saxenda] 3 mg SQ DAILY 12/13/22 [History] HYDROcodone/APAP 5-325MG [Waves 5] 1 - 2 each PO Q6HR PRN #10 tab 12/20/22 [Rx] Follow up Appointment(s)/Referral(s): Ashley Bhatt MD [STAFF PHYSICIAN] - 12/30/22 11:40 am Activity/Diet/Wound Care/Special Instructions: Do not drive for 24 hours after discharge, or if taking narcotic pain medicine may shower after 48 hours Discharge Disposition: HOME SELF-CARE
[2022-12-20 09:41] VITALS: TEMP 97
[2022-12-20] MEDS ORDERED: HYDROmorphone 0.5 MG/0.5 ML SYRINGE IVP ONE (09:46)
[2022-12-20 10:09] LABS: Glucose,Whole Blood 117 mg/dL (70-110)
[2022-12-20] MEDS ORDERED: HYDROcodone/APAP 5-325MG 1 EACH TAB ONE (10:38)
[2022-12-20] MEDS ORDERED: HYDROcodone/APAP 5-325MG 1 EACH TAB PO ONE (10:40)
[2022-12-20 10:46] VITALS: RESP 15
[2022-12-20 10:56] VITALS: BP 100/64; PULSE 90
== END 2022-12-20 11:06 | disposition home or self-care (01) ==
LOC: OR 06:35
PROVIDERS: ATTEND Surgery
DX: N61.1 Abscess of the breast and nipple (principal); J44.9 Chronic obstructive pulmonary disease, unspecified; F41.9 Anxiety disorder, unspecified; F31.9 Bipolar disorder, unspecified; I50.9 Heart failure, unspecified; I11.0 Hypertensive heart disease with heart failure; M19.90 Unspecified osteoarthritis, unspecified site; E78.5 Hyperlipidemia, unspecified; G40.909 Epilepsy, unspecified, not intractable, without status epilepticus; G47.30 Sleep apnea, unspecified; J18.9 Pneumonia, unspecified organism; E07.9 Disorder of thyroid, unspecified; F17.210 Nicotine dependence, cigarettes, uncomplicated; F12.90 Cannabis use, unspecified, uncomplicated; Z80.3 Family history of malignant neoplasm of breast; Z80.1 Family history of malignant neoplasm of trachea, bronchus and lung; Z98.890 Other specified postprocedural states; Z86.718 Personal history of other venous thrombosis and embolism; Z86.69 Personal history of other diseases of the nervous system and sense organs; Z90.49 Acquired absence of other specified parts of digestive tract; Z83.3 Family history of diabetes mellitus; Z82.49 Family history of ischemic heart disease and other diseases of the circulatory system; Z88.8 Allergy status to other drugs, medicaments and biological substances; Z91.040 Latex allergy status; Z91.018 Allergy to other foods; Z79.624 Long term (current) use of inhibitors of nucleotide synthesis; Z79.890 Hormone replacement therapy; Z79.891 Long term (current) use of opiate analgesic; Z79.51 Long term (current) use of inhaled steroids; Z79.899 Other long term (current) drug therapy; Z79.83 Long term (current) use of bisphosphonates
CPT/HCPCS: 88304; 87070; 87205; 87075; 19120; J2250; J1100; J2405; J0690; J3010; J2704; J1170; J1644; J2001; J2371

== ENCOUNTER 2023-07-06 15:06 | Inpatient (IN) | payer MEDICAID, OTHER ==
--- NOTE | 2023-07-06 15:40 | ED ---
General Adult HPI - General Chief complaint: Psychiatric Symptoms Stated complaint: Mental Health Time Seen by Provider: 07/06/23 15:25 Source: patient, RN notes reviewed, old records reviewed Mode of arrival: ambulatory Limitations: no limitations - History of Present Illness Initial comments: Is a 57-year-old female who presents to the emergency department stating that she has a past medical history significant for PTSD and schizoaffective disorder. Patient states she is on medicines but she does not take them regularly. Patient states she saw her psychiatrist today and the psychiatrist recommended she come into the emergency department. Patient states she stopped drinking about a month and a half ago and she stopped taking crack about a month and a half ago. Patient states has been hearing voices for the last day and a half and been feeling suicidal. Patient states the voices have been telling her to kill herself but she has made no effort to kill herself. Patient states there is no specific plan. Patient denies any homicidal ideation. Patient denies any physical complaints today except for reproducible chest pain when she pushes the right side of her chest - Related Data Home Medications Medication Instructions Recorded Confirmed Levothyroxine Sodium [Synthroid] 175 mcg PO DAILY 08/19/22 07/06/23 Albuterol Inhaler [Ventolin Hfa 1 puff INHALATION RT-QID PRN 08/25/22 07/06/23 Inhaler] Omeprazole 40 mg PO DAILY 08/25/22 07/06/23 lisinopriL [Prinivil] 20 mg PO DAILY 08/25/22 07/06/23 Liraglutide [Saxenda] 3 mg SQ Q3D 12/13/22 07/06/23 Deutetrabenazine [Austedo] 12 mg PO DAILY 01/06/23 07/06/23 Propranolol [Inderal] 10 mg PO BID PRN 07/06/23 07/06/23 Ziprasidone [Geodon] 60 mg PO DAILY 07/06/23 07/06/23 Previous Rx's Medication Instructions Recorded Atorvastatin Calcium [Lipitor] 40 mg PO HS 30 Days #30 tab 06/24/22 Pregabalin [Lyrica] 150 mg PO BID 14 Days #28 cap 06/24/22 hydrOXYzine HCL [Atarax] 50 mg PO TID 30 Days #90 tab 06/24/22 valACYclovir HCL [Valacyclovir] 500 mg PO DAILY 30 Days #30 tab 06/24/22 Allergies Allergy/AdvReac Type Severity Reaction Status Date / Time adhesive tape Allergy Itching Verified 07/06/23 17:47 almond Allergy Anaphylaxis Verified 07/06/23 17:47 aripiprazole [From Abilify] Allergy Anaphylaxis Verified 07/06/23 17:47 guaifenesin [From Mucinex] Allergy Anaphylaxis Verified 07/06/23 17:47 haloperidol [From Haldol] Allergy Anaphylaxis Verified 07/06/23 17:47 latex Allergy Swelling/it Verified 07/06/23 17:47 armand Mushroom Allergy Rash/Hives Verified 07/06/23 17:47 tree nut [Pecan] Allergy Rash/Hives Verified 07/06/23 17:47 watermelon Allergy Rash/Hives Verified 07/06/23 17:47 Review of Systems ROS Statement: Those systems with pertinent positive or pertinent negative responses have been documented in the HPI. ROS Other: All systems not noted in ROS Statement are negative. Past Medical History Past Medical History: Asthma, Heart Failure, COPD, Diabetes Mellitus, Deep Vein Thrombosis (DVT), GERD/Reflux, Hearing Disorder / Deafness, Hyperlipidemia, Hypertension, Liver Disease, Osteoarthritis (OA), Pneumonia, Seizure Disorder, Sleep Apnea/CPAP/BIPAP, Thyroid Disorder Additional Past Medical History / Comment(s): Hx BLOOD CLOT LEFT ARM, GRAVES DISEASE, CPAP use, IBS, difficulty swallowing, hx Hepatitis C with treatment in 2018, short term memory loss, hard of hearing, hx seizures, "none in many yrs", History of Any Multi-Drug Resistant Organisms: MRSA Date of last positivie culture/infection: 2016 MDRO Source:: UNDER THE RIGHT BREAST Past Surgical History: Breast Surgery, Cholecystectomy, Orthopedic Surgery, Tubal Ligation Additional Past Surgical History / Comment(s): RIGHT BREAST SURGERY X2(cyst/abscess), multiple lipomas removed from right shoulder and X2 from right arm AND LT ARM, thyroidectomy. Past Anesthesia/Blood Transfusion Reactions: No Reported Reaction Additional Past Anesthesia/Blood Transfusion Reaction / Comment(s): no hx blood transfusions Past Psychological History: Anxiety, Bipolar, Depression, PTSD, Schizoaffective Disorder Smoking Status: Current every day smoker Past Alcohol Use History: Abuse Past Drug Use History: Marijuana - Past Family History Mother Family Medical History: Cancer, Deep Vein Thrombosis (DVT) Father Family Medical History: Cancer Brother(s) Family Medical History: Diabetes Mellitus Sister(s) Family Medical History: Myocardial Infarction (DC) General Exam - General Exam Comments Initial Comments: GENERAL: Patient is well-developed and well-nourished. Patient is nontoxic and well- hydrated and is in no acute distress. ENT: Neck is soft and supple. No significant lymphadenopathy is noted. Oropharynx is clear. Moist mucous membranes. Neck has full range of motion without eliciting any pain. EYES: The sclera were anicteric and conjunctiva were pink and moist. Extraocular movements were intact and pupils were equal round and reactive to light. Eyelids were unremarkable. PULMONARY: Unlabored respirations. Good breath sounds bilaterally. No audible rales rhonchi or wheezing was noted. CARDIOVASCULAR: There is a regular rate and rhythm without any murmurs gallops or rubs. Patient has some reproducible chest pain on the right side anteriorly. Patient states not tender and less you are pressing on it. ABDOMEN: Soft and nontender with normal bowel sounds. SKIN: Skin is clear with no lesions or rashes and otherwise unremarkable. NEUROLOGIC: Patient is alert and oriented x3. Cranial nerves II through XII are grossly intact. Motor and sensory are also intact. Normal speech, volume and content. Symmetrical smile. MUSCULOSKELETAL: Normal extremities with adequate strength and full range of motion. LYMPHATICS: No significant lymphadenopathy is noted PSYCHIATRIC: Patient states she is suicidal and she is hearing voices for the last day and a half Limitations: no limitations Course Vital Signs 07/06/23 15:26 Temperature 98.1 F Pulse Rate 85 Respiratory 16 Rate Blood Pressure 129/84 O2 Sat by Pulse 98 Oximetry Medical Decision Making - Medical Decision Making EKG is interpreted by myself EKG shows a sinus rhythm at 86 bpm [place] 147 QRS 77 QT interval 344 QTc is 387. Patient's EKG shows no ST segment elevation or depression. Was pt. sent in by a medical professional or institution (, PA, PROFESSOR OF POULTRY SCIENCE, urgent care, hospital, or longterm...) When possible be specific @ -No Did you speak to anyone other than the patient for history (EMS, parent, family, police, friend...)? What history was obtained from this source @ -No Did you review nursing and triage notes (agree or disagree)? Why? @ -I reviewed and agree with nursing and triage notes Were old charts reviewed (outside hosp., previous admission, EMS record, old EKG, old radiological studies, urgent care reports/EKG's, longterm records)? Report findings @ -No old charts were reviewed Differential Diagnosis (chest pain, altered mental status, abdominal pain women, abdominal pain men, vaginal bleeding, weakness, fever, dyspnea, syncope, headache, dizziness, GI bleed, back pain, seizure, CVA, palpatations, mental health, musculoskeletal)? @ -Differential Mental Health Depression, anxiety, bipolar, psychosis, schizophrenia, borderline personality, situational depression, adjustment disorder, behavioral disorder, brain tumor, malingering, substance abuse, encephalopathy, medication reaction, dementia, hypothyroidism, degenerative neurologic disorder, lupus.... This is not meant to be all-inclusive list EKG interpreted by me (3pts min.). @ -As above X-rays interpreted by me (1pt min.). @ -None done CT interpreted by me (1pt min.). @ -None done U/S interpreted by me (1pt. min.). @ -None done What testing was considered but not performed or refused? (CT, X-rays, U/S, labs)? Why? @ -None What meds were considered but not given or refused? Why? @ -None Did you discuss the management of the patient with other professionals (professionals i.e. , PA, PROFESSOR OF POULTRY SCIENCE, lab, RT, psych nurse, high school social science teacher, rice dryer mechanic, teacher, community liaison officer, trimming caser)? Give summary @ -EPS evaluated the patient it was determined the patient needed to stay Was smoking cessation discussed for >3mins.? @ -No Was critical care preformed (if so, how long)? @ -No Were there social determinants of health that impacted care today? How? (Homelessness, low income, unemployed, alcoholism, drug addiction, transportation, low edu. Level, literacy, decrease access to med. care, [facility], rehab)? @ -No Was there de-escalation of care discussed even if they declined (Discuss DNR or withdrawal of care, Hospice)? DNR status @ -No What co-morbidities impacted this encounter? (DM, HTN, Smoking, COPD, CAD, Cancer, CVA, ARF, Chemo, Hep., AIDS, mental health diagnosis, sleep apnea, morbid obesity)? @ -None Was patient admitted / discharged? Hospital course, mention meds given and route, prescriptions, significant lab abnormalities, going to OR and other pertinent info. @ -Patient states she was suicidal and she had voices telling her that she needed to kill herself so patient will be admitted to the psych floor. Undiagnosed new problem with uncertain prognosis? @ -No Drug Therapy requiring intensive monitoring for toxicity (Heparin, Nitro, Insulin, Cardizem)? @ -No Were any procedures done? @ -No Diagnosis/symptom? @ -Suicidal ideations, auditory hallucinations Acute, or Chronic, or Acute on Chronic? @ -Acute Uncomplicated (without systemic symptoms) or Complicated (systemic symptoms)? @ -Complicated Side effects of treatment? @ -No Exacerbation, Progression, or Severe Exacerbation? @ -No Poses a threat to life or bodily function? How? (Chest pain, USA, DC, pneumonia, PE, COPD, DKA, ARF, appy, cholecystitis, CVA, Diverticulitis, Homicidal, Suicidal, threat to staff... and all critical care pts) @ -Yes if we were to let the patient go home she may kill her self - Lab Data Lab Results 07/06/23 Range/Units 16:36 Urine Opiates Screen Not Detected (NotDetected) Ur Oxycodone Screen Not Detected (NotDetected) Urine Methadone Screen Not Detected (NotDetected) Ur Barbiturates Screen Not Detected (NotDetected) U Tricyclic Antidepress Not Detected (NotDetected) Ur Phencyclidine Scrn Not Detected (NotDetected) Ur Amphetamines Screen Not Detected (NotDetected) U Methamphetamines Scrn Not Detected (NotDetected) U Benzodiazepines Scrn Not Detected (NotDetected) Urine Cocaine Screen Not Detected (NotDetected) U Marijuana (THC) Screen Not Detected (NotDetected) Disposition Clinical Impression: Suicidal ideation, Auditory hallucinations Disposition: ADMITTED IP TO THIS HOSP Referrals: Junaid Domínguez MD [Primary Care Provider] - 1-2 days Time of Disposition: 19:34
[2023-07-06 17:07] LABS: Amphetamine Screen,Urine Not Detected (NotDetected); Barbiturate Screen,Urine Not Detected (NotDetected); Benzodiazepines Screen,Urine Not Detected (NotDetected); Cocaine Screen,Urine Not Detected (NotDetected); Methadone Screen, Urine Not Detected (NotDetected); Opiate Screen,Urine Not Detected (NotDetected); Oxycodone Screen, Urine Not Detected (NotDetected); Phencyclidine Screen,Urine Not Detected (NotDetected); Tricyclic Antidepressant,Urine Not Detected (NotDetected); Urn Cannabinoid Scrn Not Detected (NotDetected)
[2023-07-06] MEDS: LORazepam 1 MG TAB PO STA (19:35)
[2023-07-06 19:58] LABS: Appearance,Urine Clear (Clear); Bilirubin,Urine Negative (Negative); Blood,Urine Negative (Negative); Color,Urine Yellow; Glucose,Urine (UA) Negative (Negative); Ketones,Urine Negative (Negative); Leukocyte Esterase,Urine Negative (Negative); Nitrite,Urine Negative (Negative); Protein,Urine Negative (Negative); Specific Gravity,Urine 1.021 (1.001-1.035); Urobilinogen,Urine <2.0 mg/dL (<2.0)
[2023-07-06] MEDS ORDERED: MAG HYDROX/AL HYDROX/SIMETH 355 ML BOTTLE PO PRN (20:42)
[2023-07-06] MEDS ORDERED: flUPHENAZine 2.5 MG/ML (MDV) 10 ML VIAL IM PRN (20:42)
[2023-07-06] MEDS ORDERED: MAGNESIUM HYDROXIDE 2,400 MG/30 ML CUP PO PRN (20:42)
[2023-07-06] MEDS ORDERED: LORazepam 2 MG/ML INJ IM PRN (20:42)
[2023-07-06] MEDS ORDERED: LORazepam 1 MG TAB PO PRN (20:42)
[2023-07-06] MEDS ORDERED: ALBUTEROL INHALER 60 PUFF/8 GM INHALER (MHU) INHALATION PRN (20:49)
[2023-07-06] MEDS ORDERED: PROPRANOLOL 10 MG TAB PO PRN (20:49)
[2023-07-06] MEDS: ATORVASTATIN 40 MG TAB PO SCH (21:43)
[2023-07-06] MEDS: PREGABALIN 75 MG CAP PO SCH (21:44)
[2023-07-06] MEDS: hydrOXYzine HCL 25 MG TAB PO SCH (21:45)
[2023-07-06] MEDS ORDERED: diphenhydrAMINE 50 MG CAP PO PRN (21:50)
[2023-07-06] MEDS: ZIPRASIDONE 60 MG CAP PO SCH (21:59)
[2023-07-07] MEDS: LEVOTHYROXINE 88 MCG TAB PO SCH (06:37)
[2023-07-07] MEDS: NICOTINE 21MG/24HR PATCH TRANSDERM SCH (08:32)
[2023-07-07] MEDS: lisinopriL 20 MG TAB PO SCH (08:34)
[2023-07-07] MEDS: PANTOPRAZOLE 40 MG TABLET PO SCH (08:35)
[2023-07-07] MEDS: valACYclovir HCL 500 MG TAB PO SCH (08:36)
[2023-07-07] MEDS: ACETAMINOPHEN TAB 325 MG TAB PO PRN (08:38)
[2023-07-07] MEDS ORDERED: ZIPRASIDONE 60 MG CAP PO SCH (09:00)
[2023-07-07 09:25] LABS: Basophils % (A) 1 %; Eosinophils # (A) 0.2 k/uL (0-0.7); Eosinophils % (A) 3 %; HCT 40.3 % (34.0-46.0); Lymphocytes # (A) 2.2 k/uL (1.0-4.8); Lymphocytes % (A) 30 %; MCH 31.9 pg (25.0-35.0); MCHC 32.4 g/dL (31.0-37.0); MCV 98.4 fL (80.0-100.0); Monocytes # (A) 0.4 k/uL (0-1.0); Monocytes % (A) 6 %; Neutrophils # (A) 4.5 k/uL (1.3-7.7); Neutrophils % (A) 60 %; Platelet Count 220 k/uL (150-450); RBC 4.09 m/uL (3.80-5.40); RDW 13.1 % (11.5-15.5); WBC 7.5 k/uL (3.8-10.6)
[2023-07-07] MEDS: DOXYCYCLINE 100 MG CAP PO SCH (09:29)
[2023-07-07 11:08] LABS: ALT 15 U/L (4-34); AST 18 U/L (14-36); African American GFR (CKD) >90 (>60 ml/min/1.73 sqM); Albumin 3.8 g/dL (3.5-5.0); Alkaline Phosphatase 63 U/L (38-126); Anion Gap 7 mmol/L; Bilirubin, Delta 0.1 mg/dL (0.0-0.2); Bilirubin,Unconjugated 0.3 mg/dL (0.0-1.1); Blood Urea Nitrogen 10 mg/dL (7-17); Calcium 8.6 mg/dL (8.4-10.2); Carbon Dioxide 24 mmol/L (22-30); Chloride 111 mmol/L (98-107); Glucose 91 mg/dL (74-99); Non-African American GFR(CKD) 79 (>60 ml/min/1.73 sqM); Potassium 4.3 mmol/L (3.5-5.1); Sodium 142 mmol/L (137-145); Total Bilirubin 0.4 mg/dL (0.2-1.3); Total Protein 6.7 g/dL (6.3-8.2)
[2023-07-07] MEDS: SERTRALINE 50 MG TAB PO SCH (13:20)
--- NOTE | 2023-07-07 13:59 | P.HP ---
Psychiatric H&P - . H&P Date: 07/07/23 History & Physical: Allergies Allergy/AdvReac Type Severity Reaction Status Date / Time adhesive tape Allergy Itching Verified 07/06/23 17:47 almond Allergy Anaphylaxis Verified 07/06/23 17:47 aripiprazole [From Abilify] Allergy Anaphylaxis Verified 07/06/23 17:47 guaifenesin [From Mucinex] Allergy Anaphylaxis Verified 07/06/23 17:47 haloperidol [From Haldol] Allergy Anaphylaxis Verified 07/06/23 17:47 latex Allergy Swelling/it Verified 07/06/23 17:47 armand Mushroom Allergy Rash/Hives Verified 07/06/23 17:47 tree nut [Pecan] Allergy Rash/Hives Verified 07/06/23 17:47 watermelon Allergy Rash/Hives Verified 07/06/23 17:47 Vital Signs Temp 97.0 F L 07/07/23 08:42 Pulse 110 H 07/07/23 08:42 Resp 16 07/07/23 08:42 BP 108/71 07/07/23 08:42 Pulse Ox 97 07/07/23 08:42 FiO2 21 07/07/23 02:35 Intake & Output 07/06/23 07/07/23 07/07/23 18:59 06:59 18:59 Weight 100.698 kg 98.883 kg Laboratory Last Values Urine Color Yellow 07/06/23 16:36 Urine Appearance Clear (Clear) 07/06/23 16:36 Urine pH 6.0 (5.0-8.0) 07/06/23 16:36 Ur Specific [place] 1.021 (1.001-1.035) 07/06/23 16:36 Urine Protein Negative (Negative) 07/06/23 16:36 Urine Glucose (UA) Negative (Negative) 07/06/23 16:36 Urine Ketones Negative (Negative) 07/06/23 16:36 Urine Blood Negative (Negative) 07/06/23 16:36 Urine Nitrite Negative (Negative) 07/06/23 16:36 Urine Bilirubin Negative (Negative) 07/06/23 16:36 Urine Urobilinogen <2.0 mg/dL (<2.0) 07/06/23 16:36 Ur Leukocyte Esterase Negative (Negative) 07/06/23 16:36 Urine Opiates Screen Not Detected (NotDetected) 07/06/23 16:36 Ur Oxycodone Screen Not Detected (NotDetected) 07/06/23 16:36 Urine Methadone Screen Not Detected (NotDetected) 07/06/23 16:36 Ur Barbiturates Screen Not Detected (NotDetected) 07/06/23 16:36 U Tricyclic Antidepress Not Detected (NotDetected) 07/06/23 16:36 Ur Phencyclidine Scrn Not Detected (NotDetected) 07/06/23 16:36 Ur Amphetamines Screen Not Detected (NotDetected) 07/06/23 16:36 U Methamphetamines Scrn Not Detected (NotDetected) 07/06/23 16:36 U Benzodiazepines Scrn Not Detected (NotDetected) 07/06/23 16:36 Urine Cocaine Screen Not Detected (NotDetected) 07/06/23 16:36 U Marijuana (THC) Screen Not Detected (NotDetected) 07/06/23 16:36 Influenza Type A (PCR) Not Detected (Not Detectd) 07/06/23 19:55 Influenza Type B (PCR) Not Detected (Not Detectd) 07/06/23 19:55 RSV (PCR) Not Detected (Not Detectd) 07/06/23 19:55 SARS-CoV-2 (PCR) Not Detected (Not Detectd) 07/06/23 19:55 07/07/23 08:59 IDENTIFYING DATA: Patient is a 57-year-old female who currently lives alone with her cats in an apartment, she is , and gets social security. Had 3 children, one . HPI: Patient presented to the hospital on 07/05. As per EPS note, "Pt brought herself to the ER for increasing suicidal thoughts and depression. She reports she has been having these thoughts for the last 2 days. She states she has had a lot of stressors lately at home with a loss of a mother figure, it is her dad's birthday, she is waiting to do a back surgery and this is stressing her out. She states she saw Dr. Lynn at [facility] today and he did not think she needed to come to ER but she felt that she just needed someone to talk too. She reports that she is not feeling suicidal at this time, she reports she feels better after talking to people at the hospital. She states "I don't want to hurt me, I love me" She states "I am independent I have cats at home to take care of" She reports a lot of supports Nyla [facility] Terry. She states she also has a lot of supports at [facility]. " Upon today's assessment, patient states that the she attended recently, just reminded her of her sons , and it gave her some pretty significant depression. She claims she is feeling better today, and there is no other stressors in her life. Patient is minimizing her symptoms. Patient increasingly getting irritable during the interview, stating she does not need to be her, and she don't want to be here. Claim she just came here to talk to someone, not to be admitted.Patient claims that she has no suicidal thoughts, and hasn't in about 25-30 years. Patient was fairly evasive, minimizing her symptoms, guarded. Very poor insight and poor frustration tolerance. States her appetite is good, and that she is sleeping well. Patient denies any flight of ideas racing thoughts and increased in goal directed behavior. Patient's UDS was negative for recreational drugs, states she does smoke cigarettes. PAST PSYCHIATRIC HISTORY: Patient states that she has a history of schizoaffective disorder and polysubstance abuse. Patient is currently on latuda, prazosin and also Vistaril. patient was last admitted to the [facility] in June of 2022. She claims that she follows up at [facility] with the nurse practitioner. she overdosed once and cut herself several years ago. PMH: as per ER note ALLERGIES: as per EMR CHEMICAL DEPENDENCY HISTORY: as per HPI FAMILY PSYCHIATRIC/SUBSTANCE USE HISTORY: states that her mother has bipolar disorder and father has some form of mental illness. 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 She states that she is . She reports that she 3 times prior to her divorce. She currently lives in [place] with Raeann who she describes as a significant other/partner, Gus (Raeann's ), Renetta, and Raeann's 3 children. She also reports that there are 4 dogs and multiple cats in the home. Patient reported that she has obtained her GED and has attended some college. She does report a history of prostitution. She states that she currently receives SSI. MENTAL STATUS EXAM: General Appearance: Patient appears to be overweight,older than stated age, is alert, irritable, concrete. upset. Patient appears to have fair hygiene and grooming. Behavior: Patient is seated without any agitated behavior minimizing. Irritable, stormed out of the office Speech: Patient's speech is fluent and nonpressured. Loud at times. Demanding Mood/Affect: Patient reports their mood is depressed and anxious, affect is congruent Suicidality/Homicidality: Patient denies having any homicidal/suicidal ideation intent or plan. Though content/process: There is no evidence of any delusional thought content and thought process is linear and goal-directed. Memory and concentration: AOX3, grossly intact for the purposes of this session. Can spell "WORLD" backwards Judgment and insight: poor STRENGTHS/WEAKNESSES: strength is that patient is resilient. Weakness is that patient [has poor judgment, has a hx of drug use and is impulsive INTELLECT: average IMPRESSIONS: Suicidal Ideations Schizoaffective disorder bipolar type nicotine dependence PLAN: -Patient is admitted under voluntary status to [facility] for stabilization of psychiatric symptoms and safety. Patient has signed adult voluntary form but refused the medication consent and is placed in patient's chart. -Medications : start Zoloft 50mg daily for mood/anxiety Geodon 60 qhs for psychosis, atarax 50mg tid for anxiety, Inderal as needed for anxiety. -Ativan PRN for agitation/aggression -Patient was informed of the risks, benefits and side effects of the medication and patient verbally consented to taking the medications. Patient refused to signed med consent form and was placed in chart. -Internal Medicine consult to perform medical evaluation and physical. -NRT - nicotine patch -SW on board for discharge planning. Encourage patient to participate in groups to work on coping skills. 07/07/23 12:34 07/07/23 13:57
[2023-07-07] MEDS: IBUPROFEN 600 MG TAB PO PRN (15:41)
[2023-07-07 17:26] LABS: Chol/HDL Ratio 2.87 Ratio; LDL Cholesterol,Calculated 57.9 mg/dL (0.0-131.0)
--- NOTE | 2023-07-08 11:33 | P.PN ---
Progress Note - Text Progress Note Date: 07/08/23 Interval history: Patient was seen laying in her bed today and was directable and agreeable to speak with property underwriter. Patient claims that she is in a brighter mood today, states that her mood and anxiety been mildly improving. States that she likes the Zoloft. Claims that she was able to sleep fairly last night, denying any side effects at this time. Admits to improving appetite has been going to some groups. At this time patient denies any suicidal or homicidal ideations intent or plan. Denies any Auditory or visual hallucinations. Patient denies any side effects from the medications and has been compliant with meds. Mental status exam: General Appearance: Patient appears to be stated age is alert, directable, and cooperative. Behavior: No agitated behavior. Patient is calm and directable less irritable today, brighter affect Speech: Patient's speech is fluent and nonpressured. Mood/Affect: Mood is improving mildly, affect is congruent and constricted. Affect improving Suicidality/Homicidality: Patient denies having any suicidal or homicidal ideation intent or plan. Perceptions: Patient denies any auditory or visual hallucinations. Though content/process: There is no evidence of any delusional thought content and thought process is linear and goal-directed. Memory and concentration: AOX3, grossly intact for the purposes of this session Judgment and insight: improving mildly Assessment/Plan: Continue with current diagnosis. Patient continues to meet criteria for inpatient psychiatric admission for symptom stabilization and safety. Patient will be maintained on current psychotropic medication regimen. Monitor for medication compliance and for any psychotropic medication side effects. Will continue to monitor ongoing response to treatment. Encouraged participation in milieu.
[2023-07-09 07:47] VITALS: RESP 16
--- NOTE | 2023-07-09 11:11 | P.PN ---
Progress Note - Text Progress Note Date: 07/09/23 Interval history: Patient was seen laying in her bed today and was directable and agreeable to speak with specifications writer. Patient wanted to speak in her room today. Patient claims that she is in a brighter mood today, asked if she could have the Zoloft increased, states that her mood and anxiety been mildly improving since yesterday. Claims that she was able to sleep fairly last night, denying any side effects at this time. Continues to be fairly focused on discharge. Admits to improving appetite has been going to some groups. At this time patient denies any suicidal or homicidal ideations intent or plan. Denies any Auditory or visual hallucinations. Patient denies any side effects from the medications and has been compliant with meds. Mental status exam: General Appearance: Patient appears to be stated age is alert, directable, and cooperative. Behavior: No agitated behavior. Patient is calm and directable less irritable today, brighter affect Speech: Patient's speech is fluent and nonpressured. Improving mildly Mood/Affect: Mood is improving mildly, affect is congruent and constricted. Affect improving Suicidality/Homicidality: Patient denies having any suicidal or homicidal ideation intent or plan. Perceptions: Patient denies any auditory or visual hallucinations. Though content/process: There is no evidence of any delusional thought content and thought process is linear and goal-directed. Focused on discharge Memory and concentration: AOX3, grossly intact for the purposes of this session Judgment and insight: improving mildly Assessment/Plan: Continue with current diagnosis. Patient continues to meet criteria for inpatient psychiatric admission for symptom stabilization and safety. Patient will be maintained on current psychotropic medication regimen. Monitor for medication compliance and for any psychotropic medication side effects. Will continue to monitor ongoing response to treatment. Encouraged participation in milieu. Possible discharge tomorrow-monday if patient continues to improve
[2023-07-09] MEDS: SERTRALINE 50 MG TAB PO STA (11:13)
--- NOTE | 2023-07-09 23:14 | P.CONS ---
History of Present Illness - Reason for Consult Consult date: 07/07/23 - Chief Complaint suicidal - History of Present Illness Qi Pena is a 57 yo F with PMH of major depression, HTN, HLD, T2DM, tobacco abuse who presented to the ED with suicidal ideation and depression. She is admitted to inpatient mental health unit for assessment and stabilization. Pt does complain today of a bump on her breast today, denies any trauma, drainage, fever, chills. She denies chest pain, shortness of breath, nausea, vomiting. Labs are reviewed with WBC 7.5k, Hgb 13, Cr 0.83, UA neg, UDS negative. Review of Systems All systems: negative Constitutional: Denies chills, Denies fever Eyes: denies blurred vision, denies pain Ears, nose, mouth and throat: Denies headache, Denies sore throat Cardiovascular: Denies chest pain, Denies shortness of breath Respiratory: Denies cough Gastrointestinal: Denies abdominal pain, Denies diarrhea, Denies nausea, Denies vomiting Genitourinary: Denies dysuria, Denies hematuria Musculoskeletal: Denies myalgias Integumentary: Denies pruritus, Denies rash Neurological: Denies numbness, Denies weakness Psychiatric: Denies anxiety, Denies depression Endocrine: Denies fatigue, Denies weight change Past Medical History Past Medical History: Asthma, Heart Failure, COPD, Diabetes Mellitus, Deep Vein Thrombosis (DVT), GERD/Reflux, Hearing Disorder / Deafness, Hyperlipidemia, Hypertension, Liver Disease, Osteoarthritis (OA), Pneumonia, Seizure Disorder, Sleep Apnea/CPAP/BIPAP, Thyroid Disorder Additional Past Medical History / Comment(s): Hx BLOOD CLOT LEFT ARM, GRAVES DISEASE, CPAP use, IBS, difficulty swallowing, hx Hepatitis C with treatment in 2018, short term memory loss, hard of hearing, hx seizures, "none in many yrs", "Pre-diabetic, right breast abscess, chronic back pain" History of Any Multi-Drug Resistant Organisms: MRSA Year Discovered:: 2017 MDRO Source:: UNDER THE RIGHT BREAST Past Surgical History: Breast Surgery, Cholecystectomy, Orthopedic Surgery, Tubal Ligation Additional Past Surgical History / Comment(s): RIGHT BREAST SURGERY X2(cyst/abscess), multiple lipomas removed from right shoulder and X2 from right arm AND LT ARM, thyroidectomy. Past Anesthesia/Blood Transfusion Reactions: No Reported Reaction Additional Past Anesthesia/Blood Transfusion Reaction / Comm: no hx blood transfusions Past Psychological History: Anxiety, Bipolar, Depression, PTSD, Schizoaffective Disorder Smoking Status: Current every day smoker Past Alcohol Use History: Abuse Additional Past Alcohol Use History / Comment(s): STARTED SMOKING AT AGE 5 QUIT ON AND OFF (TRYING TO QUIT NOW), 3 cig's a day. Hx of crack and ETOH use but states she hasn't used either since 2023. BAT 0 and UDS neg. Past Drug Use History: Marijuana Additional Drug Use History / Comment(s): NO MARIJUANA OR COCAINE IN PAST 1 1/2 MONTHS - Past Family History Mother Family Medical History: Cancer, Deep Vein Thrombosis (DVT) Father Family Medical History: Cancer Brother(s) Family Medical History: Diabetes Mellitus Sister(s) Family Medical History: Myocardial Infarction ([place]) Medications and Allergies Home Medications Medication Instructions Recorded Confirmed Type Atorvastatin Calcium [Lipitor] 40 mg PO HS 30 Days #30 tab 06/24/22 07/06/23 Rx Pregabalin [Lyrica] 150 mg PO BID 14 Days #28 cap 06/24/22 07/06/23 Rx hydrOXYzine HCL [Atarax] 50 mg PO TID 30 Days #90 tab 06/24/22 07/06/23 Rx valACYclovir HCL [Valacyclovir] 500 mg PO DAILY 30 Days #30 tab 06/24/22 07/06/23 Rx Levothyroxine Sodium [Synthroid] 175 mcg PO DAILY 08/19/22 07/06/23 History Albuterol Inhaler [Ventolin Hfa 1 puff INHALATION RT-QID PRN 08/25/22 07/06/23 History Inhaler] Omeprazole 40 mg PO DAILY 08/25/22 07/06/23 History lisinopriL [Prinivil] 20 mg PO DAILY 08/25/22 07/06/23 History Liraglutide [Saxenda] 3 mg SQ Q3D 12/13/22 07/06/23 History Deutetrabenazine [Austedo] 12 mg PO DAILY 01/06/23 07/06/23 History Propranolol [Inderal] 10 mg PO BID PRN 07/06/23 07/06/23 History Ziprasidone [Geodon] 60 mg PO DAILY 07/06/23 07/06/23 History Allergies Allergy/AdvReac Type Severity Reaction Status Date / Time adhesive tape Allergy Itching Verified 07/06/23 17:47 almond Allergy Anaphylaxis Verified 07/06/23 17:47 aripiprazole [From Abilify] Allergy Anaphylaxis Verified 07/06/23 17:47 guaifenesin [From Mucinex] Allergy Anaphylaxis Verified 07/06/23 17:47 haloperidol [From Haldol] Allergy Anaphylaxis Verified 07/06/23 17:47 latex Allergy Swelling/it Verified 07/06/23 17:47 armand Mushroom Allergy Rash/Hives Verified 07/06/23 17:47 tree nut [Pecan] Allergy Rash/Hives Verified 07/06/23 17:47 watermelon Allergy Rash/Hives Verified 07/06/23 17:47 Physical Exam Vitals: Vital Signs Temp Pulse Resp BP Pulse Ox 07/09/23 08:08 98 105/66 07/09/23 06:47 97.7 F 64 16 94/53 97 Gen: obese female in no acute distress HEENT: NC/AT, mmm Neck: supple, no JVD or thyromegaly CV: RRR, no murmur Lungs: Clear throughout Breast: erythema 1x1 cm furuncle Abd: soft, nontender, BS+ Neuro: AAOx3, no focal deficit Skin: warm and dry Results CBC & Chem 7: 07/07/23 07:47 07/07/23 07:47 Assessment and Plan Plan: 1. Suicidal ideation, major depression. Management per psychiatry 2. Cellulitis of breast. Start PO doxycycline 100 mg bid x10 days 3. T2DM. Controlled current. Hold trulicity while inpatient 4. HTN. Continue lisinopril
[2023-07-10] MEDS: SERTRALINE 100 MG TAB PO SCH (07:57)
--- NOTE | 2023-07-10 11:27 | P.PN ---
Progress Note - Text Progress Note Date: 07/10/23 Interval History: Patient was seen today sitting on her bed. She was agreeable to speak to curriculum writer in her room. Patient claims that she is doing a bit better with her medications, she was fairly focused on discharge. She states that she has an upcoming surgery and needs to provide a urine analysis. She states that she has been trying to go to more groups, states that the Zoloft has been helping her racing thoughts and irritability. She claims that she is able to get a bit better sleep at nighttime. Continues to demonstrate mild impulsivity and mild irritability when discussing the discharge planning. Patient is denying any suicidal homicidal ideations intent or plan. Patient denies any auditory, visual hallucinations and denies any paranoia or delusions. Patient denies any side effects from the medications and has been compliant with meds. MENTAL STATUS EXAM: General Appearance: Patient appears to be overweight,older than stated age, is alert, less irritable. Patient appears to have fair hygiene and grooming. Behavior: Patient is seated without any agitated behavior minimizing. less Irritable Speech: Patient's speech is fluent and nonpressured. Loud at times. Improving mildly Mood/Affect: Patient reports their mood is improving, affect is congruent Suicidality/Homicidality: Patient denies having any homicidal/suicidal ideation intent or plan. Though content/process: There is no evidence of any delusional thought content and thought process is linear and goal-directed. Focused on discharge Memory and concentration: AOX3, grossly intact for the purposes of this session. Judgment and insight: Improving mildly IMPRESSIONS: Suicidal Ideations Schizoaffective disorder bipolar type nicotine dependence PLAN: -Patient is admitted under voluntary status to MHU for stabilization of psychiatric symptoms and safety. Patient has signed adult voluntary form but refused the medication consent and is placed in patient's chart. -Medications : Zoloft 100mg daily for mood/anxiety Geodon 60 qhs for psychosis, atarax 50mg tid for anxiety, Inderal as needed for anxiety. -Ativan PRN for agitation/aggression -NRT - nicotine patch -SW on board for discharge planning. Encourage patient to participate in groups to work on coping skill. Likely discharge tomorrow back home if patient continues to improve.
[2023-07-11 06:54] VITALS: TEMP 97.1
[2023-07-11 08:44] VITALS: BP 126/71; PULSE 70
--- NOTE | 2023-07-11 11:06 | P.DS ---
Providers Date of admission: 07/06/23 20:40 Expected date of discharge: 07/11/23 Attending physician: Armin Richards MD Consults: 07/06/23 20:42 Consult Physician Routine Consulting Provider: Junaid Domínguez Consult Reason/Comments: H & P W/MEDICATION AND MEDICAL MANAGEMENT Do you want consulting provider notified?: Yes Primary care physician: Junaid Domínguez MD - Discharge Diagnosis(es) (1) Suicidal ideations Current Visit: Yes Status: Acute Priority: Medium (2) Schizoaffective disorder, bipolar type Current Visit: No Status: Acute Priority: High (3) Nicotine dependence Current Visit: No Status: Chronic Priority: Medium Hospital Course: Admission HPI: Admission note was completed by poem writer "Patient presented to the hospital on 07/05. As per EPS note, "Pt brought herself to the ER for increasing suicidal thoughts and depression. She reports she has been having these thoughts for the last 2 days. She states she has had a lot of stressors lately at home with a loss of a mother figure, it is her dad's birthday, she is waiting to do a back surgery and this is stressing her out. She states she saw Dr. Lynn at [facility] today and he did not think she needed to come to ER but she felt that she just needed someone to talk too. She reports that she is not feeling suicidal at this time, she reports she feels better after talking to people at the hospital. She states "I don't want to hurt me, I love me" She states "I am independent I have cats at home to take care of" She reports a lot of supports Nyla [facility] Terry. She states she also has a lot of supports at [facility]. " Upon today's assessment, patient states that the she attended recently, just reminded her of her sons , and it gave her some pretty significant depression. She claims she is feeling better today, and there is no other stressors in her life. Patient is minimizing her symptoms. Patient increasingly getting irritable during the interview, stating she does not need to be her, and she don't want to be here. Claim she just came here to talk to someone, not to be admitted.Patient claims that she has no suicidal thoughts, and hasn't in about 25-30 years. Patient was fairly evasive, minimizing her symptoms, guarded. Very poor insight and poor frustration tolerance. States her appetite is good, and that she is sleeping well. Patient denies any flight of ideas racing thoughts and increased in goal directed behavior. Patient's UDS was negative for recreational drugs, states she does smoke cigarettes. " Hospital course: Upon admission to the unit patient was directable and agreeable to commence treatment and signed adult voluntary form. Patient was initially isolative and irritable however with time and treatment she eventually got along well with other patients on the unit and followed unit protocol. Patient was compliant with the medications and denied any side effects throughout hospital course. Patient was started on Zoloft and increased to a dose of 100 mg daily for mood/anxiety, Geodon was continued at home dose at 60 mg nightly for psychosis/mood stabilization, Atarax continued at her home dose 50 mg 3 times daily for anxiety, Inderal as needed for anxiety. Patient spoke of her stressors and engaged in therapy both group and individual. Patient was also s een by medical team for history and physical exam. Throughout the course of the hospitalization patient gradually improved with regards to mood, anxiety, suicidal thoughts, hallucinations, sleep and returned back to their baseline level of functioning. On the day of discharge patient denied any suicidal or homicidal ideations intent or plan denied any auditory or visual hallucinations. Patient endorsed wanting to live for her future and her health. The patient denied any access to guns or weapons. Patient denied any paranoia and did not endorse any delusions. Patient does not have a significant history of substance abuse and was counseled on abstaining from all substances including alcohol and marijuana. Patient was also counseled on the medications and need for regular compliance and was encouraged to follow-up with their outpatient appointment for mental health and also for primary care. Prior to discharge a family meeting will be arranged by director social to answer any questions and ensure safety upon discharge. Mental status exam: General Appearance: Patient appears to be mildly overweight, stated age is alert, pleasant, and cooperative. Patient is in no acute distress and has improved hygiene and grooming Behavior: Patient is calmly seated without any agitated behavior. Speech: Patient's speech is fluent and nonpressured. Mood/Affect: Patient reports their mood is "good", affect is congruent and euthymic. Suicidality/Homicidality: Patient denies having any suicidal or homicidal ideation intent or plan. Perceptions: Patient denies any auditory or visual hallucinations. Though content/process: There is no evidence of any delusional thought content and thought process is linear and goal-directed. More future oriented Memory and concentration: AOX3, grossly intact for the purposes of this session. Can spell "WORLD" backwards correctly. Judgment and insight: improved with guarded prognosis Impression: Suicidal Ideations Schizoaffective disorder bipolar type nicotine dependence Plan: -Continue with discharge today as patient has improved and stabilized psychiatrically and is not currently an imminent threat to herself and/or others. [Patient will remain at chronically elevated risk for harm to self and/or others due to her impulsivity -Continue medications: Zoloft 100 mg daily for mood/anxiety, Geodon 60 mg nightly for psychosis/mood stabilization, Atarax 50 mg 3 times daily for anxiety, Inderal twice daily as needed for anxiety. -Patient was counseled on the need for medication compliance and appropriate follow-up at mental health and also primary care for medical issues. Patient verbalized understanding and agreed. -Social work to arrange for and conduct family meeting to ensure safety upon discharge and answer any questions/concerns. Social work also to arrange for patients follow up appointments with [facility] for psychiatric care along with follow up with primary care provider. -Patient counseled on abstaining from recreational drugs and marijuana and alcohol. Was informed/educated on the adverse effects on their physical and mental health. Patient verbally agreed and understood. -Patient was instructed to return to the hospital or seek immediate medical care if their psychiatric or medical symptoms do worsen or reoccur. Allergies Allergy/AdvReac Type Severity Reaction Status Date / Time adhesive tape Allergy Itching Verified 07/06/23 17:47 almond Allergy Anaphylaxis Verified 07/06/23 17:47 aripiprazole from Abilify Allergy Anaphylaxis Verified 07/06/23 17:47 guaifenesin from Mucinex Allergy Anaphylaxis Verified 07/06/23 17:47 haloperidol from Haldol Allergy Anaphylaxis Verified 07/06/23 17:47 latex Allergy Swelling/it Verified 07/06/23 17:47 armand Mushroom Allergy Rash/Hives Verified 07/06/23 17:47 tree nut pecan Allergy Rash/Hives Verified 07/06/23 17:47 watermelon Allergy Rash/Hives Verified 07/06/23 17:47 Laboratory Results WBC 7.5 k/uL (3.8-10.6) 07/07/23 07:47 RBC 4.09 m/uL (3.80-5.40) 07/07/23 07:47 Hgb 13.0 gm/dL (11.4-16.0) 07/07/23 07:47 Hct 40.3 % (34.0-46.0) 07/07/23 07:47 MCV 98.4 fL (80.0-100.0) 07/07/23 07:47 MCH 31.9 pg (25.0-35.0) 07/07/23 07:47 MCHC 32.4 g/dL (31.0-37.0) 07/07/23 07:47 RDW 13.1 % (11.5-15.5) 07/07/23 07:47 Plt Count 220 k/uL (150-450) 07/07/23 07:47 MPV 8.0 07/07/23 07:47 Neutrophils % 60 % 07/07/23 07:47 Lymphocytes % 30 % 07/07/23 07:47 Monocytes % 6 % 07/07/23 07:47 Eosinophils % 3 % 07/07/23 07:47 Basophils % 1 % 07/07/23 07:47 Neutrophils # 4.5 k/uL (1.3-7.7) 07/07/23 07:47 Lymphocytes # 2.2 k/uL (1.0-4.8) 07/07/23 07:47 Monocytes # 0.4 k/uL (0-1.0) 07/07/23 07:47 Eosinophils # 0.2 k/uL (0-0.7) 07/07/23 07:47 Basophils # 0.0 k/uL (0-0.2) 07/07/23 07:47 Sodium 142 mmol/L (137-145) 07/07/23 07:47 Potassium 4.3 mmol/L (3.5-5.1) 07/07/23 07:47 Chloride 111 mmol/L (98-107) H 07/07/23 07:47 Carbon Dioxide 24 mmol/L (22-30) 07/07/23 07:47 Anion Gap 7 mmol/L 07/07/23 07:47 BUN 10 mg/dL (7-17) 07/07/23 07:47 Creatinine 0.83 mg/dL (0.52-1.04) 07/07/23 07:47 Est GFR (CKD-EPI)AfAm >90 (>60 ml/min/1.73 sqM) 07/07/23 07:47 Est GFR (CKD-EPI)NonAf 79 (>60 ml/min/1.73 sqM) 07/07/23 07:47 Glucose 91 mg/dL (74-99) 07/07/23 07:[address] Glu mg/dL 108 mg/dL 07/07/23 07:47 Hemoglobin A1c 5.4 % (<=6.0) 07/07/23 07:47 Calcium 8.6 mg/dL (8.4-10.2) 07/07/23 07:47 Total Bilirubin 0.4 mg/dL (0.2-1.3) 07/07/23 07:47 Conjugated Bilirubin 0.0 mg/dL (0.0-0.3) 07/07/23 07:47 Unconjugated Bilirubin 0.3 mg/dL (0.0-1.1) 07/07/23 07:47 Delta Bilirubin 0.1 mg/dL (0.0-0.2) 07/07/23 07:47 AST 18 U/L (14-36) 07/07/23 07:47 ALT 15 U/L (4-34) 07/07/23 07:47 Alkaline Phosphatase 63 U/L (38-126) 07/07/23 07:47 Total Protein 6.7 g/dL (6.3-8.2) 07/07/23 07:47 Albumin 3.8 g/dL (3.5-5.0) 07/07/23 07:47 Triglycerides 131.00 mg/dL (0.00-149.00) 07/07/23 07:47 Cholesterol 129.00 mg/dL (0.00-200.00) 07/07/23 07:47 LDL Cholesterol, Calc 57.9 mg/dL (0.0-131.0) 07/07/23 07:47 VLDL Cholesterol, Calc 26.20 mg/dL (5.00-40.00) 07/07/23 07:47 HDL Cholesterol 44.90 mg/dL (40.00-60.00) 07/07/23 07:47 Cholesterol/HDL Ratio 2.87 Ratio 07/07/23 07:47 TSH 0.987 mIU/L (0.465-4.680) 07/07/23 07:47 Urine Color Yellow 07/06/23 16:36 Urine Appearance Clear (Clear) 07/06/23 16:36 Urine pH 6.0 (5.0-8.0) 07/06/23 16:36 Ur Specific [place] 1.021 (1.001-1.035) 07/06/23 16:36 Urine Protein Negative (Negative) 07/06/23 16:36 Urine Glucose (UA) Negative (Negative) 07/06/23 16:36 Urine Ketones Negative (Negative) 07/06/23 16:36 Urine Blood Negative (Negative) 07/06/23 16:36 Urine Nitrite Negative (Negative) 07/06/23 16:36 Urine Bilirubin Negative (Negative) 07/06/23 16:36 Urine Urobilinogen <2.0 mg/dL (<2.0) 07/06/23 16:36 Ur Leukocyte Esterase Negative (Negative) 07/06/23 16:36 Urine Opiates Screen Not Detected (NotDetected) 07/06/23 16:36 Ur Oxycodone Screen Not Detected (NotDetected) 07/06/23 16:36 Urine Methadone Screen Not Detected (NotDetected) 07/06/23 16:36 Ur Barbiturates Screen Not Detected (NotDetected) 07/06/23 16:36 U Tricyclic Antidepress Not Detected (NotDetected) 07/06/23 16:36 Ur Phencyclidine Scrn Not Detected (NotDetected) 07/06/23 16:36 Ur Amphetamines Screen Not Detected (NotDetected) 07/06/23 16:36 U Methamphetamines Scrn Not Detected (NotDetected) 07/06/23 16:36 U Benzodiazepines Scrn Not Detected (NotDetected) 07/06/23 16:36 Urine Cocaine Screen Not Detected (NotDetected) 07/06/23 16:36 U Marijuana (THC) Screen Not Detected (NotDetected) 07/06/23 16:36 Influenza Type A (PCR) Not Detected (Not Detectd) 07/06/23 19:55 Influenza Type B (PCR) Not Detected (Not Detectd) 07/06/23 19:55 RSV (PCR) Not Detected (Not Detectd) 07/06/23 19:55 SARS-CoV-2 (PCR) Not Detected (Not Detectd) 07/06/23 19:55 Vital Signs Temp 97.1 F L 07/11/23 06:23 Pulse 70 07/11/23 08:09 Resp 16 07/10/23 06:37 BP 126/71 07/11/23 08:09 Pulse Ox 97 07/09/23 06:47 FiO2 21 07/10/23 04:28 Patient Condition at Discharge: Stable Plan - Discharge Summary Discharge Rx Participant: No New Discharge Prescriptions: New Ibuprofen [Motrin] 600 mg PO Q6HR PRN tab PRN Reason: Moderate Pain (Scale 4 To 6) Acetaminophen Tab [Tylenol] 650 mg PO Q4HR PRN tab PRN Reason: Mild Pain (Scale 1 To 3) Doxycycline [Vibramycin] 100 mg PO BID 7 Days #14 cap Sertraline [Zoloft] 100 mg PO DAILY 30 Days #30 tab Continue valACYclovir HCL [Valacyclovir] 500 mg PO DAILY 30 Days #30 tab Levothyroxine Sodium [Synthroid] 175 mcg PO DAILY Albuterol Inhaler [Ventolin Hfa Inhaler] 1 puff INHALATION RT-QID PRN PRN Reason: Shortness Of Breath Liraglutide [Saxenda] 3 mg SQ Q3D Deutetrabenazine [Austedo] 12 mg PO DAILY Ziprasidone [Geodon] 60 mg PO DAILY 30 Days #30 cap Atorvastatin Calcium [Lipitor] 40 mg PO HS 30 Days #30 tab Pregabalin [Lyrica] 150 mg PO BID 14 Days #28 cap lisinopriL [Prinivil] 20 mg PO DAILY Omeprazole 40 mg PO DAILY Propranolol [Inderal] 10 mg PO BID PRN PRN Reason: Anxiety hydrOXYzine HCL [Atarax] 50 mg PO TID 30 Days #90 tab Discharge Medication List Atorvastatin Calcium [Lipitor] 40 mg PO HS 30 Days #30 tab 06/24/22 [Rx] Pregabalin [Lyrica] 150 mg PO BID 14 Days #28 cap 06/24/22 [Rx] valACYclovir HCL [Valacyclovir] 500 mg PO DAILY 30 Days #30 tab 06/24/22 [Rx] Levothyroxine Sodium [Synthroid] 175 mcg PO DAILY 08/19/22 [History] Albuterol Inhaler [Ventolin Hfa Inhaler] 1 puff INHALATION RT-QID PRN 08/25/22 [History] Omeprazole 40 mg PO DAILY 08/25/22 [History] lisinopriL [Prinivil] 20 mg PO DAILY 08/25/22 [History] Liraglutide [Saxenda] 3 mg SQ Q3D 12/13/22 [History] Deutetrabenazine [Austedo] 12 mg PO DAILY 01/06/23 [History] Propranolol [Inderal] 10 mg PO BID PRN 07/06/23 [History] Acetaminophen Tab [Tylenol] 650 mg PO Q4HR PRN tab 07/11/23 [Rx] Doxycycline [Vibramycin] 100 mg PO BID 7 Days #14 cap 07/11/23 [Rx] Ibuprofen [Motrin] 600 mg PO Q6HR PRN tab 07/11/23 [Rx] Sertraline [Zoloft] 100 mg PO DAILY 30 Days #30 tab 07/11/23 [Rx] Ziprasidone [Geodon] 60 mg PO DAILY 30 Days #30 cap 07/11/23 [Rx] hydrOXYzine HCL [Atarax] 50 mg PO TID 30 Days #90 tab 07/11/23 [Rx] Follow up Appointment(s)/Referral(s): [facility] [Outside] - 07/12/23 11:00 am (07-12-23 at 11:00 with Enrrique Carter 07-13-23 at 11:[address] Lynn Both at the [facility]) Junaid Domínguez MD [Primary Care Provider] - 1-2 days Patient Instructions/Handouts: How to Stop Smoking (DC), Depression (DC), Schizoaffective Disorder (DC) Activity/Diet/Wound Care/Special Instructions: Avoid the use of street drugs and alcohol. Take all medications as prescribed. When you are in need of refills on your medications, please contact your medical provider and/or outpatient psychiatrist/provider to have this done. Please go to your scheduled outpatient appointment for aftercare treatment. If symptoms return or become worse, call the crisis line at and/or go to the nearest emergency room for evaluation. National Suicide Hotline 988. Discharge Disposition: HOME SELF-CARE
== END 2023-07-11 12:00 | disposition home or self-care (01) | DRG 750 ==
LOC: EC 15:06 → 3MHU 20:40
PROVIDERS: ADMIT Psychiatry & Neurology Psychiatry; ATTEND Psychiatry & Neurology Psychiatry
PROC: 5A09357 Assistance with Respiratory Ventilation, Less than 24 Consecutive Hours, Continuous Positive Airway Pressure (ICD-10-PCS; principal; 2023-07-06)
DX: F25.0 Schizoaffective disorder, bipolar type (principal); E11.9 Type 2 diabetes mellitus without complications; I11.0 Hypertensive heart disease with heart failure; I50.9 Heart failure, unspecified; R45.851 Suicidal ideations; E89.0 Postprocedural hypothyroidism; K76.9 Liver disease, unspecified; F14.11 Cocaine abuse, in remission; F10.11 Alcohol abuse, in remission; Z68.37 Body mass index [BMI] 37.0-37.9, adult; Z11.52 Encounter for screening for COVID-19; Z28.310 Unvaccinated for COVID-19; J44.89 Other specified chronic obstructive pulmonary disease; F43.10 Post-traumatic stress disorder, unspecified; N61.0 Mastitis without abscess; E66.3 Overweight; E78.5 Hyperlipidemia, unspecified; G47.30 Sleep apnea, unspecified; G89.29 Other chronic pain; M54.9 Dorsalgia, unspecified; K21.9 Gastro-esophageal reflux disease without esophagitis; H91.90 Unspecified hearing loss, unspecified ear; K58.9 Irritable bowel syndrome, unspecified; M19.90 Unspecified osteoarthritis, unspecified site; F17.210 Nicotine dependence, cigarettes, uncomplicated; Z71.6 Tobacco abuse counseling; Z79.890 Hormone replacement therapy; Z79.899 Other long term (current) drug therapy; Z86.14 Personal history of Methicillin resistant Staphylococcus aureus infection; Z86.19 Personal history of other infectious and parasitic diseases; Z86.718 Personal history of other venous thrombosis and embolism; Z71.41 Alcohol abuse counseling and surveillance of alcoholic; Z71.51 Drug abuse counseling and surveillance of drug abuser; Z88.8 Allergy status to other drugs, medicaments and biological substances; Z91.040 Latex allergy status; Z81.8 Family history of other mental and behavioral disorders
CPT/HCPCS: 80053; 80061; 80306; 81003; 82075; 82248; 83036; 84443; 85025; 87636; 93005; 94660; 99285

== ENCOUNTER 2023-10-09 17:06 | Emergency (ER) | payer OTHER ==
[2023-10-09 17:32] VITALS: TEMP 98
[2023-10-09 18:26] LABS: Basophils # (A) 0.1 k/uL (0-0.2); Basophils % (A) 0 %; Eosinophils # (A) 0.3 k/uL (0-0.7); Eosinophils % (A) 2 %; HCT 40.4 % (34.0-46.0); HGB 12.9 gm/dL (11.4-16.0); Lymphocytes % (A) 33 %; MCH 30.7 pg (25.0-35.0); MCV 96.1 fL (80.0-100.0); Mean Platelet Volume 7.6; Monocytes # (A) 0.8 k/uL (0-1.0); Monocytes % (A) 6 %; Neutrophils # (A) 6.8 k/uL (1.3-7.7); Neutrophils % (A) 56 %; Platelet Count 286 k/uL (150-450); RBC 4.21 m/uL (3.80-5.40); RDW 12.5 % (11.5-15.5); WBC 12.1 k/uL (3.8-10.6)
--- NOTE | 2023-10-09 18:26 | ED ---
General Adult HPI - General Chief complaint: Abdominal Pain Stated complaint: NVD Time Seen by Provider: 10/09/23 18:15 Source: patient, RN notes reviewed Mode of arrival: ambulatory Limitations: no limitations - History of Present Illness Initial comments: Patient is a 58-year-old female present to the emergency department with concerns for abdominal problems. Symptoms have worsened over the past week. Patient has discomfort, mostly left lower abdomen. Patient was diagnosed with presumptive diverticulosis/diverticulitis. Patient has had some nausea and vomiting as well as diarrhea. Decreased oral intake. Patient has chills as well. - Related Data Home Medications Medication Instructions Recorded Confirmed Levothyroxine Sodium [Synthroid] 175 mcg PO DAILY 08/19/22 07/06/23 Albuterol Inhaler [Ventolin Hfa 1 puff INHALATION RT-QID PRN 08/25/22 07/06/23 Inhaler] Omeprazole 40 mg PO DAILY 08/25/22 07/06/23 lisinopriL [Prinivil] 20 mg PO DAILY 08/25/22 07/06/23 Liraglutide [Saxenda] 3 mg SQ Q3D 12/13/22 07/06/23 Deutetrabenazine [Austedo] 12 mg PO DAILY 01/06/23 07/06/23 Propranolol [Inderal] 10 mg PO BID PRN 07/06/23 07/06/23 Previous Rx's Medication Instructions Recorded Atorvastatin Calcium [Lipitor] 40 mg PO HS 30 Days #30 tab 06/24/22 Pregabalin [Lyrica] 150 mg PO BID 14 Days #28 cap 06/24/22 valACYclovir HCL [Valacyclovir] 500 mg PO DAILY 30 Days #30 tab 06/24/22 Acetaminophen Tab [Tylenol] 650 mg PO Q4HR PRN tab 07/11/23 Doxycycline [Vibramycin] 100 mg PO BID 7 Days #14 cap 07/11/23 Ibuprofen [Motrin] 600 mg PO Q6HR PRN tab 07/11/23 Sertraline [Zoloft] 100 mg PO DAILY 30 Days #30 tab 07/11/23 Ziprasidone [Geodon] 60 mg PO DAILY 30 Days #30 cap 07/11/23 hydrOXYzine HCL [Atarax] 50 mg PO TID 30 Days #90 tab 07/11/23 Dicyclomine [Bentyl] 20 mg PO QID PRN #15 tablet 10/09/23 Ondansetron Odt [Zofran Odt] 4 mg PO Q8HR PRN #10 tab 10/09/23 Allergies Allergy/AdvReac Type Severity Reaction Status Date / Time adhesive tape Allergy Itching Verified 07/06/23 17:47 almond Allergy Anaphylaxis Verified 07/06/23 17:47 aripiprazole [From Abilify] Allergy Anaphylaxis Verified 07/06/23 17:47 guaifenesin [From Mucinex] Allergy Anaphylaxis Verified 07/06/23 17:47 haloperidol [From Haldol] Allergy Anaphylaxis Verified 07/06/23 17:47 latex Allergy Swelling/it Verified 07/06/23 17:47 armand Mushroom Allergy Rash/Hives Verified 07/06/23 17:47 tree nut [Pecan] Allergy Rash/Hives Verified 07/06/23 17:47 watermelon Allergy Rash/Hives Verified 07/06/23 17:47 Review of Systems ROS Statement: Those systems with pertinent positive or pertinent negative responses have been documented in the HPI. ROS Other: All systems not noted in ROS Statement are negative. Constitutional: Reports: chills. Denies: fever Eyes: Denies: eye pain ENT: Denies: ear pain Respiratory: Denies: cough, dyspnea Cardiovascular: Denies: chest pain Gastrointestinal: Reports: as per HPI, abdominal pain, nausea, vomiting, diarrhea Genitourinary: Denies: dysuria Musculoskeletal: Denies: back pain Skin: Denies: rash Past Medical History Past Medical History: Asthma, Heart Failure, COPD, Diabetes Mellitus, Deep Vein Thrombosis (DVT), GERD/Reflux, Hearing Disorder / Deafness, Hyperlipidemia, Hypertension, Liver Disease, Osteoarthritis (OA), Pneumonia, Seizure Disorder, Sleep Apnea/CPAP/BIPAP, Thyroid Disorder Additional Past Medical History / Comment(s): Hx BLOOD CLOT LEFT ARM, GRAVES DISEASE, CPAP use, IBS, difficulty swallowing, hx Hepatitis C with treatment in 2018, short term memory loss, hard of hearing, hx seizures, "none in many yrs", "Pre-diabetic, right breast abscess, chronic back pain" History of Any Multi-Drug Resistant Organisms: MRSA Date of last positivie culture/infection: 2017 MDRO Source:: UNDER THE RIGHT BREAST Past Surgical History: Breast Surgery, Cholecystectomy, Orthopedic Surgery, Tubal Ligation Additional Past Surgical History / Comment(s): RIGHT BREAST SURGERY X2(cyst/abscess), multiple lipomas removed from right shoulder and X2 from right arm AND LT ARM, thyroidectomy. Past Anesthesia/Blood Transfusion Reactions: No Reported Reaction Additional Past Anesthesia/Blood Transfusion Reaction / Comment(s): no hx blood transfusions Past Psychological History: Anxiety, Bipolar, Depression, PTSD, Schizoaffective Disorder Smoking Status: Current every day smoker Past Alcohol Use History: Abuse Past Drug Use History: Marijuana - Past Family History Mother Family Medical History: Cancer, Deep Vein Thrombosis (DVT) Father Family Medical History: Cancer Brother(s) Family Medical History: Diabetes Mellitus Sister(s) Family Medical History: Myocardial Infarction (CA) General Exam Limitations: no limitations General appearance: alert, in no apparent distress Head exam: Present: normocephalic Eye exam: Present: normal appearance Neck exam: Present: normal inspection Respiratory exam: Present: normal lung sounds bilaterally Cardiovascular Exam: Present: regular rate, normal rhythm Expanded Peripheral pulses: 2+: Dorsalis Pedis (R), Dorsalis Pedis (L) GI/Abdominal exam: Present: soft, tenderness (Moderate tenderness left lower abdomen). Absent: distended, guarding, rebound, rigid Extremities exam: Present: normal inspection Neurological exam: Present: alert Psychiatric exam: Present: normal affect, normal mood Skin exam: Present: normal color Course Vital Signs 10/09/23 10/09/23 17:29 20:06 Temperature 98.0 F Pulse Rate 64 62 Respiratory 18 19 Rate Blood Pressure 128/78 100/53 O2 Sat by Pulse 98 94 L Oximetry Medical Decision Making - Medical Decision Making Was pt. sent in by a medical professional or institution (, PA, EP TECHNOLOGIST, urgent care, hospital, or prison...) When possible be specific @ -No Did you speak to anyone other than the patient for history (EMS, parent, family, police, friend...)? What history was obtained from this source @ -No Did you review nursing and triage notes (agree or disagree)? Why? @ -I reviewed and agree with nursing and triage notes Were old charts reviewed (outside hosp., previous admission, EMS record, old EKG, old radiological studies, urgent care reports/EKG's, prison records)? Report findings @ -No old charts were reviewed Differential Diagnosis (chest pain, altered mental status, abdominal pain women, abdominal pain men, vaginal bleeding, weakness, fever, dyspnea, syncope, headache, dizziness, GI bleed, back pain, seizure, CVA, palpatations, mental health, musculoskeletal)? @ -Differential Abdominal Pain Women: Appendicitis, Cholecystitis, diverticulosis, ischemic bowel, pancreatitis, hepatitis, UTI, gastroenteritis, AAA, incarcerated hernia, bowel obstruction, constipation, inflammatory bowel, hepatitis, peptic ulcer disease, splenic infarction, perforated viscus, vulvitis, ovarian torsion, PID, kidney stone, placenta abruption, this is not meant to be an all-inclusive list EKG interpreted by me (3pts min.). @ -As above X-rays interpreted by me (1pt min.). @ -None done CT interpreted by me (1pt min.). @ -CT scan without acute abnormality U/S interpreted by me (1pt. min.). @ -None done What testing was considered but not performed or refused? (CT, X-rays, U/S, labs)? Why? @ -None What meds were considered but not given or refused? Why? @ -None Did you discuss the management of the patient with other professionals (professionals i.e. , PA, EP TECHNOLOGIST, lab, RT, psych nurse, social media sr strategy manager, director of assessment, teacher, ground nuclear weapons assembly officer, case consultant)? Give summary @ -No Was smoking cessation discussed for >3mins.? @ -No Was critical care preformed (if so, how long)? @ -No Were there social determinants of health that impacted care today? How? (Homelessness, low income, unemployed, alcoholism, drug addiction, transportation, low edu. Level, literacy, decrease access to med. care, correction, rehab)? @ -No Was there de-escalation of care discussed even if they declined (Discuss DNR or withdrawal of care, Hospice)? DNR status @ -No What co-morbidities impacted this encounter? (DM, HTN, Smoking, COPD, CAD, Cancer, CVA, ARF, Chemo, Hep., AIDS, mental health diagnosis, sleep apnea, morbid obesity)? @ -None Was patient admitted / discharged? Hospital course, mention meds given and route, prescriptions, significant lab abnormalities, going to OR and other pertinent info. @ -Patient reevaluated and resting comfortably in bed. Patient does request additional pain medication secondary to her chronic back pain from laying on the CT scanner. Patient is updated on results and need for follow-up. Undiagnosed new problem with uncertain prognosis? @ -No Drug Therapy requiring intensive monitoring for toxicity (Heparin, Nitro, Insulin, Cardizem)? @ -No Were any procedures done? @ -No Diagnosis/symptom? @ -Vomiting, diarrhea, abdominal pain Acute, or Chronic, or Acute on Chronic? @ -Acute, acute, acute Uncomplicated (without systemic symptoms) or Complicated (systemic symptoms)? @ -Default Side effects of treatment? @ -No Exacerbation, Progression, or Severe Exacerbation? @ -No Poses a threat to life or bodily function? How? (Chest pain, [place], CA, pneumonia, PE, COPD, DKA, ARF, appy, cholecystitis, CVA, Diverticulitis, Homicidal, Suicidal, threat to staff... and all critical care pts) @ -No - Lab Data Result diagrams: 10/09/23 18:13 10/09/23 18:13 Lab Results 10/09/23 10/09/23 Range/Units 18:13 18:13 WBC 12.1 H (3.8-10.6) k/uL RBC 4.21 (3.80-5.40) m/uL Hgb 12.9 (11.4-16.0) gm/dL Hct 40.4 (34.0-46.0) % MCV 96.1 (80.0-100.0) fL MCH 30.7 (25.0-35.0) pg MCHC 32.0 (31.0-37.0) g/dL RDW 12.5 (11.5-15.5) % Plt Count 286 (150-450) k/uL MPV 7.6 Neutrophils % 56 % Lymphocytes % 33 % Monocytes % 6 % Eosinophils % 2 % Basophils % 0 % Neutrophils # 6.8 (1.3-7.7) k/uL Lymphocytes # 4.0 (1.0-4.8) k/uL Monocytes # 0.8 (0-1.0) k/uL Eosinophils # 0.3 (0-0.7) k/uL Basophils # 0.1 (0-0.2) k/uL Sodium 133 L (137-145) mmol/L Potassium 4.1 (3.5-5.1) mmol/L Chloride 103 (98-107) mmol/L Carbon Dioxide 20 L (22-30) mmol/L Anion Gap 10 mmol/L BUN 7 (7-17) mg/dL Creatinine 0.90 (0.52-1.04) mg/dL Est GFR (CKD-EPI)AfAm 82 (>60 ml/min/1.73 sqM) Est GFR (CKD-EPI)NonAf 71 (>60 ml/min/1.73 sqM) Glucose 101 H (74-99) mg/dL Calcium 9.2 (8.4-10.2) mg/dL Total Bilirubin 0.5 (0.2-1.3) mg/dL AST 21 (14-36) U/L ALT 14 (4-34) U/L Alkaline Phosphatase 97 (38-126) U/L Total Protein 7.8 (6.3-8.2) g/dL Albumin 4.7 (3.5-5.0) g/dL Amylase 54 (30-110) U/L Lipase 183 (23-300) U/L Disposition Clinical Impression: Abdominal pain, Vomiting, Diarrhea Disposition: HOME SELF-CARE Condition: Stable Instructions (If sedation given, give patient instructions): Abdominal Pain ( ED), Acute Nausea and Vomiting (ED), Acute Diarrhea (ED) Additional Instructions: Prescriptions have been sent to pharmacy. Please do follow-up with your primary care physician in the next day or 2 for recheck. Return for fever, increased pain, uncontrolled vomiting, worsening symptoms or other concerns. Prescriptions: Dicyclomine [Bentyl] 20 mg PO QID PRN #15 tablet PRN Reason: Pain Ondansetron Odt [Zofran Odt] 4 mg PO Q8HR PRN #10 tab PRN Reason: Nausea Is patient prescribed a controlled substance at d/c from ED?: No Referrals: Junaid Domínguez MD [Primary Care Provider] - 1-2 days Time of Disposition: 20:19
[2023-10-09 18:36] LABS: ALT 14 U/L (4-34); AST 21 U/L (14-36); African American GFR (CKD) 82 (>60 ml/min/1.73 sqM); Albumin 4.7 g/dL (3.5-5.0); Alkaline Phosphatase 97 U/L (38-126); Amylase 54 U/L (30-110); Anion Gap 10 mmol/L; Blood Urea Nitrogen 7 mg/dL (7-17); Calcium 9.2 mg/dL (8.4-10.2); Carbon Dioxide 20 mmol/L (22-30); Chloride 103 mmol/L (98-107); Glucose 101 mg/dL (74-99); Lipase 183 U/L (23-300); Non-African American GFR(CKD) 71 (>60 ml/min/1.73 sqM); Potassium 4.1 mmol/L (3.5-5.1); Sodium 133 mmol/L (137-145); Total Bilirubin 0.5 mg/dL (0.2-1.3); Total Protein 7.8 g/dL (6.3-8.2)
[2023-10-09] MEDS: SODIUM CHLORIDE 0.9% 1,000 ML IV STA (18:36)
[2023-10-09] MEDS: HYDROmorphone 1 MG/ML 1 ML SYRINGE IVP STA ×2 (18:36→20:29)
[2023-10-09] MEDS: ONDANSETRON 4 MG/2 ML VIAL IVP STA (18:36)
[2023-10-09] MEDS: FAMOTIDINE 20 MG/2 ML VIAL IV STA (18:36)
--- NOTE | 2023-10-09 20:01 | CT ---
EXAMINATION TYPE: CT abdomen pelvis w con CT DLP: 1441 mGycm, Automated exposure control for dose reduction was used. DATE OF EXAM: 10/09/2023 7:02 PM COMPARISON: None CLINICAL INDICATION:Female, 58 years old with history of abdominal pain; LLQ abdominal pain x 3 weeks TECHNIQUE: Axial CT abdomen pelvis w con;Sagittal and coronal reformats were created on a separate w orkstation. Contrast used:100 mL of Isovue 300 with IV Contrast, (none if empty) Oral contrast used: without Oral Contrast (none if empty) FINDINGS: LOWER CHEST: Unremarkable ABDOMEN LIVER: Unremarkable GALLBLADDER AND BILE DUCTS: Gallbladder is surgically absent with mild intrahepatic and extra hepatic biliary dilatation likely physiologic and a postcholecystectomy change. No evidence of choledocholit hiasis. PANCREAS: Unremarkable. SPLEEN: Unremarkable. ADRENAL GLANDS: Unremarkable. KIDNEYS AND URETERS: No evidence of hydronephrosis or renal calculus. The ureters are unremarkable. PELVIS BLADDER: Unremarkable REPRODUCTIVE: Unremarkable. ABDOMEN & PELVIS STOMACH AND BOWEL: No evidence of bowel obstruction. PERITONEUM/RETROPERITONEUM: No evidence of pneumoperitoneum or free fluid. VASCULATURE: No evidence of aortic aneurysm. MUSCULOSKELETAL: No acute osseous abnormalities, postsurgical changes to the spine. Hardware appears intact. Fixation hardware at L4-L5 and S1 with hardware intact. Discectomy at L4-L5 and L5-S1. Gael ctomy changes at L4-L5. LYMPH NODES: No gross evidence for lymphadenopathy. SOFT TISSUE/ABDOMINAL WALL: Fat-containing umbilical hernia. IMPRESSION: 1. No evidence for acute abdominal process. 2. Surgical changes spine with hardware intact. 3. Fat-containing umbilical hernia.
[2023-10-09 20:41] VITALS: BP 127/87; PULSE 77; RESP 18
== END 2023-10-09 20:43 | disposition home or self-care (01) ==
LOC: EC 17:06
DX: R10.32 Left lower quadrant pain (principal); R11.2 Nausea with vomiting, unspecified; R19.7 Diarrhea, unspecified; F17.200 Nicotine dependence, unspecified, uncomplicated; Z88.8 Allergy status to other drugs, medicaments and biological substances; Z91.040 Latex allergy status; Z91.09 Other allergy status, other than to drugs and biological substances; Z91.018 Allergy to other foods
CPT/HCPCS: 36415; 80053; 82150; 83690; 85025; 74177; 99284; 96374; 96375 ×2; 96376; 96361; J2405; J3490; J1170; Q9967

== ENCOUNTER 2023-11-27 10:05 | Emergency (ER) | payer OTHER ==
[2023-11-27] MEDS ORDERED: HYDROmorphone 1 MG/ML 1 ML SYRINGE ONE (10:34)
[2023-11-27] MEDS ORDERED: ONDANSETRON 4 MG/2 ML VIAL ONE (10:34)
[2023-11-27] MEDS ORDERED: SODIUM CHLORIDE 0.9% 500 ML BAG ONE (10:52)
== END 2023-11-27 15:15 | disposition home or self-care (01) ==
LOC: EC 10:05
DX: R10.9 Unspecified abdominal pain
CPT/HCPCS: 93005; 96361; 96374; 96375; 99283

== ENCOUNTER → 2024-01-11 | Outpatient (CLI) | payer OTHER ==
[2024-01-11 11:19] VITALS: BP 118/81; PULSE 86; RESP 16; TEMP 98.4
--- NOTE | 2024-01-11 11:46 | P.PROGSL ---
Subjective DATE: 01/11/2024 FOLLOW UP VISIT. Patient with obstructive sleep apnea hypopnea syndrome return to sleep center for follow-up visit. Information from previous visit have been reviewed. Patient is using PAP equipment every night for the whole night, getting PAP supplies in time. The patient does not have significant problems with the mask, PAP unit and humidification. [place] sleepiness scale is 10, which is borderline. I checked information from PAP unit. PAP unit pressure 9-15, average 12.2 cm H2O. Usage is 100% for more then 4 hours, average 12.5 hours per night. Leak is 11 l/m, which is in acceptable range. Apnea Hypopnea Index is 1.6, which is normal. MEDICATIONS have been reviewed, please see below. During physical exam: GENERAL: A pleasant patient without any distress. VITAL SIGNS: Please see below, weight is 217 lbs. HEENT: PERRLA, EOMI.low position of soft palate, Mallapati 4 . NECK: Supple. No JVD. LUNGS: Clear to percussion and to auscultation. Good air exchange. No wheezing or rhonchi. HEART: S1, S2 regular. ABDOMEN: Soft and nontender. Obese EXTREMITIES: No clubbing or cyanosis. RADIOLOGICAL METALLURGIST: Awake, alert, and oriented x3. No focal deficit. Impressions: 1. Obstructive sleep apnea-hypopnea syndrome. Patient demonstrated great compliance with treatment, benefiting from treatment. 2. Obesity, BMI 37.2, patient lost 7 pounds since previous visit. 3. History of anxiety. 4. History of migraines episodes, less often and less intensive while on treatment with CPAP. 5. Hypothyroidism secondary to thyroidectomy for Graves' disease. 6. Hyperlipidemia. 7. Status post cholecystectomy. 8. Status post right shoulder surgery. Plan: 1. Continue using PAP equipment every night for the whole night. 2. Sleep hygiene with regular time in bed for at least 7.5-8 hours 3. PAP unit should stay lower then position of the head. 4. Advised patient to remove all remaining water from humidifier canister daily and make it dry after each usage. Refill canister with fresh distilled water before each usage. 5. Watching and losing weight. 6. Precautions related to driving. No driving if feel any sleepiness. 7. I will maintain prescription for PAP supplies including mask, tube, filters. 8. Follow up visit in 8 months or earlier if patient has any problems. Thank you very much for allowing me to participate in the management of your patient. Stephen Chiu MD, PhD, FAASM. Diplomat of [place] [employer], Sleep Medicine Board by [place] [employer] Control Systems Developer of [facility] [place] cc: Junaid Domínguez MD Objective - Vital Signs Vital Signs: Vital Signs Temp 98.4 F 01/11/24 11:18 Pulse 86 01/11/24 11:18 Resp 16 01/11/24 11:18 BP 118/81 01/11/24 11:18 Pulse Ox 99 01/11/24 11:18 FiO2 Intake & Output 01/10/24 01/11/24 01/11/24 18:59 06:59 18:59 Weight 98.43 kg Home Medications: Home Medications Medication Instructions Recorded Confirmed Type Atorvastatin Calcium [Lipitor] 40 mg PO HS 30 Days #30 tab 06/24/22 01/11/24 Rx Pregabalin [Lyrica] 150 mg PO BID 14 Days #28 cap 06/24/22 01/11/24 Rx valACYclovir HCL [Valacyclovir] 500 mg PO DAILY 30 Days #30 tab 06/24/22 01/11/24 Rx Levothyroxine Sodium [Synthroid] 175 mcg PO DAILY 08/19/22 01/11/24 History Albuterol Inhaler [Ventolin Hfa 1 puff INHALATION RT-QID PRN 08/25/22 01/11/24 History Inhaler] Omeprazole 40 mg PO DAILY 08/25/22 01/11/24 History lisinopriL [Prinivil] 20 mg PO DAILY 08/25/22 01/11/24 History Liraglutide [Saxenda] 3 mg SQ Q3D 12/13/22 01/11/24 History Deutetrabenazine [Austedo] 12 mg PO DAILY 01/06/23 07/06/23 History Propranolol [Inderal] 10 mg PO BID PRN 07/06/23 01/11/24 History Acetaminophen Tab [Tylenol] 650 mg PO Q4HR PRN tab 07/11/23 Rx Doxycycline [Vibramycin] 100 mg PO BID 7 Days #14 cap 07/11/23 Rx Ibuprofen [Motrin] 600 mg PO Q6HR PRN tab 07/11/23 Rx Sertraline [Zoloft] 100 mg PO DAILY 30 Days #30 tab 07/11/23 01/11/24 Rx Ziprasidone [Geodon] 60 mg PO DAILY 30 Days #30 cap 07/11/23 01/11/24 Rx hydrOXYzine HCL [Atarax] 50 mg PO TID 30 Days #90 tab 07/11/23 01/11/24 Rx Dicyclomine [Bentyl] 20 mg PO QID PRN #15 tablet 10/09/23 Rx Ondansetron Odt [Zofran Odt] 4 mg PO Q8HR PRN #10 tab 10/09/23 01/11/24 Rx Cyclobenzaprine [Flexeril] 10 mg PO BID 01/11/24 01/11/24 History
== END ==
LOC: 3 N SLEEP 10:54
PROVIDERS: ATTEND Internal Medicine
CPT/HCPCS: 99212

== ENCOUNTER → 2024-10-03 | Outpatient (CLI) | payer OTHER ==
[2024-10-03 16:19] VITALS: BP 132/85; PULSE 94; RESP 16; TEMP 98.2
--- NOTE | 2024-10-03 17:16 | P.PROGSL ---
Subjective DATE: 10/03/2024 FOLLOW UP VISIT. Patient with obstructive sleep apnea hypopnea syndrome return to sleep center for follow-up visit. Information from previous visit have been reviewed. Patient is using PAP equipment every night for the whole night, getting PAP supplies in time. Patient likes fullface mask which goes under the nose. [place] sleepiness scale is 7, which is normal. I checked information from PAP unit. PAP unit pressure 9-15, average 14.8 cm H2O. Usage is 95% for more then 4 hours, average 7.5 hours per night. Leak is 7 l/m, which is in acceptable range. Apnea Hypopnea Index is 1.4, which is normal. MEDICATIONS have been reviewed, please see below. During physical exam: GENERAL: A pleasant patient without any distress. VITAL SIGNS: Please see below, weight is 232 lbs. HEENT: PERRLA, EOMI.low position of soft palate, Mallapati 4. NECK: Supple. No JVD. LUNGS: Clear to percussion and to auscultation. Good air exchange. No wheezing or rhonchi. HEART: S1, S2 regular. ABDOMEN: Soft and nontender. Slightly obese EXTREMITIES: No clubbing or cyanosis. LIFE AGENT: Awake, alert, and oriented x3. No focal deficit. Impressions: 1. Obstructive sleep apnea-hypopnea syndrome. Patient demonstrated great compliance with treatment, benefiting from treatment. 2. Obesity, BMI 39.8, patient increased weight on 15 pounds. 3. History of anxiety. 4. History of migraine episodes. 5. Status post thyroidectomy for Graves' disease. 6. Hyperlipidemia. 7. Status post right shoulder surgery. 8. Status post cholecystectomy. Plan: 1. Continue using PAP equipment every night for the whole night. 2. Sleep hygiene with regular time in bed for at least 7.5-8 hours 3. PAP unit should stay lower then position of the head. 4. Advised patient to remove all remaining water from humidifier canister daily and make it dry after each usage. Refill canister with fresh distilled water before each usage. 5. Watching weight. 6. Precautions related to driving. No driving if feel any sleepiness. 7. I will maintain prescription for PAP supplies including mask, tube, filters. Patient should get fullface mask which goes under the nose. 8. Follow up visit in 8 months or earlier if patient has any problems. Thank you very much for allowing me to participate in the management of your patient. Stephen Chiu MD, PhD, FAASM. Diplomat of [place] [employer], Sleep Medicine Board by [place] [employer] Human Resources Benefits Coordinator of [facility] [place] Objective - Vital Signs Vital Signs: Vital Signs Temp 98.2 F 10/03/24 16:19 Pulse 94 10/03/24 16:19 Resp 16 10/03/24 16:19 BP 132/85 10/03/24 16:19 Pulse Ox 98 10/03/24 16:19 FiO2 Intake & Output 10/02/24 10/03/24 10/03/24 18:59 06:59 18:59 Weight 105.233 kg Home Medications: Home Medications Medication Instructions Recorded Confirmed Type Atorvastatin Calcium [Lipitor] 40 mg PO HS 30 Days #30 tab 06/24/22 01/11/24 Rx Pregabalin [Lyrica] 150 mg PO BID 14 Days #28 cap 06/24/22 01/11/24 Rx valACYclovir HCL [Valacyclovir] 500 mg PO DAILY 30 Days #30 tab 06/24/22 01/11/24 Rx Levothyroxine Sodium [Synthroid] 175 mcg PO DAILY 08/19/22 01/11/24 History Albuterol Inhaler [Ventolin Hfa 1 puff INHALATION RT-QID PRN 08/25/22 01/11/24 History Inhaler] Omeprazole 40 mg PO DAILY 08/25/22 01/11/24 History lisinopriL [Prinivil] 20 mg PO DAILY 08/25/22 01/11/24 History Liraglutide [Saxenda] 3 mg SQ Q3D 12/13/22 01/11/24 History Deutetrabenazine [Austedo] 12 mg PO DAILY 01/06/23 07/06/23 History Propranolol [Inderal] 10 mg PO BID PRN 07/06/23 01/11/24 History Acetaminophen Tab [Tylenol] 650 mg PO Q4HR PRN tab 07/11/23 Rx Doxycycline [Vibramycin] 100 mg PO BID 7 Days #14 cap 07/11/23 Rx Ibuprofen [Motrin] 600 mg PO Q6HR PRN tab 07/11/23 Rx Sertraline [Zoloft] 100 mg PO DAILY 30 Days #30 tab 07/11/23 01/11/24 Rx Ziprasidone [Geodon] 60 mg PO DAILY 30 Days #30 cap 07/11/23 01/11/24 Rx hydrOXYzine HCL [Atarax] 50 mg PO TID 30 Days #90 tab 07/11/23 01/11/24 Rx Dicyclomine [Bentyl] 20 mg PO QID PRN #15 tablet 10/09/23 Rx Ondansetron Odt [Zofran Odt] 4 mg PO Q8HR PRN #10 tab 10/09/23 01/11/24 Rx Cyclobenzaprine [Flexeril] 10 mg PO BID 01/11/24 01/11/24 History
== END ==
LOC: 3 N SLEEP 15:42
PROVIDERS: ATTEND Internal Medicine
DX: G47.33 Obstructive sleep apnea (adult) (pediatric) (principal); E66.9 Obesity, unspecified; F41.9 Anxiety disorder, unspecified; E78.5 Hyperlipidemia, unspecified; Z90.49 Acquired absence of other specified parts of digestive tract; Z68.39 Body mass index [BMI] 39.0-39.9, adult; Z98.890 Other specified postprocedural states; Z86.69 Personal history of other diseases of the nervous system and sense organs; Z99.89 Dependence on other enabling machines and devices; Z91.048 Other nonmedicinal substance allergy status; Z91.018 Allergy to other foods; Z91.040 Latex allergy status; Z88.8 Allergy status to other drugs, medicaments and biological substances
CPT/HCPCS: 99212

== ENCOUNTER → 2024-10-30 | Outpatient (CLI) | payer OTHER ==
--- NOTE | 2024-10-30 08:16 | MM ---
Reason for Exam: Clinical finding. Last mammogram was performed 2 year(s) and 2 month(s) ago. Indicated Problems: Palpable abnormality of the right side for 2 Day(s). Patient History: Menarche at age 9. First Full-Term at age 17. Postmenopausal. Patient has history of breast feeding. Paternal aunt had breast cancer. Maternal cousin had breast cancer at or over age 50. Risk Values: Elizabeth 5 year model risk: 1.1%. NCI Lifetime model risk: 6.0%. Prior Study Comparison: 10/15/2020 Bilateral MG 3D screening mammo w/cad, [facility]. 08/31/2021 Bilateral MG 3D diag mammo w/cad P[facility], [facility]. 09/13/2022 Bilateral MG 3D diag mammo w/cad [facility], [facility]. Tissue Density: There are scattered areas of fibroglandular density. Findings: Analyzed By CAD. No discrete mass at the sites of clinical concern right breast. Ultrasound is recommended. No suspicious microcalcifications within either breast. Overall Assessment: Incomplete: need additional imaging evaluation, BI-RAD 0 Management: Diagnostic Breast Ultrasound of the right breast. . Results were given to the patient verbally at the time of exam. Patient should continue monthly self-breast exams. A clinical breast exam by your physician is recommended on an annual basis. This exam should not preclude additional follow-up of suspicious palpable abnormalities. Note on Elizabeth scores and lifetime risk: 1. A Elizabeth score greater than 3% is considered moderate risk. If this is the case, consider specialist referral to assess eligibility for a risk reducing agent. 2. If overall lifetime risk for the development of breast cancer is 20% or higher, the patient may qualify for future screening with alternating mammogram and breast MRI. [facility], , 10/30/2024 7:57 AM. Electronically signed and approved by: Tylor Orourke M.D. Radiologis
--- NOTE | 2024-10-30 08:26 | USB ---
Reason for Exam: Clinical finding. Patient History: Menarche at age 9. First Full-Term at age 17. Postmenopausal. Patient has history of breast feeding. Paternal aunt had breast cancer. Maternal cousin had breast cancer at or over age 50. Risk Values: Elizabeth 5 year model risk: 1.1%. NCI Lifetime model risk: 6.0%. Technique: Method: Targeted. Prior Study Comparison: 10/15/2020 Bilateral MG 3D screening mammo w/cad, [facility]. 08/31/2021 Bilateral MG 3D diag mammo w/cad [facility]. 09/13/2022 Bilateral MG 3D diag mammo w/cad [facility]. Findings: The lower section of the breast of the right breast, the axilla of the right breast and the retroareolar of the right breast were scanned. No solid or cystic masses are identified.. Overall Assessment: Negative, BI-RAD 1 Management: Screening Mammogram of both breasts in 1 year. A clinical breast exam by your physician is recommended on an annual basis and results should be correlated with mammographic findings. This exam should not preclude additional follow-up of suspicious palpable abnormalities. Results were given to the patient verbally at the time of exam. [facility], , 10/30/2024 8:15 AM. Electronically signed and approved by: Tylor Orourke M.D. Radiolog[facility]
== END | disposition home or self-care (01) ==
LOC: RADMAMWWP 07:07
PROVIDERS: ATTEND Family Medicine
DX: R92.323 Mammographic fibroglandular density, bilateral breasts (principal); N63.10 Unspecified lump in the right breast, unspecified quadrant; Z78.0 Asymptomatic menopausal state; Z80.3 Family history of malignant neoplasm of breast
CPT/HCPCS: 77066; 76642; G0279; 77062